=== PATIENT | female | born 1985 | race Caucasian/White ===

== ENCOUNTER 2016-10-06 22:18 | Observation (INO) | payer OTHER ==
[2016-10-06] MEDS ORDERED: MORPHINE SULFATE 10 MG/ML INJ IV ONE (22:57)
[2016-10-06] MEDS ORDERED: LIDOCAINE 1% INJ-PF (10 MG/ML) 30 ML SDV INJ ONE (22:58)
--- NOTE | 2016-10-06 22:58 | ER Document Report ---
ED GI Bleed / Rectal Pain - General Chief Complaint: Rectal Bleeding Stated Complaint: RECTAL BLEEDING Time Seen by Provider: 10/06/16 22:36 Mode of Arrival: Ambulatory Information source: Patient - HPI Patient complains to provider of: Bright red bld from rect., Hemorrhoids Onset: This afternoon Timing/Duration: Sudden Quality of pain: Achy Severity of symptoms: Moderate Pain Level: 4 Emesis description: Bright red blood Rectal bleeding: Bleeding w/o stool Associated symptoms: None Exacerbated by: Denies Relieved by: Denies Similar symptoms previously: Yes Recently seen / treated by doctor: No Notes: There is a 31-year-old female with a history of internal and external hemorrhoids, this afternoon around 3 PM she started having profuse bleeding from her rectal area, she denies any trauma, she recently moved here from [place] but reports when she saw him a physician in the [place] area and they recommended a procedure for her hemorrhoids, since she moved down here she was unable to follow-up and has not been seen by a physician in the [place] area yet, she reports rectal pain, denies any fevers, no vomiting Past Medical History - General Information source: Patient - Social History Smoking Status: Unknown if Ever Smoked Family History: Reviewed & Not Pertinent Review of Systems - Review of Systems Constitutional: No symptoms reported EENT: No symptoms reported Cardiovascular: No symptoms reported Respiratory: No symptoms reported Gastrointestinal: Rectal bleeding Genitourinary: No symptoms reported Female Genitourinary: No symptoms reported Musculoskeletal: No symptoms reported Skin: No symptoms reported Hematologic/Lymphatic: No symptoms reported Neurological/Psychological: No symptoms reported -: Yes All other systems reviewed and negative Physical Exam - Vital signs Vitals: Resp Pulse Ox 12 100 10/06/16 22:43 10/06/16 22:43 - General General appearance: Appears well, Alert In distress: None - HEENT Head: Normocephalic, Atraumatic Eyes: Normal Conjunctiva: Normal Extraocular movements intact: Yes Eyelashes: Normal Pupils: PERRL - Respiratory Respiratory status: No respiratory distress - Cardiovascular Rhythm: Regular, Tachycardia - Abdominal Inspection: Normal - Rectal Tenderness: Yes Stool: Bloody Hemorrhoids: Internal, External - Back Back: Normal, Nontender - Extremities General upper extremity: Normal inspection General lower extremity: Normal inspection - Neurological Orientation: AAOx4 [place] Coma Scale Eye Opening: Spontaneous [place] Coma Scale Verbal: Oriented [place] Coma Scale Motor: Obeys Commands [place] Coma Scale Total: 15 - Psychological Associated symptoms: Normal affect, Normal mood - Skin Skin Temperature: Warm Skin Moisture: Dry Skin Color: Normal Course - Re-evaluation Re-evalutation: 10/07/16 00:22 Patient was discussed with on-call sports management internship, I discussed patient's presentation, physical exam findings and the temporizing measures I have taken, he reports that the lidocaine with epinephrine soaked tampon in her rectum could acutely control the bleeding but ultimately she is going to need a procedure, and recommends that if she has lost as much blood as it sounds that she should likely be admitted and he will see the patient as an inpatient in the morning, I discussed this plan with patient and at bedside and they are in agreement with patient being admitted, patient was also discussed with the hospitalist who agrees to admit as an observation for further evaluation and treatment - Vital Signs Vital signs: Temp Pulse Resp BP Pulse Ox 12 111/81 100 10/06/16 22:43 10/07/16 00:30 10/07/16 00:30 - Laboratory Result Diagrams: 10/06/16 22:45 10/06/16 22:45 Laboratory results interpreted by me: 10/06/16 10/06/16 22:45 22:45 Seg Neutrophils % 39.2 L Lymphocytes % 51.2 H AST 38 H Procedures - Incision and Drainage Thrombosed hemorrhoid Time completed: 00:59 Type: Single Anesthetic type: 1% Lidocaine w/epi mL's of anesthetic: 2 Blade size: 11 I&D procedure: Chlorprep applied Incision Method: Incision made by scalpel Amount/type of drainage: Small amount of bleeding, tiny clot Notes: 10/07/16 01:00 A lidocaine with epinephrine soaked tampon was placed in patient's rectum Discharge - Discharge Clinical Impression: Lower GI bleed Condition: Stable Disposition: ADMITTED OBSERVATION Admitting Provider: Hospitalist Unit Admitted: Telemetry
[2016-10-06 23:03] LABS: ABSOLUTE BASOPHILS # (AUTO) 0.1 10^3/uL (0.0-0.2); ABSOLUTE EOSINOPHILS # (AUTO) 0.1 10^3/uL (0.0-0.6); ABSOLUTE LYMPHOCYTES (AUTO) 2.7 10^3/uL (0.5-4.7); ABSOLUTE MONOCYTES (AUTO) 0.3 10^3/uL (0.1-1.4); BASOPHILS % (AUTO) 1.3 % (0-2); EOSINOPHILS % (AUTO) 2.2 % (0-6); HEMATOCRIT 39.2 % (36.0-47.0); HEMOGLOBIN 13.5 g/dL (12.0-15.5); HGB HCT DIFFERENCE 1.3; LYMPHOCYTES % (AUTO) 51.2 % (13-45); MEAN CORPUSCULAR HEMOGLOBIN 33.1 pg (27.0-33.4); MEAN CORPUSCULAR HGB CONC 34.3 g/dL (32.0-36.0); MEAN CORPUSCULAR VOLUME 96 fl (80-97); MONOCYTES % (AUTO) 6.1 % (3-13); RED BLOOD COUNT 4.06 10^6/uL (3.72-5.28); RED CELL DISTRIBUTION WIDTH 13.6 % (11.5-14.0); SEGMENTED NEUTROPHILS % (AUTO) 39.2 % (42-78); WHITE BLOOD COUNT 5.2 10^3/uL (4.0-10.5)
[2016-10-06] MEDS ORDERED: LIDOCAINE 1%/EPINEPHRINE INJ 20 ML VIAL INJ ONE (23:04)
[2016-10-06] MEDS: NORMAL SALINE 1000 ML 1,000 ML IV PRN (23:10)
[2016-10-06 23:19] LABS: ALANINE AMINOTRANSFERASE 35 U/L (9-52); ALBUMIN 4.7 g/dL (3.5-5.0); ALKALINE PHOSPHATASE 65 U/L (38-126); ANION GAP 16 (5-19); ASPARTATE AMINO TRANSFERASE 38 U/L (14-36); BILIRUBIN,DIRECT 0.3 mg/dL (0.0-0.4); BILIRUBIN,TOTAL 0.4 mg/dL (0.2-1.3); BLOOD UREA NITROGEN 11 mg/dL (7-20); CALCIUM 9.4 mg/dL (8.4-10.2); CARBON DIOXIDE 22 mmol/L (22-30); CHLORIDE 106 mmol/L (98-107); CREATININE RESULT 0.76 mg/dL (0.52-1.25); GLUCOSE 86 mg/dL (75-110); LIPASE 86.3 U/L (23-300); POTASSIUM 4.3 mmol/L (3.6-5.0); SODIUM 143.9 mmol/L (137-145)
[2016-10-07] MEDS ORDERED: ONDANSETRON HCL INJ/PF 4 MG/2 ML SDV IV PRN (00:49)
[2016-10-07] MEDS ORDERED: ACETAMINOPHEN 325 MG TABLET PO PRN (00:49)
[2016-10-07 00:59] LABS: PROTHROMBIN TIME 13.4 SEC (11.4-15.4)
[2016-10-07 01:00] LABS: PARTIAL THROMBOPLASTIN TIME 30.3 SEC (23.5-35.8)
[2016-10-07] MEDS: NORMAL SALINE 1000 ML 1,000 ML IV PRN ×2 (01:09→01:10)
[2016-10-07] MEDS ORDERED: NORMAL SALINE 1000 ML 1,000 ML IV SCH (01:15)
[2016-10-07] MEDS ORDERED: MORPHINE SULFATE 10 MG/ML INJ ONE (03:26)
[2016-10-07] MEDS ORDERED: MORPHINE SULFATE 10 MG/ML INJ IV ONE (04:00)
[2016-10-07 04:34] LABS: APPEARANCE,URINE SLIGHTLY-CLOUDY; BILIRUBIN,URINE NEGATIVE (NEGATIVE); GLUCOSE, URINE NEGATIVE (NEGATIVE); KETONES,URINE NEGATIVE (NEGATIVE); LEUKOCYTE ESTERASE,URINE NEGATIVE (NEGATIVE); NITRITE,URINE NEGATIVE (NEGATIVE); PROTEIN,URINE NEGATIVE (NEGATIVE); URINE SPECIFIC GRAVITY 1.011; UROBILINOGEN,URINE NEGATIVE mg/dL (<2.0)
--- NOTE | 2016-10-07 06:22 | PDOC H&P ---
History of Present Illness Admission Date/PCP: 10/07/16 00:49 Patient complains of: rectal bleeding History of Present Illness: ANNE MARIE DRUMMOND is a 31 year old female with a past medical history of external hemorrhoids who had been in her usual state of health until approximately a month ago having exceptional worsening of her hemorrhoids prompting her to seek gastroenterology evaluation in [place] where she was recommended an unknown procedure. She has subsequently moved to [place] with persistent symptoms of pain developing profuse bleeding estimated 500 mL in the emergency room alone and has had the placement of a epinephrine and lidocaine tampon resulting in a swelling of the bleeding. Gastroenterology is consulted inpatient monitoring and referred to the hospitalist for admission. She denies any current or regular medications. Denies rectal trauma. Past Medical History Cardiac Medical History: Denies: Congestive Heart Failure, Myocardial Infarction, Hypertension Pulmonary Medical History: Denies: Asthma, Bronchitis, Chronic Obstructive Pulmonary Disease (COPD), Pneumonia, Tuberculosis Neurological Medical History: Denies: Seizures Renal/ Medical History: Denies: End Stage Renal Disease GI Medical History: Denies: Cirrhosis, Gastroesophageal Reflux Disease Musculoskeltal Medical History: Denies: Arthritis Psychiatric Medical History: Denies: Bipolar Disorder, Depression Hematology: Reports: Anemia, Bleeding Tendencies Past Surgical History Past Surgical History: Reports: None Social History Information Source: Patient Lives with: Family Smoking Status: Never Smoker Drugs: None Hx Prescription Drug Abuse: No - Advance Directive Resuscitation Status: Full Code Family History Family History: Hypertension, Other - No bleeding or blood clotting disorder Parental Family History Reviewed: Yes Children Family History Reviewed: Yes Sibling(s) Family History Reviewed.: Yes Medication/Allergy Allergies/Adverse Reactions: No Known Allergies Allergy (Unverified 10/07/16 00:59) Review of Systems Constitutional: ABSENT: chills, fever(s), headache(s), weight gain, weight loss Eyes: ABSENT: visual disturbances Ears: ABSENT: hearing changes Cardiovascular: ABSENT: chest pain, dyspnea on exertion, edema, orthropnea, palpitations Respiratory: ABSENT: cough, hemoptysis Gastrointestinal: ABSENT: abdominal pain, constipation, diarrhea, hematemesis, hematochezia, nausea, vomiting Genitourinary: ABSENT: dysuria, hematuria Musculoskeletal: ABSENT: joint swelling Integumentary: ABSENT: rash, wounds Neurological: ABSENT: abnormal gait, abnormal speech, confusion, dizziness, focal weakness, syncope Psychiatric: ABSENT: anxiety, depression, homidical ideation, suicidal ideation Endocrine: ABSENT: cold intolerance, heat intolerance, polydipsia, polyuria Hematologic/Lymphatic: ABSENT: easy bleeding, easy bruising Physical Exam Vital Signs: Temp Pulse Resp BP Pulse Ox 97.2 F 99 16 118/81 100 10/07/16 02:47 10/07/16 03:20 10/07/16 02:47 10/07/16 02:47 10/07/16 02:47 Intake & Output 10/05/16 10/06/16 10/07/16 11:59 11:59 11:59 Intake Total 360 Balance 360 Weight 47.9 kg General appearance: PRESENT: no acute distress, well-developed, well-nourished Head exam: PRESENT: atraumatic, normocephalic Eye exam: PRESENT: conjunctiva pink, EOMI, PERRLA. ABSENT: scleral icterus Ear exam: PRESENT: normal external ear exam Mouth exam: PRESENT: moist, tongue midline Neck exam: ABSENT: carotid bruit, JVD, lymphadenopathy, thyromegaly Respiratory exam: PRESENT: clear to auscultation cielo. ABSENT: rales, rhonchi, wheezes Cardiovascular exam: PRESENT: RRR. ABSENT: diastolic murmur, rubs, systolic murmur Pulses: PRESENT: normal dorsalis pedis pul Vascular exam: PRESENT: normal capillary refill GI/Abdominal exam: PRESENT: normal bowel sounds, soft. ABSENT: distended, guarding, mass, organolmegaly, rebound, tenderness Rectal exam: PRESENT: heme (+) stool, hemorrhoids Extremities exam: PRESENT: full ROM. ABSENT: calf tenderness, clubbing, pedal edema Neurological exam: PRESENT: alert, awake, oriented to person, oriented to place , oriented to time, oriented to situation, CN II-XII grossly intact. ABSENT: motor sensory deficit Psychiatric exam: PRESENT: appropriate affect, normal mood. ABSENT: homicidal ideation, suicidal ideation Skin exam: PRESENT: dry, intact, warm. ABSENT: cyanosis, rash Results Laboratory Results: 10/07/16 01:40 Urine Color STRAW Urine Appearance SLIGHTLY-CLOUDY Urine pH 5.0 Ur Specific [place] 1.011 Urine Protein NEGATIVE Urine Glucose (UA) NEGATIVE Urine Ketones NEGATIVE Urine Blood MODERATE H Urine Nitrite NEGATIVE Ur Leukocyte Esterase NEGATIVE Urine WBC (Auto) 3 Urine RBC (Auto) 1 Assessment & Plan - Diagnosis (1) Proctitis Is this a current diagnosis for this admission?: YesPlan: Symptomatic management and GI evaluation (2) Lower GI bleed Is this a current diagnosis for this admission?: YesPlan: Coagulopathy workup, gastroenterology consultation, serial CBCs packed red blood cell transfusion as needed - Time Time Spent: 30 to 50 Minutes - Inpatient Certification Medical Necessity: Need Close Monitoring Due to Risk of Patient Decompensation
[2016-10-07 07:14] LABS: ABSOLUTE BASOPHILS # (AUTO) 0.1 10^3/uL (0.0-0.2); ABSOLUTE MONOCYTES (AUTO) 0.3 10^3/uL (0.1-1.4); ABSOLUTE NEUT (AUTO) 2.1 10^3/uL (1.7-8.2); BASOPHILS % (AUTO) 1.2 % (0-2); HEMATOCRIT 27.4 % (36.0-47.0); HGB HCT DIFFERENCE 0.8; LYMPHOCYTES % (AUTO) 45.3 % (13-45); MEAN CORPUSCULAR HEMOGLOBIN 33.3 pg (27.0-33.4); MEAN CORPUSCULAR HGB CONC 34.2 g/dL (32.0-36.0); MEAN CORPUSCULAR VOLUME 97 fl (80-97); MONOCYTES % (AUTO) 5.8 % (3-13); RED BLOOD COUNT 2.82 10^6/uL (3.72-5.28); RED CELL DISTRIBUTION WIDTH 13.6 % (11.5-14.0); SEGMENTED NEUTROPHILS % (AUTO) 46.7 % (42-78); WHITE BLOOD COUNT 4.4 10^3/uL (4.0-10.5)
[2016-10-07 07:26] LABS: HEMOGLOBIN 9.4 g/dL (12.0-15.5)
[2016-10-07] MEDS ORDERED: ONDANSETRON HCL INJ/PF 4 MG/2 ML SDV IV ONE (08:35)
[2016-10-07] MEDS ORDERED: PROMETHAZINE HCL INJ 50 MG/1 ML VIAL IM PRN (08:36)
[2016-10-07] MEDS ORDERED: ONDANSETRON HCL INJ/PF 4 MG/2 ML SDV ONE (08:39)
--- NOTE | 2016-10-07 11:20 | PDOC CONSULTATION ---
Consultation Consult Date: 10/07/16 Attending physician:: BEAN VEGA Consult reason:: rectal bleeding. nausea and vomiting History of Present Illness Admission Date/PCP: 10/07/16 00:49 History of Present Illness: patient was admitted by the hospitalist service I was asked to see the patient by Dr enrique patient has moved from [place] saw surgery there and was scheduled to have staple hemorrhoidectomy done until she had to move has been having significant bleeding she relates to me that she had hemorrhoids that was lanced in the past she has had a colonoscopy about 3-4 years ago was negative for other sources of bleeding she also had EGD done was told that she had some sort of gastroparesis she is having nausea and vomiting for now patient denies any hemetemesis I have asked Dr Enrique to contact surgery to see if that can be done as an inpatient if not, she may need EGD done to work up her nausea and vomiting patient may need gastric emptying scan Past Medical History Cardiac Medical History: Denies: Congestive Heart Failure, Myocardial Infarction, Hypertension Pulmonary Medical History: Denies: Asthma, Bronchitis, Chronic Obstructive Pulmonary Disease (COPD), Pneumonia, Tuberculosis Neurological Medical History: Denies: Seizures Renal/ Medical History: Denies: End Stage Renal Disease GI Medical History: Denies: Cirrhosis, Gastroesophageal Reflux Disease Musculoskeltal Medical History: Denies: Arthritis Psychiatric Medical History: Denies: Bipolar Disorder, Depression Hematology: Reports: Anemia, Bleeding Tendencies Past Surgical History Past Surgical History: Reports: None Social History Lives with: Family Smoking Status: Never Smoker Drugs: None Hx Prescription Drug Abuse: No - Advance Directive Resuscitation Status: Full Code Family History Family History: Hypertension, Other - No bleeding or blood clotting disorder Parental Family History Reviewed: Yes Children Family History Reviewed: Unknown Sibling(s) Family History Reviewed.: Unknown Medication/Allergy Home Medications: Diphenhydramine HCl [Benadryl 25 mg Capsule] 25 mg PO HSP PRN 10/07/16 Vit W-Ca,Fe,FA(<1 mg) [ Vitamins] 1 tab PO DAILY 10/07/16 Allergies/Adverse Reactions: No Known Allergies Allergy (Unverified 10/07/16 00:59) Review of Systems Constitutional: ABSENT: fever(s), headache(s), night sweats, weakness Eyes: ABSENT: visual disturbances Ears: ABSENT: hearing changes Nose, Mouth, and Throat: ABSENT: mouth pain Cardiovascular: ABSENT: chest pain, edema, orthropnea Respiratory: ABSENT: dyspnea, hemoptysis Gastrointestinal: PRESENT: hematochezia, nausea, vomiting. ABSENT: diarrhea, dysphagia, melena Genitourinary: ABSENT: dysuria, hematuria Musculoskeletal: ABSENT: deformity, joint swelling Neurological: ABSENT: focal weakness, syncope, tingling, tremor(s), vertigo Endocrine: ABSENT: polydipsia, polyphagia, polyuria Hematologic/Lymphatic: ABSENT: easy bruising, lymphadenopathy Physical Exam Vital Signs: Temp Pulse Resp BP Pulse Ox 98.2 F 98 20 106/62 100 10/07/16 08:12 10/07/16 08:12 10/07/16 08:12 10/07/16 08:12 10/07/16 08:12 Intake & Output 10/06/16 10/07/16 10/08/16 06:59 06:59 06:59 Intake Total 360 Balance 360 Weight 47.9 kg General appearance: PRESENT: no acute distress, cooperative Head exam: PRESENT: atraumatic, normocephalic Eye exam: PRESENT: EOMI, PERRLA. ABSENT: nystagmus, periorbital swelling, scleral icterus Mouth exam: PRESENT: neck supple Throat exam: ABSENT: tonsillar exudate, tonsillogmegaly Neck exam: ABSENT: meningismus, tenderness, thyromegaly Respiratory exam: PRESENT: clear to auscultation cielo, symmetrical, unlabored. ABSENT: tachypnea, wheezes Cardiovascular exam: PRESENT: RRR, +S1, +S2 Pulses: PRESENT: normal carotid pulses GI/Abdominal exam: PRESENT: normal bowel sounds, soft. ABSENT: Chen's sign, rebound, rigid, tenderness Extremities exam: ABSENT: joint swelling Musculoskeletal exam: PRESENT: full ROM Neurological exam: PRESENT: alert, awake, oriented to time, oriented to situation, reflexes normal, CN II-XII grossly intact Psychiatric exam: PRESENT: appropriate affect Skin exam: PRESENT: normal color. ABSENT: mottled, pallor, petechiae, urticaria , vesicles Results Laboratory Results: 10/07/16 06:27 10/07/16 10/07/16 01:40 06:27 WBC 4.4 RBC 2.82 L Hgb 9.4 L D Hct 27.4 L MCV 97 MCH 33.3 MCHC 34.2 RDW 13.6 Plt Count 195 Seg Neutrophils % 46.7 Lymphocytes % 45.3 H Monocytes % 5.8 Eosinophils % 1.0 Basophils % 1.2 Absolute Neutrophils 2.1 Absolute Lymphocytes 2.0 Absolute Monocytes 0.3 Absolute Eosinophils 0.0 Absolute Basophils 0.1 Urine Color STRAW Urine Appearance SLIGHTLY-CLOUDY Urine pH 5.0 Ur Specific [place] 1.011 Urine Protein NEGATIVE Urine Glucose (UA) NEGATIVE Urine Ketones NEGATIVE Urine Blood MODERATE H Urine Nitrite NEGATIVE Ur Leukocyte Esterase NEGATIVE Urine WBC (Auto) 3 Urine RBC (Auto) 1 Assessment & Plan - Diagnosis (1) Nausea & vomiting Plan: patient may need gastric emptying scan while she has been admitted As I understand a previous EGD has also been done if positive results from emptying scan, may benefit from Botox injections to help her symptoms (2) Lower GI bleed Is this a current diagnosis for this admission?: YesPlan: she has had a previous work up with colonoscopy she was scheduled for staple hemrrhoidectomy but had moved to [place] will get surgery to see if they want to proceed as inpatient or as outpatient she likely does not need another colonoscopy for now I spoke with Dr Enrique with regards to the case further recommendations to follow - Time Time Spent: 50 to 70 Minutes
--- NOTE | 2016-10-07 12:03 | RADIOLOGY REPORT (SQ) ---
EXAM DESCRIPTION: CT ABD/PELVIS ORAL ONLY COMPLETED DATE/TIME: 10/07/2016 11:44 am REASON FOR STUDY: abdominal pain, gi bleed COMPARISON: None. TECHNIQUE: CT scan of the abdomen and pelvis performed with oral contrast and no intravenous contras t. Images reviewed with lung, soft tissue, and bone windows. Reconstructed coronal and sagittal MPR i mages reviewed. All images stored on PACS. All CT scanners at this facility use dose modulation, iterative reconstruction, and/or weight based d osing when appropriate to reduce radiation dose to as low as reasonably achievable (ALARA). [facility]: Dose Right [facility]: CareDose [facility]: Dose Right [facility]: Teradose 4D [facility]: [email or web address] RADIATION DOSE: 2.73mGy. LIMITATIONS: None. FINDINGS: LOWER CHEST: No significant findings. No nodules or infiltrates. NON-CONTRASTED LIVER, SPLEEN, ADRENALS: Evaluation limited by lack of IV contrast. No identified sign ificant masses. PANCREAS: No masses. No peripancreatic inflammatory changes. GALLBLADDER: No identified stones by CT criteria. No inflammatory changes to suggest cholecystitis. RIGHT KIDNEY AND URETER: No solid masses. No significant calcification. No hydronephrosis or hydroure ter. LEFT KIDNEY AND URETER: No solid masses. No significant calcification. No hydronephrosis or hydrouret er. AORTA AND RETROPERITONEUM: No aneurysm. No retroperitoneal masses or adenopathy. BOWEL AND PERITONEAL CAVITY: No obvious masses or inflammatory changes. No free fluid. APPENDIX: Normal. PELVIS, BLADDER, AND ABDOMINAL WALL: No abnormal pelvic masses. No abdominal wall hernias. Bladder un remarkable. BONES: No significant findings. OTHER: No other significant finding. IMPRESSION: NO SIGNIFICANT OR ACUTE ABDOMINAL PROCESS. TECHNICAL DOCUMENTATION: JOB ID: [id number] Quality ID # [id number]: Final reports with documentation of one or more dose reduction techniques (e.g., Au tomated exposure control, adjustment of the mA and/or kV according to patient size, use of iterative reconstruction technique) 2010 [employer]- All Rights Reserved
[2016-10-07] MEDS ORDERED: DEXTROSE 50%-WATER 25 GM/50 ML DISP.SYRIN IV PRN ×2 (13:01)
[2016-10-07] MEDS ORDERED: DEXTROSE 40% GEL 15 GM TUBE PO PRN ×2 (13:01)
[2016-10-07] MEDS ORDERED: GLUCAGON,HUMAN RECOMB 1 MG INJ SUBCUT PRN (13:01)
[2016-10-07] MEDS ORDERED: MORPHINE SULFATE 10 MG/ML INJ IV PRN (13:52)
[2016-10-07 14:35] LABS: ABSOLUTE LYMPHOCYTES (AUTO) 1.3 10^3/uL (0.5-4.7); ABSOLUTE MONOCYTES (AUTO) 0.2 10^3/uL (0.1-1.4); ABSOLUTE NEUT (AUTO) 3.9 10^3/uL (1.7-8.2); BASOPHILS % (AUTO) 0.6 % (0-2); EOSINOPHILS % (AUTO) 0.2 % (0-6); HEMATOCRIT 26.2 % (36.0-47.0); HEMOGLOBIN 8.7 g/dL (12.0-15.5); HGB HCT DIFFERENCE -0.1; LYMPHOCYTES % (AUTO) 23.5 % (13-45); MEAN CORPUSCULAR HEMOGLOBIN 32.5 pg (27.0-33.4); MEAN CORPUSCULAR HGB CONC 33.4 g/dL (32.0-36.0); MEAN CORPUSCULAR VOLUME 97 fl (80-97); RED BLOOD COUNT 2.69 10^6/uL (3.72-5.28); RED CELL DISTRIBUTION WIDTH 13.8 % (11.5-14.0); SEGMENTED NEUTROPHILS % (AUTO) 71.7 % (42-78); WHITE BLOOD COUNT 5.5 10^3/uL (4.0-10.5)
[2016-10-07] MEDS: ONDANSETRON HCL INJ/PF 4 MG/2 ML SDV IV PRN ×2 (17:03→23:29)
[2016-10-07 22:42] LABS: ABSOLUTE EOSINOPHILS # (AUTO) 0.1 10^3/uL (0.0-0.6); ABSOLUTE LYMPHOCYTES (AUTO) 1.3 10^3/uL (0.5-4.7); ABSOLUTE MONOCYTES (AUTO) 0.2 10^3/uL (0.1-1.4); ABSOLUTE NEUT (AUTO) 1.3 10^3/uL (1.7-8.2); BASOPHILS % (AUTO) 1.2 % (0-2); EOSINOPHILS % (AUTO) 2.3 % (0-6); HEMATOCRIT 26.9 % (36.0-47.0); HEMOGLOBIN 9.3 g/dL (12.0-15.5); LYMPHOCYTES % (AUTO) 45.4 % (13-45); MEAN CORPUSCULAR HEMOGLOBIN 33.3 pg (27.0-33.4); MEAN CORPUSCULAR HGB CONC 34.6 g/dL (32.0-36.0); MEAN CORPUSCULAR VOLUME 96 fl (80-97); RED BLOOD COUNT 2.79 10^6/uL (3.72-5.28); RED CELL DISTRIBUTION WIDTH 13.5 % (11.5-14.0); SEGMENTED NEUTROPHILS % (AUTO) 43.1 % (42-78)
[2016-10-07 22:47] LABS: WHITE BLOOD COUNT 2.9 10^3/uL (4.0-10.5)
[2016-10-08 09:31] VITALS: BP 105/73
--- NOTE | 2016-10-09 20:44 | PDOC DISCHARGE SUMMARY ---
General - Admit/Disc Date/PCP Admission Date/Primary Care Provider: 10/07/16 00:49 Discharge Date: 10/08/16 - Discharge Diagnosis (1) Acute blood loss anemia Is this a current diagnosis for this admission?: Yes (2) Thrombosed external hemorrhoid Is this a current diagnosis for this admission?: Yes (3) Lower GI bleed Is this a current diagnosis for this admission?: Yes - Additional Information Resuscitation Status: Full Code Discharge Diet: Regular, Other (Comments) - high fiber Discharge Activity: Activity As Tolerated Home Medications: Diphenhydramine HCl [Benadryl 25 mg Capsule] 25 mg PO HSP PRN 10/07/16 Vit W-Ca,Fe,FA(<1 mg) [ Vitamins] 1 tab PO DAILY 10/07/16 Docusate Sodium [Colace 100 mg Capsule] 100 mg PO BID #60 capsule 10/08/16 Hydrocortisone Acetate [Anusol Hc 25 mg Supp.rect] 1 supp.rect ME BID #14 supp.rect 10/08/16 Ondansetron [Zofran Odt 4 mg Tablet] 1 - 2 tab PO Q4HP PRN #10 tab.rapdis History of Present Illness History of Present Illness: ANNE MARIE DRUMMOND is a 31 year old femalewith a past medical history of external hemorrhoids who had been in her usual state of health until approximately a month ago having exceptional worsening of her hemorrhoids prompting her to seek gastroenterology evaluation in [place] where she was recommended an unknown procedure. She has subsequently moved to [place] with persistent symptoms of pain developing profuse bleeding estimated 500 mL in the emergency room alone and has had the placement of a epinephrine and lidocaine tampon resulting in a swelling of the bleeding. Gastroenterology is consulted inpatient monitoring and referred to the hospitalist for admission. She denies any current or regular medications. Denies rectal trauma. Hospital Course Hospital Course: Patient underwent I&D of thrombosed external hemorrhoid in the emergency department. Patient did suffer from significant blood loss after this procedure. Patient also had significant blood loss prior to procedure. She reports she was going through 3+ overnight pads per hour prior to presentation to the emergency department. Patient was placed on observation and serial CBCs were followed. Patient had no further decline of her hemoglobin. She was seen by GI. She was also seen by surgery. It was recommended that patient have outpatient hemorrhoidectomy. Patient had cessation of her initial bleeding by 9 :00 that morning and was discharged the next day in stable condition. Patient is advised to keep a soft stool not to strain and use sitz bath. Patient is also advised to refrain from pelvic activity. Physical Exam Vital Signs: Temp Pulse Resp BP Pulse Ox 98.3 F 75 16 105/73 100 10/08/16 11:37 10/08/16 11:37 10/08/16 11:37 10/08/16 11:37 10/08/16 11:37 Intake & Output 10/08/16 10/09/16 10/10/16 06:59 06:59 06:59 Intake Total 650 Output Total 1450 Balance -800 Weight 49.2 kg Exam: General: No acute distress no scleral icterus, no conjunctival injection Neck: No JVD, trachea midline Chest: CTA B CV: RRR, normal S1 and S2, no M/R/G Abdomen: Soft, nontender to palpation, nondistended, active bowel sounds; no rebound, rigidity, or guarding Extremities: No cyanosis, clubbing or edema Neuro: Cranial nerves II through XII are grossly intact without focal deficits; awake alert and oriented 3 Psych: Normal mood and affect Results Laboratory Results: 10/07/16 22:02 Impressions: Abdomen/Pelvis CT 10/07/16 00:00 IMPRESSION: NO SIGNIFICANT OR ACUTE ABDOMINAL PROCESS. Qualifiers PATEINT BEING DISCHARGED WITH ANY OF THE FOLLOWING DIAGNOSIS?: No Plan Time Spent: Less than 30 Minutes
== END 2016-10-08 11:50 | disposition home or self-care (01) ==
LOC: ER 22:18 → EH 10-07 00:49 → UNDOADMOB 10-07 01:00 → EH 10-07 01:00 → 5 10-07 02:44
PROVIDERS: ADMIT Internal Medicine; ATTEND Internal Medicine
PROC: 0D9P0ZZ Drainage of Rectum, Open Approach (ICD-10-PCS; principal; 2016-10-07)
DX: D62 Acute posthemorrhagic anemia (principal); K64.5 Perianal venous thrombosis; K92.2 Gastrointestinal hemorrhage, unspecified; R11.2 Nausea with vomiting, unspecified; K64.8 Other hemorrhoids
CPT/HCPCS: 46083; 99285; 96361; 96374; 86900; 86901; 36415 ×2; 86850; 83690; 84703; 85025 ×2; 85610; 85730; 80053; 81001; 74176; G0378 ×3; J3490; J2270 ×2; J2405; J7030 ×2

== ENCOUNTER 2016-12-17 20:54 | Emergency (ER) | payer OTHER ==
[2016-12-17] MEDS ORDERED: HYDROMORPHONE HCL INJ/PF 2 MG/ML AMPULE IV ONE (23:40)
[2016-12-17 23:42] LABS: ABSOLUTE LYMPHOCYTES (AUTO) 2.1 10^3/uL (0.5-4.7); ABSOLUTE MONOCYTES (AUTO) 0.3 10^3/uL (0.1-1.4); ABSOLUTE NEUT (AUTO) 0.9 10^3/uL (1.7-8.2); EOSINOPHILS % (AUTO) 1.2 % (0-6); HEMATOCRIT 40.6 % (36.0-47.0); HEMOGLOBIN 13.9 g/dL (12.0-15.5); HGB HCT DIFFERENCE 1.1; LYMPHOCYTES % (AUTO) 62.2 % (13-45); MEAN CORPUSCULAR HEMOGLOBIN 33.2 pg (27.0-33.4); MEAN CORPUSCULAR HGB CONC 34.2 g/dL (32.0-36.0); MEAN CORPUSCULAR VOLUME 97 fl (80-97); MONOCYTES % (AUTO) 8.4 % (3-13); RED BLOOD COUNT 4.18 10^6/uL (3.72-5.28); RED CELL DISTRIBUTION WIDTH 14.2 % (11.5-14.0); SEGMENTED NEUTROPHILS % (AUTO) 27.2 % (42-78); WHITE BLOOD COUNT 3.4 10^3/uL (4.0-10.5)
--- NOTE | 2016-12-17 23:43 | ER Document Report ---
ED General - General Chief Complaint: Rectal Bleeding Stated Complaint: RECTAL BLEEDING/POSSIBLE HEMORRHOIDS Time Seen by Provider: 12/17/16 23:31 Notes: Patient is a 31-year-old female presents with complaint of hemorrhoids. She has a history of recurrent problems with hemorrhoids. She had them incised and drained in the past in the ER but then she started to bleed significantly had to be admitted. She then followed up with Dr. Chu patiently had a laser procedure performed and hemorrhoids. She says it did not improve them. She has an appointment with him in 4 weeks. She has lidocaine jelly as she places on them. She uses preparation ointment. She says she continues to have worsening pain and cannot have a bowel movement without severe pain. No fevers. No vomiting. Some intermittent bleeding. No other complaints at this time. TRAVEL OUTSIDE OF THE [place] IN LAST 30 DAYS: No - Related Data Allergies/Adverse Reactions: No Known Allergies Allergy (Unverified 10/07/16 00:59) Past Medical History - Social History Smoking Status: Never Smoker Frequency of alcohol use: None Drug Abuse: None Family History: Hypertension, Other - No bleeding or blood clotting disorder Patient has suicidal ideation: No Patient has homicidal ideation: No - Past Medical History Cardiac Medical History: Denies: Hx Congestive Heart Failure, Hx Heart Attack, Hx Hypertension Pulmonary Medical History: Denies: Hx Asthma, Hx Bronchitis, Hx COPD, Hx Pneumonia, Hx Tuberculosis Neurological Medical History: Denies: Hx Seizures Renal/ Medical History: Reports: Hx Kidney Stones. Denies: Hx End Stage Renal Disease, Hx Peritoneal Dialysis GI Medical History: Denies: Hx Cirrhosis, Hx Gastroesophageal Reflux Disease, Hx Ulcer Musculoskeltal Medical History: Denies Hx Arthritis, Denies Hx Multiple Sclerosis Psychiatric Medical History: Denies: Hx Bipolar Disorder, Hx Depression, Hx Schizophrenia - Immunizations Hx Diphtheria, Pertussis, Tetanus Vaccination: No Review of Systems - Review of Systems Notes: My Normal Review Basic REVIEW OF SYSTEMS: CONSTITUTIONAL : Denies fever, chills, or sweats. Denies recent illness. RESPIRATORY: Denies cough, cold, or chest congestion. Denies shortness of breath, difficulty breathing, or wheezing. GASTROINTESTINAL: Denies abdominal pain. Denies nausea, vomiting, or diarrhea. Denies constipation. Hemorrhoids GENITOURINARY: Denies difficulty urinating, painful urination, burning, frequency, or blood in urine. FEMALE GENITOURINARY: Denies vaginal bleeding, abnormal or irregular periods. LMP: MUSCULOSKELETAL: Denies neck or back pain or joint pain or swelling. SKIN: Denies rash or skin lesions. NEUROLOGICAL: Denies altered mental status or loss of consciousness. Denies headache. Denies weakness or paralysis or loss of use of either side. Denies problems with gait or speech. Denies sensory or motor loss.SYCHIATRIC: Denies anxiety or stress or depression. ALL OTHER SYSTEMS REVIEWED AND NEGATIVE. Physical Exam - Vital signs Vitals: Temp Pulse Resp BP Pulse Ox 98.6 F 107 H 16 119/85 99 12/17/16 21:18 12/17/16 21:18 12/17/16 21:18 12/17/16 21:18 12/17/16 21:18 - Notes Notes: General Appearance: Well nourished, alert, cooperative, no acute distress, moderate obvious discomfort. Vitals: reviewed, See vital signs table. Eyes: PERRL, EOMI, Conjuctiva clear Rectal: Several internal and external hemorrhoids. Some are tens and one is dark in color as if it may be thrombosed. No active bleeding at this time. Skin: warm, dry, appropriate color, no rash Neuro: speech clear, oriented x 3, normal affect, responds appropriately to questions. Course - Re-evaluation Re-evalutation: 12/18/16 06:44 [address] did speak with Dr[address] Chu. Dr. Chu agrees to follow-up the patient is office early this coming week. He said the patient does have a significantly thrombosed hemorrhoid and we should consider lancing or have shoulder surgery lancet. My initial examination she does have one small hemorrhoid that appear to be thrombosed. When I went reevaluate her she said the pain medicine the latter to relaxant was a hemorrhoids were gone. She still had one next internal hemorrhoid it was pushed out but it was not thrombosed. It was soft and normal color. At this time there is no thrombosed hemorrhoids that can be incised. I will place her on pain medicine. I encouraged her to continue the topical treatments. I encourage her to continue the fiber supplementation as well as a stool softener. Encouraged her return to ER if she has fevers, heavy bleeding, or feels unwell. She agrees to call Dr. Chu's office to make the close follow-up appointment. Dictation of this chart was performed using voice recognition software; therefore, there may be some unintended grammatical errors. - Vital Signs Vital signs: Temp Pulse Resp BP Pulse Ox 98.6 F 88 18 115/78 98 12/17/16 21:18 12/18/16 01:25 12/18/16 01:25 12/18/16 01:25 12/18/16 01:25 - Laboratory Result Diagrams: 12/17/16 23:03 Laboratory results interpreted by me: 12/17/16 23:03 WBC 3.4 L RDW 14.2 H Seg Neutrophils % 27.2 L Lymphocytes % 62.2 H Absolute Neutrophils 0.9 L Discharge - Discharge Clinical Impression: Hemorrhoid Qualifiers: Hemorrhoid type: unspecified Qualified Code(s): K64.9 - Unspecified hemorrhoids Condition: Good Disposition: HOME, SELF-CARE Instructions: Oral Narcotic Medication ([facility]) Additional Instructions: Please take the pain medicine as prescribed. This medicine can cause some consitpation so it is important to continue your stool softners and the fiber supplementation. Please return to the ER immediately if you have heavy bleeding , fevers, or feel okay. I spoke with Dr. Chu on the phone who took down your name and agrees to move your appointment to this coming week. Please call his office for a new appointment time. Prescriptions: Tramadol HCl [Ultram 50 mg Tablet] 50 mg PO Q6HP PRN #20 tablet PRN Reason: Ondansetron [Zofran Odt 4 mg Tablet] 1 tab PO Q4H PRN #15 tab.rapdis PRN Reason: For Nausea/Vomiting Forms: Return to Work
[2016-12-17] MEDS ORDERED: ONDANSETRON HCL INJ/PF 4 MG/2 ML SDV IV ONE (23:57)
[2016-12-18] MEDS ORDERED: LIDOCAINE 2% JELLY 30 ML TUBE TOP ONE (00:49)
[2016-12-18] MEDS ORDERED: LIDOCAINE 2% JELLY 5 ML TUBE ONE (01:01)
[2016-12-18 01:25] VITALS: BP 115/78
[2016-12-18] MEDS ORDERED: ONDANSETRON ODT 4 MG TAB (6 TAB/DSPK) PO PRN (01:28)
== END 2016-12-18 01:33 | disposition home or self-care (01) ==
LOC: ER 20:54
DX: K64.9 Unspecified hemorrhoids (principal); K62.5 Hemorrhage of anus and rectum
CPT/HCPCS: 99283; 96374; 96375; 36415; 84703; 85025; J1170; J2405

== ENCOUNTER 2017-01-19 01:18 | Emergency (ER) | payer OTHER ==
[2017-01-19 02:11] LABS: ANION GAP 14 (5-19); BLOOD UREA NITROGEN 9 mg/dL (7-20); CALCIUM 9.1 mg/dL (8.4-10.2); CARBON DIOXIDE 26 mmol/L (22-30); CHLORIDE 107 mmol/L (98-107); CREATININE RESULT 0.56 mg/dL (0.52-1.25); GLUCOSE 79 mg/dL (75-110); POTASSIUM 4.4 mmol/L (3.6-5.0); SODIUM 146.6 mmol/L (137-145)
[2017-01-19] MEDS ORDERED: OXYCODONE-ACETAMINOPHEN 5-325 MG TABLET PO ONE (03:17)
[2017-01-19] MEDS ORDERED: HYDROCODONE/ACETAMINOPHEN 5-325 MG 6 TAB/DSPK PO PRN (03:17)
[2017-01-19] MEDS ORDERED: IBUPROFEN 400 MG TABLET PO ONE (03:17)
[2017-01-19 03:28] LABS: APPEARANCE,URINE CLEAR; BILIRUBIN,URINE NEGATIVE (NEGATIVE); GLUCOSE, URINE NEGATIVE (NEGATIVE); KETONES,URINE NEGATIVE (NEGATIVE); LEUKOCYTE ESTERASE,URINE NEGATIVE (NEGATIVE); NITRITE,URINE NEGATIVE (NEGATIVE); PROTEIN,URINE NEGATIVE (NEGATIVE); URINE SPECIFIC GRAVITY 1.004; UROBILINOGEN,URINE NEGATIVE mg/dL (<2.0)
--- NOTE | 2017-01-19 03:43 | ER Document Report ---
ED General - General Chief Complaint: Urinary Retention Stated Complaint: POST SURGICAL PAIN Time Seen by Provider: 01/19/17 01:45 Notes: Patient is a 31-year-old female who had a hemorrhoid resection done on 08 January at [facility], was unable to void afterwards so was discharged home on the with a catheter in place. States that this was removed by her primary care doctor on the and she was able to void without difficulty until she ran out of Percocet on the of this month. States that the pain with attempts at urinating more so severe that they prevented her from actually being able to urinate. Does admit however that she was able to urinate when laying in a warm bath. Does describe an ongoing severe, constant, cramping pain to her rectum and lower abdomen. It has been improved since the Lamb catheter was placed her in the emergency department. She has not yet been able to follow-up with her surgeon due to the holiday weekend. TRAVEL OUTSIDE OF THE [place] IN LAST 30 DAYS: No - Related Data Allergies/Adverse Reactions: No Known Allergies Allergy (Unverified 10/07/16 00:59) Past Medical History - General Information source: Patient - Social History Smoking Status: Never Smoker Frequency of alcohol use: None Drug Abuse: None Lives with: Spouse/Significant other Family History: Hypertension, Other - No bleeding or blood clotting disorder Patient has suicidal ideation: No Patient has homicidal ideation: No - Past Medical History Cardiac Medical History: Denies: Hx Congestive Heart Failure, Hx Heart Attack, Hx Hypertension Pulmonary Medical History: Denies: Hx Asthma, Hx Bronchitis, Hx COPD, Hx Pneumonia, Hx Tuberculosis Neurological Medical History: Denies: Hx Seizures Renal/ Medical History: Reports: Hx Kidney Stones. Denies: Hx End Stage Renal Disease, Hx Peritoneal Dialysis GI Medical History: Denies: Hx Cirrhosis, Hx Gastroesophageal Reflux Disease, Hx Ulcer Musculoskeltal Medical History: Denies Hx Arthritis, Denies Hx Multiple Sclerosis Psychiatric Medical History: Denies: Hx Bipolar Disorder, Hx Depression, Hx Schizophrenia - Immunizations Hx Diphtheria, Pertussis, Tetanus Vaccination: No Review of Systems - Review of Systems Notes: Constitutional: Negative for fever. HENT: Negative for sore throat. Eyes: Negative for visual changes. Cardiovascular: Negative for chest pain. Respiratory: Negative for shortness of breath. Gastrointestinal: Positive for abdominal and rectal pain Genitourinary: Positive for urinary retention Musculoskeletal: Negative for back pain. Skin: Negative for rash. Neurological: Negative for headaches, weakness or numbness. 10 point ROS negative except as marked above and in HPI. Physical Exam - Vital signs Vitals: Temp Pulse Resp BP Pulse Ox 97.9 F 107 H 18 115/74 100 01/19/17 01:23 01/19/17 01:23 01/19/17 01:23 01/19/17 01:23 01/19/17 01:23 Interpretation: Normal Notes: PHYSICAL EXAMINATION: GENERAL: Well-appearing, well-nourished and in no acute distress. HEAD: Atraumatic, normocephalic. EYES: Pupils equal round and reactive to light, extraocular movements intact, sclera anicteric, conjunctiva are normal. ENT: nares patent, oropharynx clear without exudates. Moderately dry mucous membranes. NECK: Normal range of motion, supple without lymphadenopathy LUNGS: Breath sounds clear to auscultation bilaterally and equal. No wheezes rales or rhonchi. HEART: Regular rate and rhythm without murmurs ABDOMEN: Soft, mild suprapubic and left lower quadrant abdominal tenderness to palpation. No rebound or guarding. EXTREMITIES: Normal range of motion, no pitting or edema. No cyanosis. NEUROLOGICAL: No focal neurological deficits. Moves all extremities spontaneously and on command. PSYCH: Normal mood, normal affect. SKIN: Warm, Dry, normal turgor, no rashes or lesions noted. Course - Re-evaluation Re-evalutation: 01/19/17 03:40 Patient presents with urinary retention in the setting of a recent hemorrhoidectomy. She had a catheter removed and had tolerated the removal of the Lamb catheter for 4 days until she ran out of pain medications and then states that the pain was so severe she was unable to urinate except when she would be lying in a warm bath. A Lamb catheter has been replaced here with a total of 400 cc of urine output. Laboratories otherwise unremarkable. She is requesting the catheter stay in place until she can follow-up with her surgeon. I think this is a reasonable plan given tonight's events. Will discharge the very small amount of pain medications. At this time will discharge with return precautions and follow-up recommendations. Verbal discharge instructions given a the bedside and opportunity for questions given. Medication warnings reviewed. Patient is in agreement with this plan and has verbalized understanding of return precautions and the need for primary care follow-up in the next 24-72 hours. - Vital Signs Vital signs: Temp Pulse Resp BP Pulse Ox 98 F 94 18 101/64 98 01/19/17 04:47 01/19/17 04:47 01/19/17 04:47 01/19/17 04:47 01/19/17 04:47 - Laboratory Result Diagrams: 01/19/17 01:50 Laboratory results interpreted by me: 01/19/17 01:50 Sodium 146.6 H Discharge - Discharge Clinical Impression: Urinary retention, Postoperative pain Condition: Good Disposition: HOME, SELF-CARE Additional Instructions: Keep the Lamb in place until you follow-up with your primary care doctor. Return for any additional concerns.
[2017-01-19 04:48] VITALS: BP 101/64
== END 2017-01-19 04:49 | disposition home or self-care (01) ==
LOC: ER 01:18
DX: R33.9 Retention of urine, unspecified (principal); G89.18 Other acute postprocedural pain; Z87.442 Personal history of urinary calculi
CPT/HCPCS: 99284; 51702; 36415; 80048; 81001; J3490

== ENCOUNTER 2017-02-06 17:01 | Emergency (ER) | payer OTHER ==
[2017-02-06 17:06] VITALS: BP 119/82
[2017-02-06] MEDS ORDERED: PENICILLIN V POTASSIUM 500 MG TABLET PO ONE (17:29)
[2017-02-06] MEDS ORDERED: ACETAMINOPHEN 325 MG TABLET PO ONE (17:29)
--- NOTE | 2017-02-06 17:29 | ER Document Report ---
HPI - HPI Patient complains to provider of: Sore throat, dental pain Onset: This morning Onset/Duration: Gradual Quality of pain: Achy Pain Level: 4 Context: Patient presents complaining of sore throat, right upper dental pain and tender lymph nodes that started today. Patient reports low-grade fever of 100 at home. Associated Symptoms: Fever, Sore throat. denies: Headache - Low-grade Exacerbated by: Denies Relieved by: Denies Similar symptoms previously: Yes Recently seen / treated by doctor: Yes - ROS ROS below otherwise negative: Yes Systems Reviewed and Negative: Yes All other systems reviewed and negative - CONSTITUTIONAL Constitutional: REPORTS: Fever - Low-grade fever - EENT EENT: REPORTS: Sore Throat - NEURO Neurology: DENIES: Headache - RESPIRATORY Respiratory: DENIES: Coughing - GASTROINTESTINAL Gastrointestinal: DENIES: Nausea, Patient vomiting - REPRODUCTIVE Reproductive: DENIES: : - DERM Skin Color: Normal Skin Problems: None Past Medical History - General Information source: Patient - Social History Smoking Status: Never Smoker Frequency of alcohol use: Occasional Drug Abuse: None Occupation: None Lives with: Family Family History: Hypertension, Other - No bleeding or blood clotting disorder - Medical History Medical History: Negative - Past Medical History Cardiac Medical History: Denies: Hx Congestive Heart Failure, Hx Heart Attack, Hx Hypertension Pulmonary Medical History: Denies: Hx Asthma, Hx Bronchitis, Hx COPD, Hx Pneumonia, Hx Tuberculosis Neurological Medical History: Denies: Hx Seizures Renal/ Medical History: Reports: Hx Kidney Stones. Denies: Hx End Stage Renal Disease, Hx Peritoneal Dialysis GI Medical History: Denies: Hx Cirrhosis, Hx Gastroesophageal Reflux Disease, Hx Ulcer Musculoskeltal Medical History: Denies Hx Arthritis, Denies Hx Multiple Sclerosis Psychiatric Medical History: Denies: Hx Bipolar Disorder, Hx Depression, Hx Schizophrenia Past Surgical History: Reports: Hx Oral Surgery, Other - Hemorrhoidectomy - Immunizations Hx Diphtheria, Pertussis, Tetanus Vaccination: No Vertical Provider Document - CONSTITUTIONAL Agree With Documented VS: Yes Exam Limitations: No Limitations General Appearance: WD/WN, No Apparent Distress - INFECTION CONTROL TRAVEL OUTSIDE OF THE [place] IN LAST 30 DAYS: No - HEENT HEENT: Atraumatic, Normocephalic, Pharyngeal Tenderness, Pharyngeal Erythema. negative: Pharyngeal Exudate, Tympanic Membrane Red, Tympanic Membrane Bulging Mouth Diagram: 1 - tenderness, no gingival inflammation, no abscess, no trismus - NECK Neck: Lymphadenopathy-Left, Lymphadenopathy-Right - RESPIRATORY Respiratory: Breath Sounds Normal, No Respiratory Distress, Chest Non-Tender O2 Sat by Pulse Oximetry: 100 - CARDIOVASCULAR Cardiovascular: Regular Rate, Regular Rhythm - MUSCULOSKELETAL/EXTREMETIES Musculoskeletal/Extremeties: MAEW - NEURO Level of Consciousness: Awake, Alert, Appropriate Motor/Sensory: No Motor Deficit - DERM Integumentary: Warm, Dry Course - Vital Signs Vital signs: Temp Pulse Resp BP Pulse Ox 98.5 F 87 18 119/82 100 02/06/17 17:05 02/06/17 17:05 02/06/17 17:05 02/06/17 17:05 02/06/17 17:05 Discharge - Discharge Clinical Impression: Sore throat, Toothache Condition: Stable Disposition: HOME, SELF-CARE Instructions: Acetaminophen, Use of Lhga-Lsv-Raizmas Ibuprofen ([facility]), Penicillin V K ([facility]), Sore Throat ([facility]), Toothache ([facility]), Ultram ([facility]) Additional Instructions: Return immediately for any new or worsening symptoms Followup with your primary care provider, call tomorrow to make a followup appointment Follow-up with your dentist as planned Prescriptions: Penicillin V Potassium [Penicillin Vk 500 mg Tablet] 500 mg PO BID #20 tablet Tramadol HCl [Ultram 50 mg Tablet] 50 mg PO ASDIR PRN #15 tablet PRN Reason: Referrals: [facility] [Provider Group] - Follow up as needed
== END 2017-02-06 17:39 | disposition home or self-care (01) ==
LOC: ER 17:01
DX: J02.9 Acute pharyngitis, unspecified (principal); K08.89 Other specified disorders of teeth and supporting structures; R59.9 Enlarged lymph nodes, unspecified; R50.9 Fever, unspecified
CPT/HCPCS: 99282

== ENCOUNTER 2017-05-17 06:06 | Emergency (ER) | payer OTHER ==
[2017-05-17 06:13] VITALS: BP 103/77
[2017-05-17] MEDS ORDERED: LIDOCAINE 1% INJ-PF (10 MG/ML) 30 ML SDV INJ ONE ×2 (06:57→06:58)
--- NOTE | 2017-05-17 07:06 | ER Document Report ---
ED Medical Screen (RME) - General Chief Complaint: Laceration Stated Complaint: FINGER LACERATION Time Seen by Provider: 05/17/17 06:57 TRAVEL OUTSIDE OF THE [place] IN LAST 30 DAYS: No - HPI Notes: 05/17/17 07:01 Patient is a 31-year-old female presents to the ED complaining of a finger laceration to her left proximal anterior index finger prior to arrival by a knife that was not clean per patient. Patient is not sure when her last tetanus was. Patient still able to move her finger without any difficulties. She has not had any numbness or tingling associated. Patient states that the bleeding has been well controlled. Patient states that her finger is throbbing , but is otherwise doing well. Denies any drug allergies or other significant past medical history. Denies any history of MRSA. Denies any headache, fever, neck pain, sore throat, chest pain, palpitations, syncope, cough, shortness of breath, wheeze, dyspnea, abdominal pain, nausea/vomiting/diarrhea, urinary retention, dysuria, hematuria, numbness/tingling, muscle paralysis/weakness, or rash. Patient has had nasal nida/discharge for several days, but she is not concerned about that today. 05/17/17 07:09 PHYSICAL EXAMINATION: Musculoskeletal: Left index: FROM to passive/active. Strength 5+/5. N/V intact distal. + 2cm linear superficial laceration noted. - Related Data Allergies/Adverse Reactions: No Known Allergies Allergy (Verified 05/17/17 06:09) Past Medical History - Social History Frequency of alcohol use: Social - Past Medical History Cardiac Medical History: Denies: Hx Congestive Heart Failure, Hx Heart Attack, Hx Hypertension Pulmonary Medical History: Denies: Hx Asthma, Hx Bronchitis, Hx COPD, Hx Pneumonia, Hx Tuberculosis Neurological Medical History: Denies: Hx Seizures Renal/ Medical History: Reports: Hx Kidney Stones. Denies: Hx End Stage Renal Disease, Hx Peritoneal Dialysis GI Medical History: Denies: Hx Cirrhosis, Hx Gastroesophageal Reflux Disease, Hx Ulcer Musculoskeltal Medical History: Denies Hx Arthritis, Denies Hx Multiple Sclerosis Psychiatric Medical History: Denies: Hx Bipolar Disorder, Hx Depression, Hx Schizophrenia Past Surgical History: Reports: Hx Oral Surgery, Other - Hemorrhoidectomy - Immunizations Hx Diphtheria, Pertussis, Tetanus Vaccination: No Physical Exam - Vital signs Vitals: Temp Pulse Resp BP Pulse Ox 97.6 F 91 20 103/77 100 05/17/17 06:13 05/17/17 06:13 05/17/17 06:13 05/17/17 06:13 05/17/17 06:13 Course - Vital Signs Vital signs: Temp Pulse Resp BP Pulse Ox 97.6 F 91 20 103/77 100 05/17/17 06:13 05/17/17 06:13 05/17/17 06:13 05/17/17 06:13 05/17/17 06:13
--- NOTE | 2017-05-17 08:15 | ER Document Report ---
ED Wound - General Chief Complaint: Laceration Stated Complaint: FINGER LACERATION Time Seen by Provider: 05/17/17 06:57 Mode of Arrival: Ambulatory Information source: Patient Notes: Patient is a 31-year-old female who presents to the ER today for laceration to her left hand at the base of her first finger that occurred last night she was washing dishes and accidentally cut it on a sharp brand-new knife that was in the sink that she did not see. Patient states she is up-to-date on her tetanus. Bleeding is controlled. TRAVEL OUTSIDE OF THE [place] IN LAST 30 DAYS: No - Related Data Allergies/Adverse Reactions: No Known Allergies Allergy (Verified 05/17/17 06:09) Past Medical History - General Information source: Patient - Social History Smoking Status: Unknown if Ever Smoked Frequency of alcohol use: Social Family History: Hypertension, Other - No bleeding or blood clotting disorder Patient has suicidal ideation: No Patient has homicidal ideation: No - Past Medical History Cardiac Medical History: Denies: Hx Congestive Heart Failure, Hx Heart Attack, Hx Hypertension Pulmonary Medical History: Denies: Hx Asthma, Hx Bronchitis, Hx COPD, Hx Pneumonia, Hx Tuberculosis Neurological Medical History: Denies: Hx Seizures Renal/ Medical History: Reports: Hx Kidney Stones. Denies: Hx End Stage Renal Disease, Hx Peritoneal Dialysis GI Medical History: Denies: Hx Cirrhosis, Hx Gastroesophageal Reflux Disease, Hx Ulcer Musculoskeltal Medical History: Denies Hx Arthritis, Denies Hx Multiple Sclerosis Psychiatric Medical History: Denies: Hx Bipolar Disorder, Hx Depression, Hx Schizophrenia Past Surgical History: Reports: Hx Oral Surgery, Other - Hemorrhoidectomy - Immunizations Hx Diphtheria, Pertussis, Tetanus Vaccination: No Review of Systems - Review of Systems Constitutional: No symptoms reported EENT: No symptoms reported Cardiovascular: No symptoms reported Respiratory: No symptoms reported Gastrointestinal: No symptoms reported Genitourinary: No symptoms reported Female Genitourinary: No symptoms reported Musculoskeletal: No symptoms reported Skin: See HPI Hematologic/Lymphatic: No symptoms reported Neurological/Psychological: No symptoms reported Physical Exam - Vital signs Vitals: Temp Pulse Resp BP Pulse Ox 97.6 F 91 20 103/77 100 05/17/17 06:13 05/17/17 06:13 05/17/17 06:13 05/17/17 06:13 05/17/17 06:13 - Notes Notes: PHYSICAL EXAMINATION: GENERAL: Well-appearing and in no acute distress. HEAD: Atraumatic, normocephalic. EYES: Pupils equal round and reactive to light, extraocular movements intact, sclera anicteric, conjunctiva are normal. NECK: Normal range of motion, supple without lymphadenopathy LUNGS: CTAB and equal. No wheezes rales or rhonchi. HEART: Regular rate and rhythm without murmurs EXTREMITIES: Normal range of motion, no pitting edema. No cyanosis. NEUROLOGICAL: Cranial nerves grossly intact. Normal sensory/motor exams. PSYCH: Normal mood, normal affect. SKIN: Warm, Dry, normal turgor, 2-1/2 cm laceration to the palmar surface of the left hand at the base of the index finger, no bleeding, subcutaneous tissue noted Course - Re-evaluation Re-evalutation: 05/17/17 08:13 Sutures were placed and hemostasis was achieved, patient tolerated well. I will place her on Keflex as a prophylactic antibiotic as the laceration is on her hand. - Vital Signs Vital signs: Temp Pulse Resp BP Pulse Ox 97.6 F 91 20 103/77 100 05/17/17 06:13 05/17/17 06:13 05/17/17 06:13 05/17/17 06:13 05/17/17 06:13 Procedures - Laceration/Wound Repair Left Hand Time completed: 08:00 Wound length (cm): 2.5 Wound's Depth, Shape: Superficial, Linear Laceration pre-procedure: Sterile PPE donned, Sterile drapes applied, Shur- Clens applied Anesthetic type: 1% Lidocaine Volume Anesthetic (mLs): 3 Wound explored: Clean Irrigated w/ Saline (mLs): 30 Wound Repaired With: Sutures Suture Size/Type: 5:0, Nylon Number of Sutures: 5 Post-procedure wound care: Sterile dressing applied Post-procedure NV exam normal: Yes Complications: No Discharge - Discharge Clinical Impression: Laceration of left hand Qualifiers: Encounter type: initial encounter Foreign body presence: without foreign body Qualified Code(s): S61.412A - Laceration without foreign body of left hand, initial encounter Condition: Stable Disposition: HOME, SELF-CARE Instructions: Prophylactic Antibiotic ([facility]), Soap Cleansing ([facility]), Laceration Care ([facility]) Additional Instructions: Return immediately for any new or worsening symptoms. Follow up with primary care provider, call tomorrow to make followup appointment. Please be seen in 7 days to have sutures removed. Prescriptions: Cephalexin Monohydrate [Keflex 500 mg Capsule] 500 mg PO BID 5 Days #10 capsule Referrals: NUNU MISTRY, CASTILLO-C [Primary Care Provider] - Follow up as needed
== END 2017-05-17 08:38 | disposition home or self-care (01) ==
LOC: ER 06:06
DX: S61.412A Laceration without foreign body of left hand, initial encounter (principal); W26.0XXA Contact with knife, initial encounter; Y93.G1 Activity, food preparation and clean up
CPT/HCPCS: 12001; 99282; J3490

== ENCOUNTER → 2018-03-31 | Outpatient (CLI) | payer OTHER ==
--- NOTE | 2018-03-31 14:30 | WOMENS IMAGING REPORT ---
EXAM DESCRIPTION: TRANSVAGINAL ULTRASOUND COMPLETED DATE/TIME: 03/31/2018 2:05 pm REASON FOR STUDY: TRANSVAGINAL U/S/ R10.2 R10.2 PELVIC AND PERINEAL PAIN COMPARISON: None. TECHNIQUE: Dynamic and static grayscale images acquired of the pelvis via transvaginal approach and recorded on PACS. Additional selected color Doppler and spectral images recorded. LIMITATIONS: None. FINDINGS: UTERUS: Contour normal. No mass. ENDOMETRIAL STRIPE: No focal or generalized thickening. No masses. CERVIX: Not measured. RIGHT OVARY AND DOPPLER: Normal size. No worrisome masses. Normal arterial vascular flow without evid ence for torsion. LEFT OVARY AND DOPPLER: Normal size. No worrisome masses. Normal arterial vascular flow without evide nce for torsion. FREE FLUID: None noted. OTHER: No other significant finding. MEASUREMENTS: UTERUS: 8.1 x 3 x 5 cm. ENDOMETRIAL STRIPE: 3 mm. RIGHT OVARY: 3.2 x 2.1 x 2.4 cm. LEFT OVARY: 3.5 x 2.1 x 2.6 cm. IMPRESSION: NORMAL TRANSVAGINAL PELVIC ULTRASOUND. TECHNICAL DOCUMENTATION: JOB ID: [id number] [employer]- All Rights Reserved Rev-10/01 Reading location - IP/workstation name: [email or web address]
== END ==
LOC: WI 13:24
PROVIDERS: ATTEND Nurse Practitioner Family
DX: R10.2 Pelvic and perineal pain (principal)
CPT/HCPCS: 76830

== ENCOUNTER → 2018-04-04 | Outpatient (CLI) | payer OTHER ==
--- NOTE | 2018-04-04 15:07 | WOMENS IMAGING REPORT ---
EXAM DESCRIPTION: RETROPERITONEAL U/S COMPLETED DATE/TIME: 04/04/2018 2:13 pm REASON FOR STUDY: ELEVATED LIVER ENZYMES R74.8 ABNORMAL LEVELS OF OTHER SERUM ENZYMES COMPARISON: None. TECHNIQUE: Dynamic and static grayscale images acquired of the kidneys and bladder and recorded on P ACS. Additional selected color Doppler and spectral images recorded. LIMITATIONS: None. FINDINGS: RIGHT KIDNEY: Normal size. Normal echogenicity. No solid or suspicious masses. No h ydronephrosis. No calcifications. LEFT KIDNEY: Normal size. Normal echogenicity. No solid or suspicious masses. No hydronephrosi s. No calcifications. BLADDER: No masses. OTHER FINDINGS: Increased echogenicity of the liver parenchyma consistent with diffuse fatty infiltra tion. No other significant finding. IMPRESSION: NORMAL RENAL AND BLADDER ULTRASOUND. FATTY INFILTRATION OF THE LIVER. TECHNICAL DOCUMENTATION: JOB ID: [id number] [employer]- All Rights Reserved Reading location - IP/workstation name: [email or web address]
== END ==
LOC: WI 13:30
PROVIDERS: ATTEND Nurse Practitioner Family
DX: K76.0 Fatty (change of) liver, not elsewhere classified (principal); R74.8 Abnormal levels of other serum enzymes
CPT/HCPCS: 76770

== ENCOUNTER 2018-05-23 17:09 | Inpatient (IN) | payer OTHER ==
[2018-05-23] MEDS ORDERED: NORMAL SALINE 1000 ML 1,000 ML IV ONE ×2 (17:34→23:51)
--- NOTE | 2018-05-23 17:38 | ER Document Report ---
ED Medical Screen (RME) - General Chief Complaint: Weakness Stated Complaint: WEAKNESS Time Seen by Provider: 05/23/18 17:33 Notes: 32-year-old female here with complaints of several syncopal episodes over the past 24 hours. Yesterday, she passed out and hit her head therefore sustaining a laceration. She has continued to be lightheaded, especially with standing, and this morning passed out several times. She has a history of hemochromatosis and her last phlebotomy session was 1 week ago. Her rn training told her to come here to be evaluated. She also reports significant weight loss over the past 6 months and she has an abdominal CT scheduled to evaluate for cancer. She denies any pain other than her head where she had some head trauma. She has been drinking plenty of fluids and per her usual consumption status. EXAM CTAB Tachycardic, regular rhythm 1 cm superficial laceration to the right periorbital region Small soft tissue swelling to left mid forehead Moderate epigastric TTP TRAVEL OUTSIDE OF THE [place] IN LAST 30 DAYS: No - Related Data Allergies/Adverse Reactions: No Known Allergies Allergy (Verified 05/17/17 06:09) Past Medical History - Social History Chew tobacco use (# tins/day): No Frequency of alcohol use: Occasional Drug Abuse: None - Past Medical History Cardiac Medical History: Denies: Hx Congestive Heart Failure, Hx Heart Attack, Hx Hypertension Pulmonary Medical History: Denies: Hx Asthma, Hx Bronchitis, Hx COPD, Hx Pneumonia, Hx Tuberculosis Neurological Medical History: Denies: Hx Seizures Renal/ Medical History: Reports: Hx Kidney Stones. Denies: Hx End Stage Renal Disease, Hx Peritoneal Dialysis GI Medical History: Denies: Hx Cirrhosis, Hx Gastroesophageal Reflux Disease, Hx Ulcer Musculoskeltal Medical History: Denies Hx Arthritis, Denies Hx Multiple Sclerosis Psychiatric Medical History: Denies: Hx Bipolar Disorder, Hx Depression, Hx Schizophrenia Past Surgical History: Reports: Hx Oral Surgery, Other - Hemorrhoidectomy - Immunizations Hx Diphtheria, Pertussis, Tetanus Vaccination: No Physical Exam - Vital signs Vitals: Temp Pulse Resp BP Pulse Ox 98.7 F 91 15 104/75 100 05/23/18 17:19 05/23/18 17:19 05/23/18 17:19 05/23/18 17:19 05/23/18 17:19 Course - Vital Signs Vital signs: Temp Pulse Resp BP Pulse Ox 98.7 F 91 15 104/75 100 05/23/18 17:19 05/23/18 17:19 05/23/18 17:19 05/23/18 17:19 05/23/18 17:19 Doctor's Discharge - Discharge Referrals: DARRION BERRIOS, [facility] [Primary Care Provider] - Follow up as needed
[2018-05-23 18:13] LABS: ABSOLUTE LYMPHOCYTES (AUTO) 1.5 10^3/uL (0.5-4.7); ABSOLUTE MONOCYTES (AUTO) 0.3 10^3/uL (0.1-1.4); ABSOLUTE NEUT (AUTO) 0.8 10^3/uL (1.7-8.2); BASOPHILS % (AUTO) 1.1 % (0-2); EOSINOPHILS % (AUTO) 1.6 % (0-6); HEMATOCRIT 38.9 % (36.0-47.0); HEMOGLOBIN 13.4 g/dL (12.0-15.5); LYMPHOCYTES % (AUTO) 57.6 % (13-45); MEAN CORPUSCULAR HEMOGLOBIN 34.6 pg (27.0-33.4); MEAN CORPUSCULAR HGB CONC 34.4 g/dL (32.0-36.0); MEAN CORPUSCULAR VOLUME 101 fl (80-97); MONOCYTES % (AUTO) 10.2 % (3-13); PLATELET COUNT 244 10^3/uL (150-450); RED BLOOD COUNT 3.87 10^6/uL (3.72-5.28); RED CELL DISTRIBUTION WIDTH 14.7 % (11.5-14.0); SEGMENTED NEUTROPHILS % (AUTO) 29.5 % (42-78); TOTAL CELLS COUNTED % (AUTO) 100 %; WHITE BLOOD COUNT 2.6 10^3/uL (4.0-10.5)
[2018-05-23 18:36] LABS: ALANINE AMINOTRANSFERASE 51 U/L (9-52); ALKALINE PHOSPHATASE 109 U/L (38-126); ANION GAP 7 (5-19); ASPARTATE AMINO TRANSFERASE 177 U/L (14-36); BILIRUBIN,DIRECT 0.5 mg/dL (0.0-0.4); BILIRUBIN,TOTAL 0.8 mg/dL (0.2-1.3); BLOOD UREA NITROGEN 5 mg/dL (7-20); CALCIUM 9.1 mg/dL (8.4-10.2); CARBON DIOXIDE 38 mmol/L (22-30); CHLORIDE 96 mmol/L (98-107); GLUCOSE 116 mg/dL (75-110); LIPASE 85.2 U/L (23-300); SODIUM 141.2 mmol/L (137-145); TOTAL PROTEIN 7.3 g/dL (6.3-8.2)
[2018-05-23 18:41] LABS: POTASSIUM 2.9 mmol/L (3.6-5.0)
--- NOTE | 2018-05-23 18:42 | RADIOLOGY REPORT (SQ) ---
EXAM DESCRIPTION: CHEST 2 VIEWS COMPLETED DATE/TIME: 05/23/2018 6:33 pm REASON FOR STUDY: syncope COMPARISON: None. TECHNIQUE: Frontal and lateral radiographic views of the chest acquired. NUMBER OF VIEWS: Two view. LIMITATIONS: None. FINDINGS: LUNGS AND PLEURA: No opacities, masses or pneumothorax. No pleural effusion. MEDIASTINUM AND HILAR STRUCTURES: No masses or contour abnormalities. HEART AND VASCULAR STRUCTURES: Heart normal size. No evidence for failure. BONES: No acute findings. HARDWARE: None in the chest. OTHER: No other significant finding. IMPRESSION: NO SIGNIFICANT RADIOGRAPHIC FINDING IN THE CHEST. TECHNICAL DOCUMENTATION: JOB ID: [id number] [employer]- All Rights Reserved Reading location - IP/workstation name: [email or web address]
[2018-05-23] MEDS ORDERED: RINGERS SOLUTION,LACTATED 1,000 ML IV ONE (19:06)
--- NOTE | 2018-05-23 19:09 | RADIOLOGY REPORT (SQ) ---
EXAM DESCRIPTION: CT HEAD WITHOUT COMPLETED DATE/TIME: 05/23/2018 7:01 pm REASON FOR STUDY: syncope, head trauma COMPARISON: None. TECHNIQUE: Axial images acquired through the brain without intravenous contrast. Images reviewed wi th bone, brain and subdural windows. Additional sagittal and coronal reconstructions were generated. Images stored on PACS. All CT scanners at this facility use dose modulation, iterative reconstruction, and/or weight based d osing when appropriate to reduce radiation dose to as low as reasonably achievable (ALARA). [facility]: Dose Right [facility]: CareDose [facility]: Dose Right [facility]: Teradose 4D [facility]: Smart Reelio RADIATION DOSE: CT Rad equipment meets quality standard of care and radiation dose reduction techniq ues were employed. CTDIvol: 53.2 mGy. DLP: 1044 mGy-cm. mGy. LIMITATIONS: None. FINDINGS: VENTRICLES: Normal size and contour. CEREBRUM: No masses. No hemorrhage. No midline shift. No evidence for acute infarction. Normal gra y/white matter differentiation. No areas of low density in the white matter. CEREBELLUM: No masses. No hemorrhage. No alteration of density. No evidence for acute infarction. EXTRAAXIAL SPACES: No fluid collections. No masses. ORBITS AND GLOBE: No intra- or extraconal masses. Normal contour of globe without masses. CALVARIUM: No fracture. PARANASAL SINUSES: No fluid or mucosal thickening. SOFT TISSUES: No mass or hematoma. OTHER: No other significant finding. IMPRESSION: NORMAL BRAIN CT WITHOUT CONTRAST. EVIDENCE OF ACUTE STROKE: NO. COMMENT: Quality ID # [id number]: Final reports with documentation of one or more dose reduction techniques (e.g., Automated exposure control, adjustment of the mA and/or kV according to patient size, use of iterative reconstruction technique) TECHNICAL DOCUMENTATION: JOB ID: [id number] [employer] All Rights Reserved Reading location - IP/workstation name: [email or web address]
--- NOTE | 2018-05-23 19:23 | RADIOLOGY REPORT (SQ) ---
EXAM DESCRIPTION: CT ABD/PELVIS WITH IV ONLY COMPLETED DATE/TIME: 05/23/2018 7:04 pm REASON FOR STUDY: syncope, sig weight loss; cancer? COMPARISON: None. TECHNIQUE: CT scan of the abdomen and pelvis performed using helical scanning technique with dynamic intravenous contrast injection. No oral contrast. Images reviewed with lung, soft tissue, and bone windows. Reconstructed coronal and sagittal MPR images reviewed. Delayed images for evaluation of the urinary system also acquired. All images stored on PACS. All CT scanners at this facility use dose modulation, iterative reconstruction, and/or weight based d osing when appropriate to reduce radiation dose to as low as reasonably achievable (ALARA). [facility]: Dose Right [facility]: CareDose [facility]: Dose Right [facility]: Teradose 4D [facility]: Deenty CONTRAST TYPE AND DOSE: contrast/concentration: Isovue 350.00 mg/ml; Total Contrast Delivered: 47.0 ml; Total Saline Delivered: 65.0 ml RENAL FUNCTION: BUN 5 creatinine 0.64 RADIATION DOSE: CT Rad equipment meets quality standard of care and radiation dose reduction techniq ues were employed. CTDIvol: 9.6 - 14.4 mGy. DLP: 1292 mGy-cm.. LIMITATIONS: None. FINDINGS: LOWER CHEST: No significant findings. No nodules or infiltrates. LIVER: The liver is uniformly low in attenuation. SPLEEN: Normal size. No focal lesions. PANCREAS: No masses. No significant calcifications. No adjacent inflammation or peripancreatic fluid collections. Pancreatic duct not dilated. GALLBLADDER: No identified stones by CT criteria. No inflammatory changes to suggest cholecystitis. ADRENAL GLANDS: No significant masses or asymmetry. RIGHT KIDNEY AND URETER: No solid masses. No significant calcifications. No hydronephrosis or hyd roureter. LEFT KIDNEY AND URETER: No solid masses. No significant calcifications. No hydronephrosis or hydr oureter. AORTA AND VESSELS: No aneurysm. No dissection. Renal arteries, SMA, celiac without stenosis. RETROPERITONEUM: No retroperitoneal adenopathy, hemorrhage or masses. BOWEL AND PERITONEAL CAVITY: No masses or inflammatory changes. No free fluid or peritoneal masses. APPENDIX: Not identified. PELVIS: No mass. No free fluid. Normal bladder. ABDOMINAL WALL: No masses. No hernias. BONES: No significant or acute findings. OTHER: No other significant finding. IMPRESSION: Low-attenuation liver: Fatty infiltration. Amyloid infiltration. Hepatocellular disea se. TECHNICAL DOCUMENTATION: JOB ID: [id number] Quality ID # [id number]: Final reports with documentation of one or more dose reduction techniques (e.g., Au tomated exposure control, adjustment of the mA and/or kV according to patient size, use of iterative reconstruction technique) 2010 [employer]- All Rights Reserved Reading location - IP/workstation name: [email or web address]
[2018-05-23] MEDS ORDERED: MECLIZINE HCL 25 MG TABLET PO ONE (19:26)
--- NOTE | 2018-05-23 19:31 | ER Document Report ---
ED General - General Chief Complaint: Weakness Stated Complaint: WEAKNESS Time Seen by Provider: 05/23/18 17:33 Mode of Arrival: Ambulatory Information source: Patient, Office, [facility] Records Notes: 32-year-old female with hemochromatosis presents with complaint of dizziness and a one episode of syncope. Patient states that she has been experiencing dizziness (lightheaded) for approximately 3 months. She states yesterday she stood up from the couch yesterday and fell forward. She states she did have a loss of consciousness. Patient states that again today when she stood up quickly she became dizzy and had a near syncopal episode. Patient admits to recent weight loss. She is undergoing care with Dr. Jeff who is a professor of political science. Patient did sustain a laceration to her right eyebrow yesterday. Patient currently denying dizziness, headache, chest pain, shortness of breath. Patient denies any black or bloody stool, recent illness. Patient reports chronically low wbc. She states she was misdiagnosed with anemia until recently when they diagnosed hemochromatosis. TRAVEL OUTSIDE OF THE [place] IN LAST 30 DAYS: No - HPI Onset: Other Onset/Duration: Sudden, Gone Severity: None Associated symptoms: Weakness. denies: Chest pain, Earache, Headache, Nausea, Vomiting, Shortness of breath Exacerbated by: Standing Relieved by: Sitting Similar symptoms previously: Yes Recently seen / treated by doctor: Yes - Related Data Allergies/Adverse Reactions: No Known Allergies Allergy (Verified 05/17/17 06:09) Past Medical History - General Information source: Patient, [facility] Records - Social History Smoking Status: Never Smoker Chew tobacco use (# tins/day): No Frequency of alcohol use: Occasional Drug Abuse: None Lives with: Family Family History: Hypertension, Other Patient has suicidal ideation: No Patient has homicidal ideation: No - Past Medical History Cardiac Medical History: Denies: Hx Congestive Heart Failure, Hx Heart Attack, Hx Hypertension Pulmonary Medical History: Denies: Hx Asthma, Hx Bronchitis, Hx COPD, Hx Pneumonia, Hx Tuberculosis Neurological Medical History: Denies: Hx Seizures Renal/ Medical History: Reports: Hx Kidney Stones. Denies: Hx End Stage Renal Disease, Hx Peritoneal Dialysis GI Medical History: Denies: Hx Cirrhosis, Hx Gastroesophageal Reflux Disease, Hx Ulcer Musculoskeletal Medical History: Denies Hx Arthritis, Denies Hx Multiple Sclerosis Psychiatric Medical History: Denies: Hx Bipolar Disorder, Hx Depression, Hx Schizophrenia Past Surgical History: Reports: Hx Oral Surgery, Other - Hemorrhoidectomy - Immunizations Hx Diphtheria, Pertussis, Tetanus Vaccination: No Review of Systems - Review of Systems Notes: REVIEW OF SYSTEMS: CONSTITUTIONAL : Denies fever, chills, or sweats. Denies recent illness. Denies recent hospitalizations. EENT: Denies visual changes, eye pain. Denies sore throat, oral lesions, difficulty swallowing. CARDIOVASCULAR: Denies chest pain. Denies palpitations. Denies lower extremity edema. RESPIRATORY: Denies cough. Denies shortness of breath, wheezing. GASTROINTESTINAL: Denies abdominal pain or distention. Denies nausea, vomiting, or diarrhea. Denies blood in vomitus, stools, or per rectum. Denies black, tarry stools. Denies constipation. GENITOURINARY: Denies difficulty urinating, painful urination, frequency, blood in urine, or vaginal discharge. MUSCULOSKELETAL: Denies back or neck pain or stiffness. Denies joint pain or swelling. SKIN: Denies rash, lesions or sores. HEMATOLOGIC : Denies easy bruising or bleeding. LYMPHATIC: Denies swollen glands. NEUROLOGICAL: Denies confusion or altered mental status. Denies loss of consciousness. Denies headache. Denies weakness or paralysis. Denies problems difficulty with ambulation, slurred speech. Denies sensory loss, numbness, or tingling. Denies seizures. PSYCHIATRIC: Denies anxiety or stress. Denies depression, suicidal ideation, or homicidal ideation. Denies visual or auditory hallucinations. Physical Exam - Vital signs Vitals: Temp Pulse Resp BP Pulse Ox 98.7 F 91 15 104/75 100 05/23/18 17:19 05/23/18 17:19 05/23/18 17:19 05/23/18 17:19 05/23/18 17:19 Interpretation: No: Hypotensive, Tachycardic, Hypoxic, Febrile - Notes Notes: PHYSICAL EXAMINATION: GENERAL: Thin, frail, underweight. HEAD: Small superficial linear laceration approximately 1 cm over the right eyebrow without active bleeding, good approximation of skin. EYES: Pupils equal round and reactive to light, extraocular movements intact, conjunctiva are normal. ENT: Nares patent, oropharynx clear without exudates. Moist mucous membranes. NECK: Normal range of motion, supple without lymphadenopathy LUNGS: Breath sounds clear to auscultation bilaterally and equal. No wheezes rales or rhonchi. HEART: Regular rate and rhythm without murmurs ABDOMEN: Soft, nontender, nondistended abdomen. No guarding, no rebound. No masses appreciated. Female : deferred Musculoskeletal: Normal range of motion, no pitting or edema. No cyanosis. NEUROLOGICAL: Cranial nerves grossly intact. Normal speech, normal gait. Normal sensory, motor exams PSYCH: Normal mood, normal affect. SKIN: Warm, Dry, normal turgor, no rashes or lesions noted. Course - Re-evaluation Re-evalutation: Temp Pulse Resp BP Pulse Ox 98.7 F 82 15 106/77 100 05/23/18 17:19 05/23/18 19:29 05/23/18 17:19 05/23/18 19:29 05/23/18 17:19 32-year-old female with hemochromatosis presents with complaints of several months of dizziness and a syncopal episode yesterday after standing up too quickly. Patient states that again today she stood up quickly to answer the door and got dizzy but did not pass out. Patient asymptomatic upon exam. Vital signs within normal limits. She is orthostatic negative. Denies any black or bloody stools, new medications. Significant lab findings include a potassium of 2.9. She is currently undergoing care with hematology for hemochromatosis and was advised by her professor of political science to the present to the emergency department. Patient denies any recent illness, nausea, vomiting, chest pain, shortness of breath, palpitations. Patient is 32 years old and only weighs 80 pounds. She is very than, appears malnourished. She states that she is a "model". Unclear whether patient's low potassium, dizziness may be secondary to malnutrition. No evidence of bulimia as far as the appearance of her teeth. Patient has been reevaluated multiple times and is sleeping. Denies any dizziness. Potassium/magnesium will be replenished. IV fluids initiated. Patient's laceration is not gaping, has good approximation and I do not feel that better cosmesis would be obtained if I suture it now. EKG was obtained and showed the patient to be in sinus rhythm at a rate of 76 but she does have a prolonged QTC of 500. Will repeat EKG after potassium replenishment. Patient signed out to Dr. Bell with BMP and EKG pending after potassium and magnesium replenishment. Patient is resting comfortably. If QTC improves, potassium improved and patient is asymptomatic I feel like this patient can be discharged home with follow-up with her primary care physician and professor of political science. 05/23/18 19:33 05/24/18 00:01 05/24/18 02:29 05/24/18 02:32 - Vital Signs Vital signs: Temp Pulse Resp BP Pulse Ox 98.7 F 82 12 97/66 L 97 05/23/18 17:19 05/23/18 19:29 05/24/18 02:00 05/24/18 02:00 05/24/18 02:00 - Laboratory Result Diagrams: 05/23/18 17:38 05/24/18 01:20 Laboratory results interpreted by me: 05/23/18 05/23/18 05/23/18 17:38 17:38 23:00 WBC 2.6 L MCV 101 H MCH 34.6 H RDW 14.7 H Seg Neutrophils % 29.5 L Lymphocytes % 57.6 H Absolute Neutrophils 0.8 L Sodium Potassium 2.9 L* 2.9 L* Chloride 96 L Carbon Dioxide 38 H BUN 5 L 5 L Glucose 116 H 73 L Calcium 7.3 L Magnesium Direct Bilirubin 0.5 H AST 177 H 05/24/18 01:20 WBC MCV MCH RDW Seg Neutrophils % Lymphocytes % Absolute Neutrophils Sodium 136.6 L Potassium 3.0 L* Chloride 108 H Carbon Dioxide BUN 5 L Glucose Calcium 6.7 L* Magnesium 2.7 H Direct Bilirubin AST - EKG Interpretation by Ct EKG shows normal: Sinus rhythm Rate: Normal When compared to previous EKG there are: Other - Prolonged QTC-500 Discharge - Discharge Clinical Impression: Hypokalemia, Dizziness, Syncope and collapse, Underweight Laceration of left eyebrow Qualifiers: Encounter type: initial encounter Qualified Code(s): S01.112A - Laceration without foreign body of left eyelid and periocular area, initial encounter Condition: Good Instructions: Antibiotic Ointment Protection ([facility]), Dizziness ([facility]), Facial Laceration ([facility]), Hypokalemia ([facility]) Referrals: DARRION BERRIOS FNP-C [Primary Care Provider] - Follow up as needed
--- NOTE | 2018-05-23 20:39 | EKG REPORT ---
SEVERITY:- ABNORMAL ECG - SINUS RHYTHM BORDERLINE T ABNORMALITIES, ANTERIOR LEADS PROLONGED QT INTERVAL : Confirmed by: Will Koehler MD 23-May-2018 20:38:50
[2018-05-23] MEDS: POTASSI CL 20 MEQ/50 ML RIDER 20 MEQ/50 ML RTUPB IV SCH ×2 (20:52→23:06)
[2018-05-23 23:38] LABS: ANION GAP 5 (5-19); BLOOD UREA NITROGEN 5 mg/dL (7-20); CALCIUM 7.3 mg/dL (8.4-10.2); CHLORIDE 106 mmol/L (98-107); GLUCOSE 73 mg/dL (75-110); SODIUM 137.9 mmol/L (137-145)
[2018-05-23 23:41] LABS: POTASSIUM 2.9 mmol/L (3.6-5.0)
[2018-05-23] MEDS ORDERED: POTASSIUM CHLORIDE 10 MEQ CAPSULE.ER PO ONE (23:52)
[2018-05-24] MEDS: MAGNESIUM SULFATE/D5W 1 GM/100 ML RTUPB IV SCH ×2 (00:10→00:41)
[2018-05-24 00:20] LABS: CARBON DIOXIDE 27 mmol/L (22-30)
--- NOTE | 2018-05-24 01:31 | ER Document Report ---
Doctor's Note Notes: 05/24/18 01:31 EKG: Ventricular rate 80, MN interval 200, QRS duration 92, QTc 513, sinus rhythm, prolonged QT interval. 05/24/18 03:14 Repeat EKG: Ventricular rate 79, QRS duration 90, QTc 473, normal sinus rhythm. No ST segment elevation or depression. Patient continues to feel lightheaded despite fluids and potassium replacement. QT interval is improving. I discussed the results with the patient. She's concerned about discharge home as she continues to have syncopal episodes. I contacted Dr. Jeff, patient's manager exchange. She does not feel the syncope is related to her hemochromatosis but does recommend admission for further workup as the patient has fallen multiple times in the last few days and continues to feel lightheaded. I spoke with Dr. Harris. He's agreeable with admission.
[2018-05-24 01:43] LABS: ANION GAP 6 (5-19); BLOOD UREA NITROGEN 5 mg/dL (7-20); CARBON DIOXIDE 23 mmol/L (22-30); CHLORIDE 108 mmol/L (98-107); GLUCOSE 90 mg/dL (75-110); SODIUM 136.6 mmol/L (137-145)
[2018-05-24 01:56] LABS: CALCIUM 6.7 mg/dL (8.4-10.2)
[2018-05-24] MEDS ORDERED: CALCIUM GLUCONATE 2,222 MG in DEXTROSE 5%-WATER 100 ML IV ONE (03:27)
[2018-05-24] MEDS ORDERED: CALCIUM GLUCONATE 1000 MG/10 ML INJ IV PRN (03:29)
[2018-05-24 04:24] LABS: IRON(TIBC) 65.4 ug/dL (37-170)
[2018-05-24 04:28] LABS: ABSOLUTE RETICS # 0.048 10^6/uL (0.028-0.122); RETICULOCYTE COUNT (AUTO) 1.62 % (0.66-2.85)
--- NOTE | 2018-05-24 04:29 | PDOC H&P ---
History of Present Illness Admission Date/PCP: 05/24/18 03:33 PROMISE CARDENAS Patient complains of: Lightheadedness and collapse History of Present Illness: ANNE MARIE DRUMMOND is a 32 year old female with a past medical history of hemochromatosis requiring phlebotomy presents with lightheadedness and episode of passing out. Lately upon standing she is felt lightheaded and dizzy upon standing and yesterday actually fell forward striking her right eyebrow. Her symptoms have persisted with activity prompting her to seek evaluation in the emergency room. She is found to have hypotension with a systolic blood pressure in the 80s, orthostatic hypotension, hypokalemia and hypocalcemia. She is received electrolyte repletion and referred to the hospitalist for admission for persistent hypotension. Patient admits similar symptoms for approximately 3 mo nths but increasing in severity and duration. She denies chest pain, palpitations, shortness of breath, nausea or vomiting. She denies headache, neck stiffness blurred vision fever, chills, heat or cold intolerance or focal pain. No recent menstrual cycle secondary to subcut depot control. She does admit to fatigue, weight gain, difficulty concentrating and constipation. Past Medical History Cardiac Medical History: Denies: Congestive Heart Failure, Myocardial Infarction, Hypertension Pulmonary Medical History: Denies: Asthma, Bronchitis, Chronic Obstructive Pulmonary Disease (COPD), Pneumonia, Tuberculosis Neurological Medical History: Denies: Seizures Renal/ Medical History: Denies: End Stage Renal Disease GI Medical History: Denies: Cirrhosis, Gastroesophageal Reflux Disease Musculoskeltal Medical History: Denies: Arthritis Psychiatric Medical History: Denies: Bipolar Disorder, Depression Hematology: Reports: Anemia, Bleeding Tendencies, Other - Hemochromatosis Past Surgical History Past Surgical History: Reports: Other - Hemorrhoidectomy, breast augmentation Social History Information Source: Patient, [facility] Records Lives with: Family Smoking Status: Never Smoker Frequency of Alcohol Use: Occasional Drugs: None Hx Prescription Drug Abuse: No - Advance Directive Resuscitation Status: Full Code Family History Family History: Hypertension Parental Family History Reviewed: Yes Children Family History Reviewed: Yes Sibling(s) Family History Reviewed.: Yes Medication/Allergy Home Medications: Diphenhydramine HCl [Benadryl 25 mg Capsule] 25 mg PO HSP PRN 10/07/16 Vit Calc,Iron,Folic [ Vitamins] 1 tab PO DAILY 10/07/16 Docusate Sodium [Colace 100 mg Capsule] 100 mg PO BID #60 capsule 10/08/16 Hydrocortisone Acetate [Anusol Hc 25 mg Supp.rect] 1 supp.rect [place] BID #14 supp.rect 10/08/16 Ondansetron [Zofran Odt 4 mg Tablet] 1 - 2 tab PO Q4HP PRN #10 tab.rapdis 10/08/16 Ondansetron [Zofran Odt 4 mg Tablet] 1 tab PO Q4H PRN #15 tab.rapdis 12/18/16 Tramadol HCl [Ultram 50 mg Tablet] 50 mg PO Q6HP PRN #20 tablet 12/18/16 Penicillin V Potassium [Penicillin Vk 500 mg Tablet] 500 mg PO BID #20 tablet 02/06/17 Tramadol HCl [Ultram 50 mg Tablet] 50 mg PO ASDIR PRN #15 tablet 02/06/17 Cephalexin Monohydrate [Keflex 500 mg Capsule] 500 mg PO BID 5 Days #10 capsule 05/17/17 Allergies/Adverse Reactions: No Known Allergies Allergy (Verified 05/17/17 06:09) Review of Systems Constitutional: PRESENT: as per HPI, fatigue, weakness, weight gain. ABSENT: anorexia, chills, fever(s), headache(s), night sweats Eyes: ABSENT: visual disturbances Ears: ABSENT: hearing changes Cardiovascular: PRESENT: as per HPI. ABSENT: chest pain, edema, orthropnea, palpitations Respiratory: ABSENT: cough, hemoptysis Gastrointestinal: PRESENT: as per HPI, constipation. ABSENT: abdominal pain, bloating, coffee ground emesis, diarrhea, nausea, vomiting Genitourinary: ABSENT: dysuria, hematuria Musculoskeletal: ABSENT: joint swelling Integumentary: ABSENT: rash, wounds Neurological: ABSENT: abnormal gait, abnormal speech, confusion, dizziness, focal weakness, syncope Psychiatric: ABSENT: anxiety, depression, homidical ideation, suicidal ideation Endocrine: PRESENT: as per HPI, cold intolerance, menstrual abnormalities. ABSENT: polydipsia, polyphagia, polyuria Hematologic/Lymphatic: ABSENT: easy bleeding, easy bruising Physical Exam Vital Signs: Temp Pulse Resp BP Pulse Ox 98.7 F 82 12 97/66 L 97 05/23/18 17:19 05/23/18 19:29 05/24/18 02:00 05/24/18 02:00 05/24/18 02:00 Intake & Output 05/22/18 05/23/18 05/24/18 11:59 11:59 11:59 Intake Total 3300 Balance 3300 Weight 41.1 kg General appearance: PRESENT: cooperative, mild distress, well-developed, well- nourished Head exam: PRESENT: normocephalic, other - 1 cm laceration to the right brow without surrounding erythema or discharge Eye exam: PRESENT: conjunctiva pink, EOMI, PERRLA. ABSENT: scleral icterus Ear exam: PRESENT: normal external ear exam Mouth exam: PRESENT: moist, tongue midline Neck exam: ABSENT: carotid bruit, JVD, lymphadenopathy, thyromegaly Respiratory exam: PRESENT: clear to auscultation cielo. ABSENT: rales, rhonchi, wheezes Cardiovascular exam: PRESENT: RRR. ABSENT: diastolic murmur, rubs, systolic murmur Pulses: PRESENT: normal dorsalis pedis pul Vascular exam: PRESENT: normal capillary refill GI/Abdominal exam: PRESENT: normal bowel sounds, soft. ABSENT: distended, gu arding, mass, organolmegaly, rebound, tenderness Rectal exam: PRESENT: deferred Extremities exam: PRESENT: full ROM. ABSENT: calf tenderness, clubbing, pedal edema Neurological exam: PRESENT: alert, awake, oriented to person, oriented to place, oriented to time, oriented to situation, CN II-XII grossly intact. ABSENT: mot or sensory deficit Psychiatric exam: PRESENT: appropriate affect, normal mood. ABSENT: homicidal ideation, suicidal ideation Skin exam: PRESENT: dry, intact, warm. ABSENT: cyanosis, rash Results Laboratory Results: 05/23/18 17:38 05/24/18 01:20 05/23/18 05/23/18 05/23/18 17:38 17:38 23:00 WBC 2.6 L RBC 3.87 Hgb 13.4 Hct 38.9 MCV 101 H MCH 34.6 H MCHC 34.4 RDW 14.7 H Plt Count 244 Seg Neutrophils % 29.5 L Lymphocytes % 57.6 H Monocytes % 10.2 Eosinophils % 1.6 Basophils % 1.1 Absolute Neutrophils 0.8 L Absolute Lymphocytes 1.5 Absolute Monocytes 0.3 Absolute Eosinophils 0.0 Absolute Basophils 0.0 Sodium 141.2 137.9 Potassium 2.9 L* 2.9 L* Chloride 96 L 106 Carbon Dioxide 38 H 27 D Anion Gap 7 5 BUN 5 L 5 L Creatinine 0.64 0.55 Est GFR ( Amer) > 60 > 60 Est GFR (Non-Af Amer) > 60 > 60 Glucose 116 H 73 L Calcium 9.1 7.3 L Magnesium 2.0 Total Bilirubin 0.8 AST 177 H ALT 51 Alkaline Phosphatase 109 Total Protein 7.3 Albumin 4.0 Lipase 85.2 05/24/18 01:20 WBC RBC Hgb Hct MCV MCH MCHC RDW Plt Count Seg Neutrophils % Lymphocytes % Monocytes % Eosinophils % Basophils % Absolute Neutrophils Absolute Lymphocytes Absolute Monocytes Absolute Eosinophils Absolute Basophils Sodium 136.6 L Potassium 3.0 L* Chloride 108 H Carbon Dioxide 23 Anion Gap 6 BUN 5 L Creatinine 0.53 Est GFR ( Amer) > 60 Est GFR (Non-Af Amer) > 60 Glucose 90 Calcium 6.7 L* Magnesium 2.7 H Total Bilirubin AST ALT Alkaline Phosphatase Total Protein Albumin Lipase Impressions: Abdomen/Pelvis CT 05/23/18 17:33 IMPRESSION: Low-attenuation liver: Fatty infiltration. Amyloid infiltration. Hepatocellular disease. Chest X-Ray 05/23/18 17:33 IMPRESSION: NO SIGNIFICANT RADIOGRAPHIC FINDING IN THE CHEST. Head CT 05/23/18 17:33 IMPRESSION: NORMAL BRAIN CT WITHOUT CONTRAST. EVIDENCE OF ACUTE STROKE: NO. Assessment & Plan - Diagnosis (1) Hemochromatosis Qualifiers: Hemochromatosis type: unspecified Qualified Code(s): E83.119 - Hemochromatosis, unspecified Is this a current diagnosis for this admission?: Yes Plan: Follow-up screening of hypo-thyroidism, hypogonadism, diabetes, BNP. Annual right upper quadrant ultrasound, education for discontinuation of Tylenol and alcohol. Follow-up with Dr. ESCOBEDO. (2) Syncope and collapse Is this a current diagnosis for this admission?: Yes Plan: Likely related to hypokalemia, hypocalcemia and long QT interval. Repletion and reevaluation of orthostatic blood pressure. (3) Underweight Is this a current diagnosis for this admission?: Yes Plan: Dietitian consult and screen for anorexia - Time Time Spent: 50 to 70 Minutes - Inpatient Certification Medical Necessity: Need Close Monitoring Due to Risk of Patient Decompensation
[2018-05-24 05:22] LABS: URINE AMPHETAMINES SCREEN NEGATIVE; URINE BARBITURATES SCREEN NEGATIVE; URINE BENZODIAZEPINES SCREEN NEGATIVE; URINE COCAINE SCREEN NEGATIVE; URINE MARIJUANA (THC) SCREEN NEGATIVE; URINE METHADONE SCREEN NEGATIVE; URINE PHENCYCLIDINE SCREEN NEGATIVE
[2018-05-24 05:32] LABS: FOLATE 6.14 ng/mL (>2.76)
[2018-05-24] MEDS: POTASSI CL 20 MEQ/50 ML RIDER 20 MEQ/50 ML RTUPB IV SCH ×2 (05:46→07:52)
--- NOTE | 2018-05-24 07:16 | EKG REPORT ---
SEVERITY:- ABNORMAL ECG - SINUS RHYTHM LOW VOLTAGE THROUGHOUT BORDERLINE T ABNORMALITIES, ANTERIOR LEADS : Confirmed by: Will Koehler MD 24-May-2018 07:16:05
--- NOTE | 2018-05-24 07:16 | EKG REPORT ---
SEVERITY:- ABNORMAL ECG - SINUS RHYTHM BORDERLINE T ABNORMALITIES, ANTERIOR LEADS PROLONGED QT INTERVAL : Confirmed by: Will Koehler MD 24-May-2018 07:16:36
--- NOTE | 2018-05-24 08:55 | PDOC CONSULTATION ---
Consultation Consult Date: 05/24/18 Consult reason:: Hematology consultation was requested for patient with hemochromatosis. History of Present Illness Admission Date/PCP: 05/24/18 03:33 PROMISE CARDENAS History of Present Illness: ANNE MARIE DRUMMOND is a 32 year old female who presented to the ED after syncope. She has been feeling light headed with nausea, fatigue, weight loss and with falls recently and hit her head with laceration. She has had progressive pancytopenia over the last few months and bone marrow biopsy performed in Apr 2018 was unremarkable. She was recently diagnosed with hemochromatosis with a ferritin >1000 and was just started on phlebotomies q 4 weeks. She was scheduled for CT C/A/P later this week as well as colonoscopy. In the ED she was found to have a prolonged Q-T interval and low K and Ca levels. Today, she states that the potassium hurts. She has been eating and drinking well, but has a headache. Past Medical History Cardiac Medical History: Denies: Congestive Heart Failure, Myocardial Infarction, Hypertension Pulmonary Medical History: Denies: Asthma, Bronchitis, Chronic Obstructive Pulmonary Disease (COPD), Pneumonia, Tuberculosis Neurological Medical History: Denies: Seizures Renal/ Medical History: Reports: Nephrolithiasis Denies: End Stage Renal Disease GI Medical History: Reports: Other - Fatty liver Denies: Cirrhosis, Gastroesophageal Reflux Disease Musculoskeltal Medical History: Denies: Arthritis Psychiatric Medical History: Denies: Bipolar Disorder, Depression Hematology: Reports: Anemia, Bleeding Tendencies, Other - Hemochromatosis Past Surgical History Past Surgical History: Reports: Other - Hemorrhoidectomy, breast augmentation, colonoscopy October 2016 Social History Occupation: , homemaker. Lives with: Family Smoking Status: Never Smoker Frequency of Alcohol Use: Occasional Drugs: None Hx Prescription Drug Abuse: No - Advance Directive Resuscitation Status: Full Code Family History Family History: Hypertension Family History: 2 children. Parental Family History Reviewed: Yes - Aplastic anemia due to poisoning in her mother. Thyroid in grandmother Children Family History Reviewed: No Sibling(s) Family History Reviewed.: Yes - Brother DM Medication/Allergy Allergies/Adverse Reactions: No Known Allergies Allergy (Verified 05/17/17 06:09) Review of Systems Constitutional: PRESENT: headache(s) Nose, Mouth, and Throat: PRESENT: vertigo Respiratory: ABSENT: cough, dyspnea Gastrointestinal: PRESENT: nausea Genitourinary: ABSENT: dysuria Integumentary: ABSENT: rash Neurological: PRESENT: syncope Hematologic/Lymphatic: PRESENT: easy bruising Physical Exam Vital Signs: Temp Pulse Resp BP Pulse Ox 98.7 F 82 16 95/65 L 100 05/23/18 17:19 05/23/18 19:29 05/24/18 07:29 05/24/18 07:29 05/24/18 07:29 Intake & Output 05/23/18 05/24/18 05/25/18 06:59 06:59 06:59 Intake Total 3451.22 21 Balance 3451.22 21 Weight 41.1 kg General appearance: PRESENT: thin Head exam: PRESENT: normocephalic Eye exam: PRESENT: EOMI Mouth exam: PRESENT: moist Neck exam: ABSENT: lymphadenopathy, tenderness Respiratory exam: PRESENT: clear to auscultation cielo, unlabored Cardiovascular exam: PRESENT: RRR GI/Abdominal exam: PRESENT: soft. ABSENT: tenderness Extremities exam: ABSENT: pedal edema Musculoskeletal exam: PRESENT: normal inspection Neurological exam: PRESENT: alert, awake Psychiatric exam: PRESENT: appropriate affect Skin exam: PRESENT: normal color Results Laboratory Results: 05/23/18 17:38 05/24/18 01:20 05/23/18 05/23/18 05/23/18 17:38 17:38 23:00 WBC 2.6 L RBC 3.87 Hgb 13.4 Hct 38.9 MCV 101 H MCH 34.6 H MCHC 34.4 RDW 14.7 H Plt Count 244 Seg Neutrophils % 29.5 L Lymphocytes % 57.6 H Monocytes % 10.2 Eosinophils % 1.6 Basophils % 1.1 Absolute Neutrophils 0.8 L Absolute Lymphocytes 1.5 Absolute Monocytes 0.3 Absolute Eosinophils 0.0 Absolute Basophils 0.0 Retic Count (auto) Absolute Retic Sodium 141.2 137.9 Potassium 2.9 L* 2.9 L* Chloride 96 L 106 Carbon Dioxide 38 H 27 D Anion Gap 7 5 BUN 5 L 5 L Creatinine 0.64 0.55 Est GFR ( Amer) > 60 > 60 Est GFR (Non-Af Amer) > 60 > 60 Glucose 116 H 73 L Calcium 9.1 7.3 L Magnesium 2.0 Iron TIBC % Saturation Ferritin Total Bilirubin 0.8 AST 177 H ALT 51 Alkaline Phosphatase 109 Ammonia Total Protein 7.3 Albumin 4.0 Lipase 85.2 Vitamin B12 Folate TSH 05/24/18 05/24/18 05/24/18 01:20 01:20 01:20 WBC RBC Hgb Hct MCV MCH MCHC RDW Plt Count Seg Neutrophils % Lymphocytes % Monocytes % Eosinophils % Basophils % Absolute Neutrophils Absolute Lymphocytes Absolute Monocytes Absolute Eosinophils Absolute Basophils Retic Count (auto) Absolute Retic Sodium 136.6 L Potassium 3.0 L* Chloride 108 H Carbon Dioxide 23 Anion Gap 6 BUN 5 L Creatinine 0.53 Est GFR ( Amer) > 60 Est GFR (Non-Af Amer) > 60 Glucose 90 Calcium 6.7 L* Magnesium 2.7 H Iron 65.4 TIBC 143 L % Saturation 46 Ferritin 215.00 H Total Bilirubin AST ALT Alkaline Phosphatase Ammonia Total Protein Albumin Lipase Vitamin B12 683.0 Folate 6.14 TSH 4.35 05/24/18 05/24/18 04:04 04:04 WBC RBC Hgb Hct MCV MCH MCHC RDW Plt Count Seg Neutrophils % Lymphocytes % Monocytes % Eosinophils % Basophils % Absolute Neutrophils Absolute Lymphocytes Absolute Monocytes Absolute Eosinophils Absolute Basophils Retic Count (auto) 1.62 Absolute Retic 0.048 Sodium Potassium Chloride Carbon Dioxide Anion Gap BUN Creatinine Est GFR ( Amer) Est GFR (Non-Af Amer) Glucose Calcium Magnesium Iron TIBC % Saturation Ferritin Total Bilirubin AST ALT Alkaline Phosphatase Ammonia < 8.7 L Total Protein Albumin Lipase Vitamin B12 Folate TSH 05/24/18 04:04 NT-Pro-B Natriuret Pep 215 H Impressions: Abdomen/Pelvis CT 05/23/18 17:33 IMPRESSION: Low-attenuation liver: Fatty infiltration. Amyloid infiltration. Hepatocellular disease. Chest X-Ray 05/23/18 17:33 IMPRESSION: NO SIGNIFICANT RADIOGRAPHIC FINDING IN THE CHEST. Head CT 05/23/18 17:33 IMPRESSION: NORMAL BRAIN CT WITHOUT CONTRAST. EVIDENCE OF ACUTE STROKE: NO. Status: Image reviewed by me Assessment & Plan - Diagnosis (1) Syncope and collapse Is this a current diagnosis for this admission?: Yes Plan: Unsure of cause. Would consult cardiology, as there was prolonged QT interval. (2) Hypokalemia Is this a current diagnosis for this admission?: Yes Plan: Multiple electrolyte abnormalities. Perhaps renal or endocrine in nature. She reports that she is eating and drinking better now. (3) Hemochromatosis Qualifiers: Hemochromatosis type: unspecified Qualified Code(s): E83.119 - Hemo chromatosis, unspecified Is this a current diagnosis for this admission?: Yes Plan: Has been receiving phlebotomies q 3-4 weeks. Will hold off while she is in the hospital. - Plan Summary Plan Summary: I will continue to follow her. Please call me with any concerns.
[2018-05-24] MEDS: POTASSIUM CHLORIDE 10 MEQ CAPSULE.ER PO SCH (10:32)
[2018-05-24] MEDS ORDERED: BISACODYL 5 MG TABEC PO PRN (12:24)
[2018-05-24] MEDS: POLYETHYLENE GLYCOL 3350 POWDER 17 GM/1 PACKET PO SCH (12:44)
--- NOTE | 2018-05-24 15:29 | Physician Advisory Note ---
Physician Advisor ProgressNote .: [place] [facility] I have reviewed the medical record for this patient. Physician Advisor Statement: Please consider documenting, if you agree: 1. "acute hypokalemia with associated acute , suspect due to " (anorexia nervosa? overuse of sympathomimetics such as decongestants/diet pills/diuretic? N/V/D - self-induced or otherwise?, extremely low-calorie diet? primary aldost eronism? ...) 2. "prolonged QT interval, suspect due to " (severe hypokalemia/hypocalcemia, ...?) 3. "acute hypocalcemia, suspect due to " 4. "suspected protein-calorie malnutrition [state mild/mod/ sev] with BMI 16.1, ____[?appetite loss ]" & state all supporting evidence you can: A. Loss of subcut fat is (mild/mod/sev), B. Loss of muscle mass is (mild/mod/sev) C. Dry Cure Worker strength noticeably reduced (or not) D. Amt weight lost over the past week/mo/3mo/6mo/year (note usual wt) ... & clinical importance such as: A. engineer/conductor consult ordered, B. modified diet/supplements ordered, C. additional labs ordered, ... 5. Please clarify/correct (if appropriate) the H&P exam finding documentation that pt "well nourished" - ? was this intended? - and whether pt has had wt gain or wt loss recently, w/amts/time associated (see below) Quick version on status: - If attending feels pt simply needed a few doses of electrolyte/fluid replacement and should likely be fine for d/c home later today or first thing in the AM, then Obs may be best status to start with, changing to Inpt tomorrow if her condition does not adequately resolve. - If attending feels pt is high risk for acute decompensation at this time (state what), &/or continues to be resistant to appropriate tx, then appropriate for Inpt status. 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 po intake & use of cathartics), frequent manipulative behavior (playing staff against each other, often requesting tx.s for "constipation" that will further worsen their electrolyte abnormalities/volume status, & exaggerating their actual po intake), and dangerous cardiac disturbances such as torsades. - Since coming in, this pt has been noted by nurse at 07:00 note to admit to attempting to manipulate her IV pump when it started beeping rather than calling nurse, and at 11:46 to complain of constipation. She has successfully obtained orders for Bisacodyl & Miralax today, though her electrolytes at last check remained quite depleted, she has required multiple boluses of IVF for hydration/BP support, & we do not have objective po intake info supporting the presence of adequate food intake recently for her to have much stool present to produce. This strongly complicates her care and her chances of quick improvement. Thanks! CK
[2018-05-24] MEDS: IBUPROFEN 800 MG TABLET PO PRN (16:10)
[2018-05-24] MEDS ORDERED: ONDANSETRON 4 MG TAB.RAPDIS PO PRN (18:52)
[2018-05-24 20:16] LABS: BLOOD UREA NITROGEN 6 mg/dL (7-20); CALCIUM 7.9 mg/dL (8.4-10.2); GLUCOSE 95 mg/dL (75-110)
[2018-05-24 20:27] LABS: ANION GAP 4 (5-19); CARBON DIOXIDE 24 mmol/L (22-30); CHLORIDE 107 mmol/L (98-107); SODIUM 135.1 mmol/L (137-145)
--- NOTE | 2018-05-25 08:47 | PDOC PROGRESS REPORT ---
Subjective Progress Note for:: 05/25/18 Subjective:: Patient feels a little bit better but still quite dizzy when she gets up and winded even when she walks to the bathroom and back. She feels like she is ran a mile around a block when she just walks 10-20 feet and back. I reviewed her CT of the abdomen pelvis, it notes low attenuation in the liver consistent with fatty infiltration versus amyloid versus hepatocellular disease. Echocardiogram is pending today. Reason For Visit: HYPOKALEMIA,HYPOCALCEMIA Physical Exam Vital Signs: Temp Pulse Resp BP Pulse Ox 99.4 F 80 16 94/57 L 100 05/25/18 07:48 05/25/18 07:48 05/25/18 07:48 05/25/18 07:48 05/25/18 07:48 Intake & Output 05/24/18 05/25/18 05/26/18 06:59 06:59 06:59 Intake Total 3451.22 281 Balance 3451.22 281 Weight 41.1 kg 49.8 kg General appearance: PRESENT: no acute distress, well-developed, well-nourished Head exam: PRESENT: atraumatic, normocephalic Eye exam: PRESENT: conjunctiva pink, EOMI, PERRLA. ABSENT: scleral icterus Ear exam: PRESENT: normal external ear exam Mouth exam: PRESENT: moist, tongue midline Neck exam: ABSENT: carotid bruit, JVD, lymphadenopathy, thyromegaly Respiratory exam: PRESENT: clear to auscultation cielo. ABSENT: rales, rhonchi, wheezes Cardiovascular exam: PRESENT: RRR. ABSENT: diastolic murmur, rubs, systolic murmur Pulses: PRESENT: normal dorsalis pedis pul Vascular exam: PRESENT: normal capillary refill GI/Abdominal exam: PRESENT: normal bowel sounds, soft. ABSENT: distended, guarding, mass, organolmegaly, rebound, tenderness Rectal exam: PRESENT: deferred Extremities exam: PRESENT: full ROM. ABSENT: calf tenderness, clubbing, pedal edema Neurological exam: PRESENT: alert, awake, oriented to person, oriented to place, oriented to time, oriented to situation, CN II-XII grossly intact. ABSENT: motor sensory deficit Psychiatric exam: PRESENT: appropriate affect, normal mood. ABSENT: homicidal ideation, suicidal ideation Skin exam: PRESENT: dry, intact, warm. ABSENT: cyanosis, rash Results Laboratory Results: 05/23/18 17:38 05/24/18 19:52 05/24/18 19:52 Sodium 135.1 L Potassium 4.0 D Chloride 107 Carbon Dioxide 24 Anion Gap 4 L BUN 6 L Creatinine 0.54 Est GFR ( Amer) > 60 Est GFR (Non-Af Amer) > 60 Glucose 95 Calcium 7.9 L 05/24/18 04:04 NT-Pro-B Natriuret Pep 215 H Impressions: Abdomen/Pelvis CT 05/23/18 17:33 IMPRESSION: Low-attenuation liver: Fatty infiltration. Amyloid infiltration. Hepatocellular disease. Chest X-Ray 05/23/18 17:33 IMPRESSION: NO SIGNIFICANT RADIOGRAPHIC FINDING IN THE CHEST. Head CT 05/23/18 17:33 IMPRESSION: NORMAL BRAIN CT WITHOUT CONTRAST. EVIDENCE OF ACUTE STROKE: NO. Assessment & Plan - Diagnosis (1) Transaminitis Is this a current diagnosis for this admission?: Yes Plan: Does have some transaminitis, plan for liver biopsy because of the infiltration noted on the CT. I am concerned about a process such as amyloid although her age group would not fit exactly for that. I have asked Dr. chiu to evaluate her echocardiogram and look for thickened intraventricular septum or other amyloid infiltrative characteristics. Ultimately she may benefit from a fat pad biopsy as well. (2) Hemochromatosis Qualifiers: Hemochromatosis type: other hemochromatosis Qualified Code(s): E83.118 - Other hemochromatosis Is this a current diagnosis for this admission?: Yes Plan: Unknown if she truly has a hereditary hemochromatosis, she certainly has a genetic abnormality that would identify her as a carrier. Her elevated ferritin may be secondary to some other infiltrative type process going on. - Time Time Spent with patient: 35 or more minutes - Inpatient Certification Based on my medical assessment, after consideration of the patient's comorbidities, presenting symptoms, or acuity I expect that the services needed warrant INPATIENT care.: Yes I certify that my determination is in accordance with my understanding of Medicare's requirements for reasonable and necessary INPATIENT services [42 CFR 412.3e].: Yes Medical Necessity: Need for Surgery, Risk of Complication if Not Cared For in Hospital
[2018-05-25] MEDS ORDERED: CALCIUM GLUCONATE 1000 MG/10 ML INJ IV ONE (08:58)
[2018-05-25] MEDS: FOLIC ACID 1 MG TABLET PO SCH (09:53)
[2018-05-25] MEDS: POTASSIUM CHLORIDE 10 MEQ CAPSULE.ER PO SCH (09:53)
[2018-05-25] MEDS: LORATADINE 10 MG TABLET PO SCH (09:53)
[2018-05-25 11:20] LABS: INTERNATIONAL RATION (INR) 1.07; PROTHROMBIN TIME 14.5 SEC (11.4-15.4)
[2018-05-25] MEDS ORDERED: MIDAZOLAM 2 MG/2 ML INJ ONE (13:21)
[2018-05-25] MEDS ORDERED: LIDOCAINE 1% INJ-PF (10 MG/ML) 30 ML SDV ONE (13:22)
[2018-05-25] MEDS ORDERED: FENTANYL CITRATE INJ/PF 100 MCG/2 ML AMPUL ONE (13:22)
--- NOTE | 2018-05-25 14:24 | RADIOLOGY REPORT (SQ) ---
EXAM DESCRIPTION: CT BIOPSY LIVER; CT NEEDLE PLACEMENT COMPLETED DATE/TIME: 05/25/2018 1:57 pm; 05/25/2018 1:56 pm REASON FOR STUDY: cirrhosis; CIRRHOSIS COMPARISON: None. TECHNIQUE: After obtaining informed consent and explaining the risks and benefits of conscious sedat ion,the patient agreed to the procedure. The patient was brought to the CT suite and was placed supin e on the CT gurney. The patient was prepped and draped in the usual sterile fashion . Axial images w ere obtained for targeting of theinferior right hepatic lobe. An appropriate access site was selected . IV conscious sedation was administered and physician direction by the registered nurse using 1 mill igrams of Versed and 50 micrograms of fentanyl. Physiologic monitoring was provided before, during, a nd after sedation. The total sedation time was 30 minutes. Documentation face to face time, the performing proceduralist, spent monitoring the patient: [address] of the liver was performed to localize an approach for the right hepatic lobe. A p ercutaneous site was marked. Time out was performed. After skin prep and local lidocaine for skin and deep tissue anesthesia, a coaxial biopsy needle sys tem was used to obtain several cores of tissue from the right hepatic lobe. These were submitted to the lab in formalin. No immediate postprocedure complications. Total of [address] fluoro was used. 3 CT Fluoroscopic images were obtained and saved to PACS. All CT scanners at this facility use dose modulation, iterative reconstruction, and/or weight based d osing when appropriate to reduce radiation dose to as low as reasonably achievable (ALARA). [facility]: Dose Right [facility]: CareDose [facility]: Dose Right [facility]: Teradose 4D [facility]: Smart Meal [employer] RADIATION DOSE: CT Rad equipment meets quality standard of care and radiation dose reduction techniq ues were employed. CTDIvol: 5.4 mGy. DLP: 134 mGy-cm. mGy. LIMITATIONS: None. FINDINGS: CT guided liver biopsy as detailed above. IMPRESSION: Non targeted right hepatic lobe CT fluoroscopy guided biopsy as detailed above. No imme diate postprocedural complications. COMMENT: Patient medication list reviewed:Yes- Quality ID# [id number]:Eligible professional attests to docu menting in the medical record they obtained, updated, or reviewed the patient's current medications.. Quality ID 145: Final reports for procedures using fluoroscopy that document radiation exposure reji abhi, or exposure time and number of fluorographic images (if radiation exposure indices are not avail able) TECHNICAL DOCUMENTATION: JOB ID: [id number] Quality ID # [id number]: Final reports with documentation of one or more dose reduction techniques (e.g., A utomated exposure control, adjustment of the mA and/or kV according to patient size, use of iterative reconstruction technique) 2010 [email or web address]- All Rights Reserved Reading location - IP/workstation name: [email or web address]
--- NOTE | 2018-05-25 14:24 | RADIOLOGY REPORT (SQ) ---
EXAM DESCRIPTION: CT BIOPSY LIVER; CT NEEDLE PLACEMENT COMPLETED DATE/TIME: 05/25/2018 1:57 pm; 05/25/2018 1:56 pm REASON FOR STUDY: cirrhosis; CIRRHOSIS COMPARISON: None. TECHNIQUE: After obtaining informed consent and explaining the risks and benefits of conscious sedat ion,the patient agreed to the procedure. The patient was brought to the CT suite and was placed supin e on the CT gurney. The patient was prepped and draped in the usual sterile fashion . Axial images w ere obtained for targeting of theinferior right hepatic lobe. An appropriate access site was selected . IV conscious sedation was administered and physician direction by the registered nurse using 1 mill igrams of Versed and 50 micrograms of fentanyl. Physiologic monitoring was provided before, during, a nd after sedation. The total sedation time was 30 minutes. Documentation face to face time, the performing proceduralist, spent monitoring the patient: [address] of the liver was performed to localize an approach for the right hepatic lobe. A p ercutaneous site was marked. Time out was performed. After skin prep and local lidocaine for skin and deep tissue anesthesia, a coaxial biopsy needle sys tem was used to obtain several cores of tissue from the right hepatic lobe. These were submitted to the lab in formalin. No immediate postprocedure complications. Total of [address] fluoro was used. 3 CT Fluoroscopic images were obtained and saved to PACS. All CT scanners at this facility use dose modulation, iterative reconstruction, and/or weight based d osing when appropriate to reduce radiation dose to as low as reasonably achievable (ALARA). [facility]: Dose Right [facility]: CareDose [facility]: Dose Right [facility]: Teradose 4D [facility]: Smart [employer] RADIATION DOSE: CT Rad equipment meets quality standard of care and radiation dose reduction techniq ues were employed. CTDIvol: 5.4 mGy. DLP: 134 mGy-cm. mGy. LIMITATIONS: None. FINDINGS: CT guided liver biopsy as detailed above. IMPRESSION: Non targeted right hepatic lobe CT fluoroscopy guided biopsy as detailed above. No imme diate postprocedural complications. COMMENT: Patient medication list reviewed:Yes- Quality ID# [id number]:Eligible professional attests to docu menting in the medical record they obtained, updated, or reviewed the patient's current medications.. Quality ID 145: Final reports for procedures using fluoroscopy that document radiation exposure reji abhi, or exposure time and number of fluorographic images (if radiation exposure indices are not avail able) TECHNICAL DOCUMENTATION: JOB ID: [id number] Quality ID # [id number]: Final reports with documentation of one or more dose reduction techniques (e.g., A utomated exposure control, adjustment of the mA and/or kV according to patient size, use of iterative reconstruction technique) 2010 [employer]- All Rights Reserved Reading location - IP/workstation name: [email or web address]
[2018-05-25] MEDS: POLYETHYLENE GLYCOL 3350 POWDER 17 GM/1 PACKET PO SCH (17:37)
--- NOTE | 2018-05-25 19:13 | PDOC PROGRESS REPORT ---
Subjective Progress Note for:: 05/25/18 Subjective:: No adverse events overnight. No new complaints. Vital signs been stable. Blood pressure has remained on the low side but is been stable and she is been asymptomatic. Urine output is been good. Her appetite has improved. Reason For Visit: HYPOKALEMIA,HYPOCALCEMIA Physical Exam Vital Signs: Temp Pulse Resp BP Pulse Ox 97.3 F 78 16 94/61 L 100 05/25/18 15:30 05/25/18 15:30 05/25/18 15:30 05/25/18 15:30 05/25/18 15:30 Intake & Output 05/24/18 05/25/18 05/26/18 06:59 06:59 06:59 Intake Total 3451.22 281 240 Balance 3451.22 281 240 Weight 41.1 kg 49.8 kg General appearance: PRESENT: no acute distress, cooperative, thin Respiratory exam: PRESENT: clear to auscultation cielo, symmetrical, unlabored. ABSENT: accessory muscle use, rales, rhonchi, tachypnea, wheezes Cardiovascular exam: PRESENT: RRR, +S1, +S2 Vascular exam: PRESENT: normal capillary refill GI/Abdominal exam: PRESENT: normal bowel sounds, soft. ABSENT: distended, guarding, rebound, tenderness Extremities exam: ABSENT: clubbing, pedal edema Musculoskeletal exam: PRESENT: normal inspection. ABSENT: deformity Neurological exam: PRESENT: alert, awake, oriented to person, oriented to place, oriented to time, oriented to situation Psychiatric exam: PRESENT: appropriate affect, normal mood Skin exam: PRESENT: dry, warm Results Laboratory Results: 05/23/18 17:38 05/24/18 19:52 05/24/18 19:52 Sodium 135.1 L Potassium 4.0 D Chloride 107 Carbon Dioxide 24 Anion Gap 4 L BUN 6 L Creatinine 0.54 Est GFR ( Amer) > 60 Est GFR (Non-Af Amer) > 60 Glucose 95 Calcium 7.9 L 05/24/18 04:04 NT-Pro-B Natriuret Pep 215 H Impressions: Abdomen/Pelvis CT 05/23/18 17:33 IMPRESSION: Low-attenuation liver: Fatty infiltration. Amyloid infiltration. Hepatocellular disease. Chest X-Ray 05/23/18 17:33 IMPRESSION: NO SIGNIFICANT RADIOGRAPHIC FINDING IN THE CHEST. Head CT 05/23/18 17:33 IMPRESSION: NORMAL BRAIN CT WITHOUT CONTRAST. EVIDENCE OF ACUTE STROKE: NO. Guidance Needle Placement CT 05/25/18 00:00 IMPRESSION: Non targeted right hepatic lobe CT fluoroscopy guided biopsy as detailed above. No immediate postprocedural complications. Liver Biopsy CT 05/25/18 09:37 IMPRESSION: Non targeted right hepatic lobe CT fluoroscopy guided biopsy as detailed above. No immediate postprocedural complications. Assessment & Plan - Diagnosis (1) Hypokalemia Is this a current diagnosis for this admission?: Yes Plan: Resolved (2) Syncope and collapse Is this a current diagnosis for this admission?: Yes Plan: Etiology of this is unsure. She has not had any more such episodes here. She has been hydrated and her electrolytes have been corrected. She was tentatively diagnosed with hemochromatosis, but she is been seen by Dr. Olivarez who is concerned that she might possibly have amyloidosis. She has had a liver biopsy ordered, as well as an echocardiogram. Those tests are pending. Once she has had them she can probably be discharged home to follow-up with Dr. Olivarez in his office. - Time Time Spent with patient: 15-24 minutes
[2018-05-25] MEDS: IBUPROFEN 800 MG TABLET PO PRN (23:26)
[2018-05-26] MEDS: IBUPROFEN 800 MG TABLET PO PRN (10:36)
[2018-05-26] MEDS: FOLIC ACID 1 MG TABLET PO SCH (10:38)
[2018-05-26] MEDS: LORATADINE 10 MG TABLET PO SCH (10:38)
[2018-05-26] MEDS: POTASSIUM CHLORIDE 10 MEQ CAPSULE.ER PO SCH (10:38)
[2018-05-26] MEDS: POLYETHYLENE GLYCOL 3350 POWDER 17 GM/1 PACKET PO SCH (10:39)
--- NOTE | 2018-05-26 10:50 | PDOC PROGRESS REPORT ---
Subjective Progress Note for:: 05/26/18 Subjective:: Patient states that she is very sore after the liver biopsy yesterday. Otherwise, is feeling better. She is awaiting cardiology report. She is hoping to go home later today. ROS: pain in her abdomen/side. Denies dyspnea, nausea, dizziness. Reason For Visit: HYPOKALEMIA,HYPOCALCEMIA Physical Exam Vital Signs: Temp Pulse Resp BP Pulse Ox 98.7 F 74 16 100/64 100 05/26/18 07:21 05/26/18 07:21 05/26/18 07:21 05/26/18 07:21 05/26/18 07:21 Intake & Output 05/25/18 05/26/18 05/27/18 06:59 06:59 06:59 Intake Total 281 240 Balance 281 240 Weight 49.8 kg 48.8 kg General appearance: PRESENT: thin Head exam: PRESENT: normocephalic Respiratory exam: PRESENT: clear to auscultation cielo, unlabored Cardiovascular exam: PRESENT: RRR Extremities exam: ABSENT: pedal edema Neurological exam: PRESENT: alert, awake Psychiatric exam: PRESENT: appropriate affect Skin exam: PRESENT: normal color - Await results of the liver biopsy. Her symptoms have improved. I will be happy to see her again as outpatient to review results of biopsy when available. Results Laboratory Results: 05/23/18 17:38 05/24/18 19:52 05/24/18 04:04 NT-Pro-B Natriuret Pep 215 H Impressions: Abdomen/Pelvis CT 05/23/18 17:33 IMPRESSION: Low-attenuation liver: Fatty infiltration. Amyloid infiltration. Hepatocellular disease. Chest X-Ray 05/23/18 17:33 IMPRESSION: NO SIGNIFICANT RADIOGRAPHIC FINDING IN THE CHEST. Head CT 05/23/18 17:33 IMPRESSION: NORMAL BRAIN CT WITHOUT CONTRAST. EVIDENCE OF ACUTE STROKE: NO. Guidance Needle Placement CT 05/25/18 00:00 IMPRESSION: Non targeted right hepatic lobe CT fluoroscopy guided biopsy as detailed above. No immediate postprocedural complications. Liver Biopsy CT 05/25/18 09:37 IMPRESSION: Non targeted right hepatic lobe CT fluoroscopy guided biopsy as detailed above. No immediate postprocedural complications. Assessment & Plan - Diagnosis (1) Syncope and collapse Is this a current diagnosis for this admission?: Yes (2) Hypokalemia Is this a current diagnosis for this admission?: Yes (3) Hemochromatosis Qualifiers: Hemochromatosis type: other hemochromatosis Qualified Code(s): E83.118 - Other hemochromatosis Is this a current diagnosis for this admission?: Yes
[2018-05-26 13:43] VITALS: BP 114/70
--- NOTE | 2018-05-26 17:20 | PDOC DISCHARGE SUMMARY ---
General - Admit/Disc Date/PCP Admission Date/Primary Care Provider: 05/24/18 03:33 DARRIONOLIVIER MALLOYP-C Discharge Date: 05/26/18 - Discharge Diagnosis (1) Hypokalemia Is this a current diagnosis for this admission?: Yes Summary: Responded well to oral supplementation. Suspected to be from mild dehydration and decreased p.o. intake. (2) Syncope and collapse Is this a current diagnosis for this admission?: Yes Summary: Had one episode at home, none since her presentation here. Possibly orthostatic from dehydration. (3) Hemochromatosis Is this a current diagnosis for this admission?: Yes Summary: Got liver biopsy and echocardiogram per Dr. Olivarez, will follow up outpatient with Dr. Jeff to see if this is amyloidosis instead of hemochromatosis. - Additional Information Resuscitation Status: Full Code Discharge Diet: Regular Discharge Activity: Activity As Tolerated, Balance Activity w/Rest, Energy Conservation, No Lifting Over 10 Pounds, No Lifting/Push/Pulling, Slowly Increase Activity Home Medications: Fexofenadine HCl [Azra] 180 mg PO DAILY 05/24/18 Folic Acid [Folvite 1 mg Tablet] 1 mg PO DAILY 05/24/18 Meloxicam [Mobic] 7.5 mg PO DAILYP PRN 05/24/18 Ondansetron [Zofran Odt 4 mg Tablet] 4 mg PO Q4HP PRN 05/24/18 History of Present Illness History of Present Illness: ANNE MARIE DRUMMOND is a 32 year old female with a past medical history of hemochromatosis requiring phlebotomy presents with lightheadedness and episode of passing out. Lately upon standing she is felt lightheaded and dizzy upon standing and yesterday actually fell forward striking her right eyebrow. Her symptoms have persisted with activity prompting her to seek evaluation in the emergency room. She is found to have hypotension with a systolic blood pressure in the 80s, orthostatic hypotension, hypokalemia and hypocalcemia. She is received electrolyte repletion and referred to the hospitalist for admission for persistent hypotension. Patient admits similar symptoms for approximately 3 months but increasing in severity and duration. She denies chest pain, palpitations, shortness of breath, nausea or vomiting. She denies headache, neck stiffness blurred vision fever, chills, heat or cold intolerance or focal pain. No recent menstrual cycle secondary to subcut depot control. She does admit to fatigue, weight gain, difficulty concentrating and constipation. Hospital Course Hospital Course: We replaced her electrolytes and gave her some IV fluids and she was feeling a lot better. She began to eat more. She was seen in consultation by oncology, and there was some concern that maybe she did not actually have hemochromatosis, and that possibly she may have amyloidosis. A liver biopsy was performed as well as an echocardiogram. She was doing well enough to leave the hospital, so she will follow-up on the results outpatient with Dr. Jeff next week. Physical Exam Vital Signs: Temp Pulse Resp BP Pulse Ox 98.7 F 74 16 114/70 100 05/26/18 13:40 05/26/18 13:40 05/26/18 13:40 05/26/18 13:40 05/26/18 13:40 Intake & Output 05/25/18 05/26/18 05/27/18 06:59 06:59 06:59 Intake Total 281 240 237 Balance 281 240 237 Weight 49.8 kg 48.8 kg General appearance: PRESENT: no acute distress, cooperative, thin Respiratory exam: PRESENT: clear to auscultation cielo, symmetrical, unlabored. ABSENT: accessory muscle use, rales, rhonchi, tachypnea, wheezes Cardiovascular exam: PRESENT: RRR, +S1, +S2 Vascular exam: PRESENT: normal capillary refill GI/Abdominal exam: PRESENT: normal bowel sounds, soft. ABSENT: distended, guarding, rebound, tenderness Extremities exam: ABSENT: clubbing, pedal edema Musculoskeletal exam: PRESENT: normal inspection. ABSENT: deformity Neurological exam: PRESENT: alert, awake, oriented to person, oriented to place, oriented to time, oriented to situation Psychiatric exam: PRESENT: appropriate affect, normal mood Skin exam: PRESENT: dry, warm Results Laboratory Results: 05/23/18 17:38 05/24/18 19:52 05/24/18 04:04 NT-Pro-B Natriuret Pep 215 H Impressions: Abdomen/Pelvis CT 05/23/18 17:33 IMPRESSION: Low-attenuation liver: Fatty infiltration. Amyloid infiltration. Hepatocellular disease. Chest X-Ray 05/23/18 17:33 IMPRESSION: NO SIGNIFICANT RADIOGRAPHIC FINDING IN THE CHEST. Head CT 05/23/18 17:33 IMPRESSION: NORMAL BRAIN CT WITHOUT CONTRAST. EVIDENCE OF ACUTE STROKE: NO. Guidance Needle Placement CT 05/25/18 00:00 IMPRESSION: Non targeted right hepatic lobe CT fluoroscopy guided biopsy as detailed above. No immediate postprocedural complications. Liver Biopsy CT 05/25/18 09:37 IMPRESSION: Non targeted right hepatic lobe CT fluoroscopy guided biopsy as detailed above. No immediate postprocedural complications. Qualifiers - * PATIENT BEING DISCHARGED WITH ANY OF THE FOLLOWING DIAGNOSIS: No
--- NOTE | 2018-05-26 23:26 | XCELERA REPORT ---
[address] [address] Transthoracic Echocardiogram Report Name: ANNE MARIE DRUMMOND Age: 32 yrs Gender: Female : 1985 Patient Status: Inpatient Patient Location: [address] [place], [place] [address] Study Date: 05/25/2018 07:31 PM Height: 63 in Weight: 95 lb BSA: 1.4 m2 Procedure: A two-dimensional transthoracic echocardiogram with color flow and Doppler was performed. Study Quality: Fair. Reason For Study: SYNCOPE History: SYNCOPE. Ordering Physician: ETHAN SOLOMON Performed By: Saundra Casey Interpretation Summary No scintillating speckled pattern of LVwalls seen in cardiac amyloidosis>. The left ventricle is normal in size. There is normal left ventricular wall thickness. LV EF is > THAN 65% Left ventricular systolic function is normal. Doppler measurements suggest normal left ventricular diastolic function The left ventricular wall motion is normal. There is no thrombus. The right ventricle is normal in size and function. The right atrium is normal. The left atrial size is normal. The interatrial septum is intact with no evidence for an atrial septal defect. There is no evidence of mitral valve prolapse. There is no vegetation seen on the mitral valve. There is no mitral valve stenosis. There is a trace amount of mitral regurgitation There is no aortic valvular vegetation. There is no aortic valve stenosis There is no LVOT obstruction. No aortic regurgitation is present. There is no tricuspid stenosis. There is a trace amount of tricuspid regurgitation Right ventricular systolic pressure is normal. rvsp IS 16 TO 21 MM OF hG WITH ra MEAN OF 5 TO 10. The aortic root is normal size. There is no pericardial effusion. No scintillating speckled pattern of LVwalls seen in cardiac amyloidosis> MMode/2D Measurements & Calculations RVDd: 1.7 cm LVIDd: 4.1 cm FS: 39.5 % Ao root diam: 2.5 cm IVSd: 0.64 cm LVIDs: 2.5 cm EDV(Teich): Ao root area: LVPWd: 0.79 cm 73.9 ml 4.9 cm2 ESV(Teich): LA dimension: 2.2 cm 21.8 ml EF(Teich): 70.5 % LVLd ap4: 5.5 cm SV(MOD-sp4): EDV(MOD-sp4): 15.0 ml 22.0 ml LVLs ap4: 3.9 cm ESV(MOD-sp4): 7.0 ml EF(MOD-sp4): 68.2 % Doppler Measurements & Calculations MV E max bette: MV P1/2t max bette: Ao V2 max: LV V1 max P.4 cm/sec 76.5 cm/sec 90.4 cm/sec 2.1 mmHg MV A max bette: MV P1/2t: 59.0 msec Ao max P.3 mmHg LV V1 max: 46.5 cm/sec MVA(P1/2t): 3.7 cm2 72.8 cm/sec MV E/A: 1.5 MV dec slope: 380.1 cm/sec2 MV dec time: 0.19 sec PA V2 max: TR max bette: MV P1/2t-pr_phl: 80.6 cm/sec 166.1 cm/sec 59.6 msec PA max P.6 mmHgTR max P.0 mmHg Left Ventricle The left ventricle is normal in size. There is normal left ventricular wall thickness. LV EF is > THAN 65%. Left ventricular systolic function is normal. Doppler measurements suggest normal left ventricular diastolic function. The left ventricular wall motion is normal. There is no thrombus. Right Ventricle The right ventricle is normal in size and function. Atria The right atrium is normal. The left atrial size is normal. The interatrial septum is intact with no evidence for an atrial septal defect. Mitral Valve There is no evidence of mitral valve prolapse. There is no vegetation seen on the mitral valve. There is no mitral valve stenosis. There is a trace amount of mitral regurgitation. Aortic Valve There is no aortic valvular vegetation. There is no aortic valve stenosis. There is no LVOT obstruction. No aortic regurgitation is present. Tricuspid Valve There is no tricuspid stenosis. There is a trace amount of tricuspid regurgitation. Right ventricular systolic pressure is normal. rvsp IS 16 TO 21 MM OF hG WITH ra MEAN OF 5 TO 10. Pulmonic Valve There is no pulmonic valvular stenosis. There is no pulmonic valvular regurgitation. Great Vessels The aortic root is normal size. Effusions There is no pericardial effusion. : ETHAN SOLOMON > Gonzales, Bailey
== END 2018-05-26 14:05 | disposition home or self-care (01) | DRG 641 ==
LOC: ER 17:09 → OBSVTOIN 05-24 03:33 → EH 05-24 03:33 → 4S 05-24 16:57
PROVIDERS: ADMIT Internal Medicine; ATTEND Family Medicine
PROC: 0FB13ZX Excision of Right Lobe Liver, Percutaneous Approach, Diagnostic (ICD-10-PCS; principal; 2018-05-25)
DX: E87.6 Hypokalemia (principal); Z68.1 Body mass index [BMI] 19.9 or less, adult; E83.118 Other hemochromatosis; I95.1 Orthostatic hypotension; R63.6 Underweight; E86.0 Dehydration; E83.51 Hypocalcemia; S01.111A Laceration without foreign body of right eyelid and periocular area, initial encounter; W18.30XA Fall on same level, unspecified, initial encounter; Z82.49 Family history of ischemic heart disease and other diseases of the circulatory system; Z79.899 Other long term (current) drug therapy
CPT/HCPCS: 36415; 47000; 70450; 71046; 74177; 77012; 80048; 80053; 80307; 81025; 82140; 82607; 82728; 82746; 83036; 83540; 83550; 83690; 83735; 83880; 84443; 85025; 85045; 85610; 88307; 88313; 93005; 93010; 93306; 96361; 96365; 96366; 96367; 99285; J0610; J2250; J3010; J3475; J3480; J3490; J7030; J7120

== ENCOUNTER 2018-06-29 07:49 | Emergency (ER) | payer OTHER ==
[2018-06-29 08:50] LABS: ABSOLUTE MONOCYTES (AUTO) 0.2 10^3/uL (0.1-1.4); ABSOLUTE NEUT (AUTO) 0.9 10^3/uL (1.7-8.2); BASOPHILS % (AUTO) 0.4 % (0-2); EOSINOPHILS % (AUTO) 1.6 % (0-6); HEMATOCRIT 29.9 % (36.0-47.0); HEMOGLOBIN 10.3 g/dL (12.0-15.5); MEAN CORPUSCULAR HEMOGLOBIN 33.4 pg (27.0-33.4); MEAN CORPUSCULAR HGB CONC 34.6 g/dL (32.0-36.0); MEAN CORPUSCULAR VOLUME 96 fl (80-97); MONOCYTES % (AUTO) 10.6 % (3-13); PLATELET COUNT 224 10^3/uL (150-450); RED CELL DISTRIBUTION WIDTH 14.5 % (11.5-14.0); SEGMENTED NEUTROPHILS % (AUTO) 42.4 % (42-78); TOTAL CELLS COUNTED % (AUTO) 100 %; WHITE BLOOD COUNT 2.2 10^3/uL (4.0-10.5)
--- NOTE | 2018-06-29 08:56 | RADIOLOGY REPORT (SQ) ---
EXAM DESCRIPTION: CHEST SINGLE VIEW COMPLETED DATE/TIME: 06/29/2018 8:43 am REASON FOR STUDY: chest pain COMPARISON: 05/23/2018 EXAM PARAMETERS: NUMBER OF VIEWS: One view. TECHNIQUE: Single frontal radiographic view of the chest acquired. RADIATION DOSE: NA LIMITATIONS: None. FINDINGS: LUNGS AND PLEURA: No opacities, masses or pneumothorax. No pleural effusion. MEDIASTINUM AND HILAR STRUCTURES: No masses. Contour normal. HEART AND VASCULAR STRUCTURES: Heart normal in size. Normal vasculature. BONES: No acute findings. HARDWARE: None in the chest. OTHER: No other significant finding. IMPRESSION: No acute abnormality of the lungs. TECHNICAL DOCUMENTATION: JOB ID: [id number] [employer]- All Rights Reserved Reading location - IP/workstation name: [email or web address]
[2018-06-29 09:25] LABS: ANION GAP 6 (5-19); BLOOD UREA NITROGEN 9 mg/dL (7-20); CALCIUM 8.4 mg/dL (8.4-10.2); CARBON DIOXIDE 35 mmol/L (22-30); CHLORIDE 97 mmol/L (98-107); GLUCOSE 99 mg/dL (75-110); POTASSIUM 3.2 mmol/L (3.6-5.0); SODIUM 137.5 mmol/L (137-145)
[2018-06-29] MEDS ORDERED: NORMAL SALINE 1000 ML 1,000 ML IV ONE (10:05)
--- NOTE | 2018-06-29 10:06 | ER Document Report ---
ED Cardiac - General Chief Complaint: Chest Pain Stated Complaint: CHEST PAIN Time Seen by Provider: 06/29/18 08:21 Primary Care Provider: DARRION BERRIOS FNP-C [Primary Care Provider] - Follow up as needed TRAVEL OUTSIDE OF THE [place] IN LAST 30 DAYS: No - HPI Notes: Patient is a 32-year-old female that presents to the emergency department for chief complaint of chest pain. Patient describes a sharp left-sided chest pain began yesterday. Her pain is been constant since onset without period of resolution since yesterday evening. She states he gets significantly worse when she is lying on her left side, back, or leaning forward to the left. She also states it is worse with deep inspiration. She denies any history of DVT/PE. Patient is currently wearing a Holter monitor as prescribed by Dr. Antunez for syncopal episode she has been experiencing. She states she was in the hospital for 5 days about a month ago after experiencing hypotension with syncope. Patient states that she has a blood disorder but is not sure what the exact diagnosis is. She states her iron levels run high and she has irregularly-shaped red cells with low white cells. She does see Dr. Jeff for hematology. Patient has not taken any [id number] medication for her pain. Past Medical History: Syncope, leukopenia, elevated iron levels Past Surgical History: Liver biopsy, breast augmentation Social History: Occasional alcohol. Denies tobacco and drug use Family History: Reviewed and noncontributory for presenting illness Allergies: Reviewed, see documented allergy list. REVIEW OF SYSTEMS: CONSTITUTIONAL : No fever No chills No diaphoresis No recent illness EENT: No vision changes No congestion No sore throat CARDIOVASCULAR: chest pain No palpitations RESPIRATORY: No shortness of breath No cough No difficulty breathing GASTROINTESTINAL: No abdominal pain No nausea No vomiting No diarrhea GENITOURINARY: No dysuria No hematuria No difficulty urinating MUSCULOSKELETAL: No back pain No leg pain No arm pain SKIN: No rashes No lesions LYMPHATIC: No swollen, enlarged glands. NEUROLOGICAL: No lightheadedness No headache No weakness No paresthesias PSYCHIATRIC: No anxiety No depression PHYSICAL EXAMINATION: Vital signs reviewed, nursing noted reviewed. GENERAL: Well-appearing, well-nourished and in no acute distress. HEAD: Atraumatic, normocephalic. EYES: Eyes appear normal, extraocular movements intact, sclera anicteric, conjunctiva are normal. ENT: nares patent, oropharynx clear without exudates. Moist mucous membranes. NECK: Normal range of motion, supple without lymphadenopathy LUNGS: Breath sounds clear to auscultation bilaterally and equal. No wheezes rales or rhonchi. HEART: No friction rub, regular rate and rhythm without murmurs, +2/4 bilateral radial and DP pulse ABDOMEN: Soft, nontender, normoactive bowel sounds. No rebound, guarding, or rigidity. No masses appreciated. EXTREMITIES: Nontender, good range of motion, no pitting or edema. NEUROLOGICAL: No focal neurological deficits. Moves all extremities spontaneously Motor and sensory grossly intact on exam. PSYCH: Normal mood, normal affect. SKIN: Warm, Dry, normal turgor, no rashes or lesions noted on exposed skin - Related Data Allergies/Adverse Reactions: No Known Allergies Allergy (Verified 06/29/18 08:53) Past Medical History - Social History Smoking Status: Never Smoker Frequency of alcohol use: None Drug Abuse: None Family History: Hypertension Patient has suicidal ideation: No Patient has homicidal ideation: No - Past Medical History Cardiac Medical History: Denies: Hx Congestive Heart Failure, Hx Heart Attack, Hx Hypertension Pulmonary Medical History: Denies: Hx Asthma, Hx Bronchitis, Hx COPD, Hx Pneumonia, Hx Tuberculosis Neurological Medical History: Denies: Hx Seizures Renal/ Medical History: Reports: Hx Kidney Stones. Denies: Hx End Stage Renal Disease, Hx Peritoneal Dialysis GI Medical History: Denies: Hx Cirrhosis, Hx Gastroesophageal Reflux Disease, Hx Ulcer Musculoskeletal Medical History: Denies Hx Arthritis, Denies Hx Multiple Sclerosis Psychiatric Medical History: Denies: Hx Bipolar Disorder, Hx Depression, Hx Schizophrenia Past Surgical History: Reports: Hx Breast Surgery, Hx Oral Surgery, Other - Hemorrhoidectomy, breast augmentation, colonoscopy October 2016 - Immunizations Hx Diphtheria, Pertussis, Tetanus Vaccination: No Physical Exam - Vital signs Vitals: Temp Pulse Resp BP Pulse Ox 98.8 F 82 16 97/70 L 100 06/29/18 08:00 06/29/18 08:00 06/29/18 08:00 06/29/18 08:00 06/29/18 08:00 Course - Re-evaluation Re-evalutation: 06/29/18 10:12 Vitals reviewed. Nursing notes reviewed. Patient's EKG is unchanged from comparison. Her symptoms are very positional concerning for possible pericarditis. Patient given IV Toradol for anti-inflammatory properties and pain control. 06/29/18 10:28 Patient's initial workup is unremarkable. ESR and CRP are still pending. I discussed her care with Dr. Antunez who recommends getting a cardiac echo in the emergency room which he will interpret to further diagnose pericarditis. Laboratory 06/29/18 06/29/18 06/29/18 08:43 08:43 08:43 WBC 2.2 L RBC 3.10 L Hgb 10.3 L Hct 29.9 L MCV 96 MCH 33.4 MCHC 34.6 RDW 14.5 H Plt Count 224 Seg Neutrophils % 42.4 Lymphocytes % 45.0 Monocytes % 10.6 Eosinophils % 1.6 Basophils % 0.4 Absolute Neutrophils 0.9 L Absolute Lymphocytes 1.0 Absolute Monocytes 0.2 Absolute Eosinophils 0.0 Absolute Basophils 0.0 Sodium 137.5 Potassium 3.2 L Chloride 97 L Carbon Dioxide 35 H Anion Gap 6 BUN 9 Creatinine 0.93 Est GFR ( Amer) > 60 Est GFR (Non-Af Amer) > 60 Glucose 99 Calcium 8.4 Troponin I < 0.012 06/29/18 12:04 Patient's ESR and CRP are normal. I rediscussed her labs with Dr. Antunez who agrees without these labs being elevated she does not have pericarditis. He states she has had recent echo and is not requiring another one today. He will see her in the office for close reevaluation. Since her chest pain has been constant without resolution and her troponin is negative I do not suspect ACS. Patient was counseled on return precautions. She is stable at time of discharge. - Vital Signs Vital signs: Temp Pulse Resp BP Pulse Ox 98.8 F 82 18 94/68 L 100 06/29/18 08:00 06/29/18 08:00 06/29/18 11:01 06/29/18 11:01 06/29/18 11:01 - Laboratory Result Diagrams: 06/29/18 08:43 06/29/18 08:43 Laboratory results interpreted by me: 06/29/18 06/29/18 08:43 08:43 WBC 2.2 L RBC 3.10 L Hgb 10.3 L Hct 29.9 L RDW 14.5 H Absolute Neutrophils 0.9 L Potassium 3.2 L Chloride 97 L Carbon Dioxide 35 H - EKG Interpretation by Me Additional EKG results interpreted by me: 06/29/18 10:06 Interpreted by myself [id number]: Normal sinus rhythm, rate 80, borderline left axis, no ectopy, diffuse T wave flattening, unchanged from 05/24/18 Discharge - Discharge Clinical Impression: Chest pain Qualifiers: Chest pain type: unspecified Qualified Code(s): R07.9 - Chest pain, unspecified Condition: Stable Disposition: HOME, SELF-CARE Instructions: Chest Pain of Unclear Cause ([facility]) Additional Instructions: Please return to the emergency department if you have any worsening, or concern of your symptoms. Please return to the emergency department if you develop chest pain, difficulty breathing, severe abdominal pain, or ongoing vomiting. Please follow-up with your primary care physician in 2-3 days and any other recommended physicians. If prescribed, take all medications as directed. If you have any questions or concerns do not hesitate to return the emergency department for evaluation. Call Dr. Antunez for follow-up in his office in the next 2-3 days Prescriptions: Naproxen 500 mg PO BID PRN #30 tablet PRN Reason: Pain Scale Of 1 Referrals: DARRION BERRIOS FNP-C [Primary Care Provider] - Follow up as needed PRADEEP ANTUNEZ MD [ACTIVE STAFF] - 07/01/18
[2018-06-29] MEDS ORDERED: KETOROLAC TROMETHAMINE INJ/PF 30 MG/1 ML SDV IV ONE (10:11)
[2018-06-29 13:18] VITALS: BP 91/60
--- NOTE | 2018-06-30 00:33 | EKG REPORT ---
SEVERITY:- OTHERWISE NORMAL ECG - SINUS RHYTHM BORDERLINE LEFT AXIS DEVIATION : Confirmed by: Bailey Rolon MD 30-Jun-2018 00:32:10
== END 2018-06-29 13:25 | disposition home or self-care (01) ==
LOC: ER 07:49
DX: R07.9 Chest pain, unspecified (principal)
CPT/HCPCS: 93005; 99285; 96361; 96374; 36415; 85025; 85652; 86140; 80048; 84484; 71045; 93010; J1885; J7030

== ENCOUNTER → 2018-07-22 | Outpatient (CLI) | payer OTHER ==
--- NOTE | 2018-07-22 14:07 | RADIOLOGY REPORT (SQ) ---
EXAM DESCRIPTION: CHEST PA/LATERAL COMPLETED DATE/TIME: 07/22/2018 1:41 pm REASON FOR STUDY: COUGH COMPARISON: 06/29/2018 EXAM PARAMETERS: NUMBER OF VIEWS: two views TECHNIQUE: Digital Frontal and Lateral radiographic views of the chest acquired. RADIATION DOSE: NA LIMITATIONS: none FINDINGS: LUNGS AND PLEURA: No opacities, masses or pneumothorax. No pleural effusion. MEDIASTINUM AND HILAR STRUCTURES: No masses or contour abnormalities. HEART AND VASCULAR STRUCTURES: Heart normal size. No evidence for failure. BONES: No acute findings. HARDWARE: None in the chest. OTHER: Breast implants, stable findings. IMPRESSION: 1. No significant interval changes since the prior examination dated 06/29/2018. No acu te findings. TECHNICAL DOCUMENTATION: JOB ID: [id number] [employer]- All Rights Reserved Reading location - IP/workstation name: [email or web address]
== END ==
LOC: OD 13:28
PROVIDERS: ATTEND Nurse Practitioner Family
DX: R05 Cough (principal)
CPT/HCPCS: 71046

== ENCOUNTER 2018-07-26 16:04 | Emergency (ER) | payer OTHER ==
[2018-07-26] MEDS ORDERED: NORMAL SALINE 1000 ML 1,000 ML IV ONE (16:38)
--- NOTE | 2018-07-26 16:44 | ER Document Report ---
ED Medical Screen (RME) - General Chief Complaint: Passed Out Prior to Arrival Stated Complaint: SYNCOPAL EPISODE Time Seen by Provider: 07/26/18 16:32 Primary Care Provider: DARRION BERRIOS FNP-C [Primary Care Provider] - Follow up as needed Notes: Patient presents emergency department for syncopal episodes. She reports history of Phlebotomy once a month. She had 800 cc drained today. on the way home she passed out, became nauseated and vomited. She went home took her BP and it was low. She called her doctor and he told her to come here. pt almost passed out while waiting, became diaphoretic and nauseated. she is under the care of a jailkeeper. I have greeted and performed a rapid initial assessment of this patient. A comprehensive ED assessment and evaluation of the patient, analysis of test results and completion of the medical decision making process will be conducted by additional ED providers. TRAVEL OUTSIDE OF THE [place] IN LAST 30 DAYS: No - Related Data Allergies/Adverse Reactions: No Known Allergies Allergy (Verified 06/29/18 08:53) Past Medical History - Past Medical History Cardiac Medical History: Denies: Hx Congestive Heart Failure, Hx Heart Attack, Hx Hypertension Pulmonary Medical History: Denies: Hx Asthma, Hx Bronchitis, Hx COPD, Hx Pneumonia, Hx Tuberculosis Neurological Medical History: Denies: Hx Seizures Renal/ Medical History: Reports: Hx Kidney Stones. Denies: Hx End Stage Renal Disease, Hx Peritoneal Dialysis GI Medical History: Denies: Hx Cirrhosis, Hx Gastroesophageal Reflux Disease, Hx Ulcer Musculoskeltal Medical History: Denies Hx Arthritis, Denies Hx Multiple Sclerosis Psychiatric Medical History: Denies: Hx Bipolar Disorder, Hx Depression, Hx Schizophrenia Past Surgical History: Reports: Hx Breast Surgery, Hx Oral Surgery, Other - Hemorrhoidectomy, breast augmentation, colonoscopy October 2016 - Immunizations Hx Diphtheria, Pertussis, Tetanus Vaccination: No Physical Exam - Vital signs Vitals: Temp Pulse Resp BP Pulse Ox 99.4 F 123 H 18 84/59 L 97 07/26/18 16:08 07/26/18 16:08 07/26/18 16:08 07/26/18 16:08 07/26/18 16:08 Course - Vital Signs Vital signs: Temp Pulse Resp BP Pulse Ox 99.4 F 123 H 18 84/59 L 97 07/26/18 16:08 07/26/18 16:08 07/26/18 16:08 07/26/18 16:08 07/26/18 16:08 Doctor's Discharge - Discharge Referrals: DARRION BERRIOS FNP-C [Primary Care Provider] - Follow up as needed
[2018-07-26 16:59] LABS: ABSOLUTE MONOCYTES (AUTO) 0.4 10^3/uL (0.1-1.4); ABSOLUTE NEUT (AUTO) 3.5 10^3/uL (1.7-8.2); BASOPHILS % (AUTO) 0.6 % (0-2); EOSINOPHILS % (AUTO) 0.1 % (0-6); HEMATOCRIT 29.2 % (36.0-47.0); HEMOGLOBIN 10.2 g/dL (12.0-15.5); LYMPHOCYTES % (AUTO) 19.7 % (13-45); MEAN CORPUSCULAR VOLUME 94 fl (80-97); MONOCYTES % (AUTO) 7.9 % (3-13); PLATELET COUNT 280 10^3/uL (150-450); RED CELL DISTRIBUTION WIDTH 15.6 % (11.5-14.0); SEGMENTED NEUTROPHILS % (AUTO) 71.7 % (42-78); TOTAL CELLS COUNTED % (AUTO) 100 %; WHITE BLOOD COUNT 4.9 10^3/uL (4.0-10.5)
[2018-07-26 17:17] LABS: ALANINE AMINOTRANSFERASE 42 U/L (9-52); ALBUMIN 3.1 g/dL (3.5-5.0); ALKALINE PHOSPHATASE 106 U/L (38-126); ANION GAP 9 (5-19); ASPARTATE AMINO TRANSFERASE 116 U/L (14-36); BILIRUBIN,DIRECT 0.6 mg/dL (0.0-0.4); BILIRUBIN,TOTAL 0.9 mg/dL (0.2-1.3); BLOOD UREA NITROGEN 8 mg/dL (7-20); CALCIUM 8.6 mg/dL (8.4-10.2); CARBON DIOXIDE 30 mmol/L (22-30); CHLORIDE 96 mmol/L (98-107); GLUCOSE 131 mg/dL (75-110); SODIUM 135.1 mmol/L (137-145); TOTAL PROTEIN 5.9 g/dL (6.3-8.2)
[2018-07-26 17:37] LABS: POTASSIUM 2.9 mmol/L (3.6-5.0)
[2018-07-26] MEDS ORDERED: POTASSIUM CHLORIDE 10 MEQ CAPSULE.ER PO ONE (18:18)
--- NOTE | 2018-07-26 18:18 | ER Document Report ---
ED Syncope and Near Syncope - General Chief Complaint: Passed Out Prior to Arrival Stated Complaint: SYNCOPAL EPISODE Time Seen by Provider: 07/26/18 18:18 Primary Care Provider: DARRION BERRIOS FNP-C [Primary Care Provider] - Follow up as needed Mode of Arrival: Ambulatory Information source: Patient Notes: HISTORY OF PRESENT ILLNESS: Patient is a 32-year-old female with a past medical history of hemochromatosis with weekly phlebotomy who presents with weakness and episodes of syncope that occurred after 800 mL of phlebotomy. Location: Global Onset: Sudden Provocation: Giving blood Quality: Weakness Radiation: None Severity: Mild to moderate Timing: Episodic, currently resolved LMP: "2014" Associated symptoms: No fevers or chills, no cough or congestion, no vomiting or diarrhea REVIEW OF SYSTEMS: CONSTITUTIONAL : Positive for malaise. Denies fever or chills, no sweats. Denies recent illness. EENT: Denies eye, ear, throat, or mouth pain or symptoms. Denies nasal or sinus congestion. CARDIOVASCULAR: Denies chest pain. RESPIRATORY: Denies cough, cold, or chest congestion. Denies shortness of breath, difficulty breathing, or wheezing. GASTROINTESTINAL: Denies abdominal pain. Denies nausea, vomiting, or diarrhea. Denies constipation. GENITOURINARY: Denies difficulty urinating, painful urination, burning, frequency, or blood in urine. Denies vaginal bleeding, abnormal or irregular periods. MUSCULOSKELETAL: Denies neck or back pain or joint pain or swelling. SKIN: Denies rash or skin lesions. HEMATOLOGIC : Denies easy bruising or bleeding. LYMPHATIC: Denies swollen, enlarged glands. NEUROLOGICAL: Positive for syncope. Denies altered mental status or loss of consciousness. Denies headache. Denies weakness or paralysis or loss of use of either side. Denies problems with gait or speech. Denies sensory or motor loss. PSYCHIATRIC: Denies anxiety or stress or depression. All other systems reviewed and negative. PHYSICAL EXAMINATION: GENERAL: Well-appearing, well-nourished and in no acute distress. HEAD: Atraumatic, normocephalic. No scalp deformity, depression, or crepitance. EYES: Pupils are 3 mm and equal/round/reactive to light, extraocular movements intact, sclera anicteric, conjunctiva are normal. ENT: Nares patent bilaterally, oropharynx clear without exudates or palatal petechia. Moist mucous membranes. No tonsil hypertrophy. NECK: Normal range of motion, supple without lymphadenopathy. LUNGS: Breath sounds present, equal, and clear to auscultation bilaterally. No wheezes, rales, or rhonchi. HEART: Regular rate and rhythm without murmurs, rubs, or gallops. 2+ peripheral pulses. Normal capillary refill. ABDOMEN: Soft, nontender, nondistended. Normoactive bowel sounds. No guarding, no rebound. No masses appreciated. BACK: Normal contour, no midline tenderness. Rectal exam deferred. PELVC: Deferred. EXTREMITIES: Normal range of motion, no pitting or edema. No cyanosis. NEUROLOGICAL: No focal neurological deficits. Moves all extremities spontaneously and on command. PSYCH: Normal mood, normal affect. No suicidal thoughts/ideations. No homocidal thoughts/ideations. No hallucinations. SKIN: Warm, dry, normal turgor, no rashes or lesions noted. ASSESSMENT AND PLAN: This patient is a 32-year-old female who presents with episodes of syncope most likely related to phlebotomy, question dehydration versus anemia. 1. Will obtain labs, urine, test, drug screen, and give IV fluids. 2. Will give supplemental potassium after initial preliminary blood work shows hypokalemia. TRAVEL OUTSIDE OF THE [place] IN LAST 30 DAYS: No - Related Data Allergies/Adverse Reactions: No Known Allergies Allergy (Verified 06/29/18 08:53) Past Medical History - General Information source: Patient - Social History Smoking Status: Former Smoker Chew tobacco use (# tins/day): No Frequency of alcohol use: None Drug Abuse: None Lives with: Family Family History: Hypertension Patient has suicidal ideation: No Patient has homicidal ideation: No - Past Medical History Cardiac Medical History: Reports: None Denies: Hx Congestive Heart Failure, Hx Heart Attack, Hx Hypertension Pulmonary Medical History: Reports: None Denies: Hx Asthma, Hx Bronchitis, Hx COPD, Hx Pneumonia, Hx Tuberculosis EENT Medical History: Reports: None Neurological Medical History: Reports: None. Denies: Hx Seizures Endocrine Medical History: Reports: None Renal/ Medical History: Reports: Hx Kidney Stones. Denies: Hx End Stage Renal Disease, Hx Peritoneal Dialysis Malignancy Medical History: Reports: None GI Medical History: Reports: None. Denies: Hx Cirrhosis, Hx Gastroesophageal Reflux Disease, Hx Ulcer Musculoskeletal Medical History: Reports None, Denies Hx Arthritis, Denies Hx Multiple Sclerosis Skin Medical History: Reports None Psychiatric Medical History: Reports: None Denies: Hx Bipolar Disorder, Hx Depression, Hx Schizophrenia Traumatic Medical History: Reports: None Infectious Medical History: Reports: None Past Surgical History: Reports: Hx Breast Surgery, Hx Oral Surgery, Other - Hemorrhoidectomy, breast augmentation, colonoscopy October 2016 - Immunizations Immunizations up to date: Yes Hx Diphtheria, Pertussis, Tetanus Vaccination: No Physical Exam - Vital signs Vitals: Temp Pulse Resp BP Pulse Ox 99.4 F 123 H 18 84/59 L 97 07/26/18 16:08 07/26/18 16:08 07/26/18 16:08 07/26/18 16:08 07/26/18 16:08 Course - Re-evaluation Re-evalutation: 07/27/18 01:09 Repeat potassium has improved. Patient will be discharged home with return prec autions and follow-up. Patient voices understanding and agreeing with the plan. - Vital Signs Vital signs: Temp Pulse Resp BP Pulse Ox 98.2 F 123 H 18 94/76 L 96 07/27/18 01:26 07/26/18 16:08 07/27/18 01:18 07/27/18 01:18 07/27/18 01:18 - Laboratory Result Diagrams: 07/26/18 16:35 07/26/18 23:36 Laboratory results interpreted by me: 07/26/18 07/26/18 07/26/18 16:35 16:35 16:44 RBC 3.10 L Hgb 10.2 L Hct 29.2 L RDW 15.6 H Sodium 135.1 L Potassium 2.9 L* Chloride 96 L Glucose 131 H POC Glucose 114 H Direct Bilirubin 0.6 H AST 116 H Total Protein 5.9 L Albumin 3.1 L Urine Ketones Urine Urobilinogen 07/26/18 19:58 RBC Hgb Hct RDW Sodium Potassium Chloride Glucose POC Glucose Direct Bilirubin AST Total Protein Albumin Urine Ketones TRACE H Urine Urobilinogen 2.0 H - EKG Interpretation by Me EKG shows normal: Sinus rhythm Rate: Normal Rhythm: NSR [place]/QRS: No: Right axis deviation, Left axis deviation, RBBB, LBBB, IVCD, LAHB/LAFB, LPHB/LPFB, Bifasicular block Voltage: No: Increased voltage, Consistant with LVH, Decreased voltage, Throughout, Limb leads P Waves: No: ANYI, LAE, Absent, AV Dissociation, Other Heart block present: No: 1st Degree, Mobitz 1, Mobitz 2, CHB (3rd degree block) When compared to previous EKG there are: No significant change Discharge - Discharge Clinical Impression: Hypokalemia, Syncope and collapse Condition: Good Disposition: HOME, SELF-CARE Instructions: Hypokalemia ([facility]) Additional Instructions: You have been evaluated in the Emergency Department for having episodes of passing out as well as having a low potassium. While here, you were given both oral and IV potassium and it is now safe to be discharged home. Please follow- up with your primary physician as well as her specialists as instructed in 1 week to be rechecked. Return to the Emergency Department if you experience high fevers, confusion/disorientation, or any other concerning symptoms. Referrals: DARRION BERRIOS FNP-C [Primary Care Provider] - Follow up as needed Print Language: Tamazight
[2018-07-26] MEDS: POTASSI CL 20 MEQ/50 ML RIDER 20 MEQ/50 ML RTUPB IV SCH ×2 (18:45→20:11)
[2018-07-26 20:11] LABS: APPEARANCE,URINE SLIGHTLY-CLOUDY; BILIRUBIN,URINE NEGATIVE (NEGATIVE); COLOR,URINE YELLOW; GLUCOSE, URINE NEGATIVE (NEGATIVE); KETONES,URINE TRACE mg/dL (NEGATIVE); LEUKOCYTE ESTERASE,URINE NEGATIVE (NEGATIVE); NITRITE,URINE NEGATIVE (NEGATIVE); PROTEIN,URINE NEGATIVE (NEGATIVE); URINE SPECIFIC GRAVITY 1.017
[2018-07-26 20:27] LABS: URINE AMPHETAMINES SCREEN NEGATIVE; URINE BARBITURATES SCREEN NEGATIVE; URINE BENZODIAZEPINES SCREEN NEGATIVE; URINE COCAINE SCREEN NEGATIVE; URINE MARIJUANA (THC) SCREEN NEGATIVE; URINE METHADONE SCREEN NEGATIVE; URINE PHENCYCLIDINE SCREEN NEGATIVE
[2018-07-27 01:23] VITALS: BP 94/76
== END 2018-07-27 01:26 | disposition home or self-care (01) ==
LOC: ER 16:04
DX: E87.6 Hypokalemia (principal); R55 Syncope and collapse; E83.119 Hemochromatosis, unspecified; R53.1 Weakness; R53.81 Other malaise; Z87.891 Personal history of nicotine dependence
CPT/HCPCS: 99284; 96361; 96365; 96366; 36415; 82962; 84132; 85025; 81025; 80053; 81001; 80307; J3480; J7030

== ENCOUNTER 2018-09-21 14:46 | Observation (INO) | payer OTHER ==
--- NOTE | 2018-09-21 15:10 | ER Document Report ---
ED Medical Screen (RME) - General Chief Complaint: Abnormal Lab Results Stated Complaint: ABNORMAL LABS,BODY PAIN Time Seen by Provider: 09/21/18 15:06 Primary Care Provider: DARRION BERRIOS FNP-C [Primary Care Provider] - Follow up as needed Mode of Arrival: Ambulatory Information source: Patient Notes: 32-year-old female presented to ED after she was sent from her doctor to come to the emergency room for potassium of 2.5 patient has body aches all over complains of being weak dizzy and falling a lot she has a history of bronchitis and is on inhalers she also has leukopenia and lymphopenia and kidney stones. She lives with her family. She states she has had a history of breast augmentation and she occasionally drinks. I have greeted and performed a rapid initial assessment of this patient. A comprehensive ED assessment and evaluation of the patient, analysis of test results and completion of medical decision making process will be conducted by an additional ED providers. TRAVEL OUTSIDE OF THE [place] IN LAST 30 DAYS: No - Related Data Allergies/Adverse Reactions: No Known Allergies Allergy (Verified 09/21/18 14:47) Past Medical History - Past Medical History Cardiac Medical History: Denies: Hx Congestive Heart Failure, Hx Heart Attack, Hx Hypertension Pulmonary Medical History: Denies: Hx Asthma, Hx Bronchitis, Hx COPD, Hx Pneumonia, Hx Tuberculosis Neurological Medical History: Denies: Hx Seizures Renal/ Medical History: Reports: Hx Kidney Stones. Denies: Hx End Stage Renal Disease, Hx Peritoneal Dialysis GI Medical History: Denies: Hx Cirrhosis, Hx Gastroesophageal Reflux Disease, Hx Ulcer Musculoskeltal Medical History: Denies Hx Arthritis, Denies Hx Multiple Scl erosis Psychiatric Medical History: Denies: Hx Bipolar Disorder, Hx Depression, Hx Schizophrenia Past Surgical History: Reports: Hx Breast Surgery, Hx Oral Surgery, Other - Hemorrhoidectomy, breast augmentation, colonoscopy October 2016 - Immunizations Immunizations up to date: Yes Hx Diphtheria, Pertussis, Tetanus Vaccination: No Physical Exam - Vital signs Vitals: Temp Pulse Resp BP Pulse Ox 98.6 F 101 H 18 96/66 L 100 09/21/18 14:58 09/21/18 14:58 09/21/18 14:58 09/21/18 14:58 09/21/18 14:58 Course - Vital Signs Vital signs: Temp Pulse Resp BP Pulse Ox 98.6 F 101 H 18 96/66 L 100 09/21/18 14:58 09/21/18 14:58 09/21/18 14:58 09/21/18 14:58 09/21/18 14:58 Doctor's Discharge - Discharge Referrals: DARRION BERRIOS FNP-C [Primary Care Provider] - Follow up as needed
[2018-09-21 15:57] LABS: HEMATOCRIT 33.7 % (36.0-47.0); HEMOGLOBIN 11.3 g/dL (12.0-15.5); MEAN CORPUSCULAR HGB CONC 33.5 g/dL (32.0-36.0); MEAN CORPUSCULAR VOLUME 93 fl (80-97); PLATELET COUNT 147 10^3/uL (150-450); RED BLOOD COUNT 3.65 10^6/uL (3.72-5.28); RED CELL DISTRIBUTION WIDTH 16.4 % (11.5-14.0)
[2018-09-21 16:17] LABS: ABSOLUTE LYMPHOCYTES# (MANUAL) 0.8 10^3/uL (0.5-4.7); ABSOLUTE MONOCYTES # (MANUAL) 0.2 10^3/uL (0.1-1.4); BASOPHILS % (MANUAL) 0 % (0-2); EOSINOPHILS % (MANUAL) 0 % (0-6); LYMPHOCYTES % (MANUAL) 38 % (13-45); MONOCYTES % (MANUAL) 10 % (3-13); SEGMENTED NEUTROPHILS % (MAN) 52 % (42-78); TOTAL CELLS COUNTED 50
[2018-09-21 16:19] LABS: ANISOCYTOSIS 1+; PLATELET COMMENT DECREASED; POIKILOCYTOSIS 1+; STOMATOCYTES 1+
[2018-09-21 16:29] LABS: ALANINE AMINOTRANSFERASE 55 U/L (9-52); ALBUMIN 3.3 g/dL (3.5-5.0); ALKALINE PHOSPHATASE 132 U/L (38-126); ANION GAP 12 (5-19); ASPARTATE AMINO TRANSFERASE 155 U/L (14-36); BILIRUBIN,DIRECT 0.8 mg/dL (0.0-0.4); BILIRUBIN,TOTAL 1.5 mg/dL (0.2-1.3); BLOOD UREA NITROGEN 11 mg/dL (7-20); CALCIUM 8.8 mg/dL (8.4-10.2); CARBON DIOXIDE 39 mmol/L (22-30); CHLORIDE 80 mmol/L (98-107); GLUCOSE 95 mg/dL (75-110); SODIUM 131.4 mmol/L (137-145); TOTAL PROTEIN 6.7 g/dL (6.3-8.2)
[2018-09-21 16:38] LABS: POTASSIUM 2.6 mmol/L (3.6-5.0)
[2018-09-21 16:40] LABS: CREATINE KINASE MB 0.37 ng/mL (<4.55); TROPONIN I < 0.012 ng/mL
[2018-09-21] MEDS ORDERED: NORMAL SALINE 1000 ML 1,000 ML IV ONE (16:45)
--- NOTE | 2018-09-21 16:52 | ER Document Report ---
ED General - General Chief Complaint: Abnormal Lab Results Stated Complaint: ABNORMAL LABS,BODY PAIN Time Seen by Provider: 09/21/18 15:06 Mode of Arrival: Ambulatory Information source: Patient Notes: 32-year-old female with a history of hemochromatosis, leukopenia, and felt to have an undiagnosed autoimmune disorder that has had electrolyte disarray in the past who presents to the emergency room with progressively worsening weakness and near syncope. Patient's the patient has had symptoms like this in the past from hypokalemia and hypocalcemia. In the past, the symptoms have progressed to the point where she has multiple episodes of syncope. She has not reached a point yet but feels like her symptoms have been steadily getting worse over the last few days. TRAVEL OUTSIDE OF THE [place] IN LAST 30 DAYS: No - HPI Onset: Last week Onset/Duration: Gradual Quality of pain: No pain Severity: None Pain Level: Denies Associated symptoms: denies: Chest pain, Fever, Shortness of breath Exacerbated by: Denies Relieved by: Denies Similar symptoms previously: Yes Recently seen / treated by doctor: Yes - Related Data Allergies/Adverse Reactions: No Known Allergies Allergy (Verified 09/21/18 14:47) Past Medical History - General Information source: Patient - Social History Smoking Status: Never Smoker Cigarette use (# per day): No Chew tobacco use (# tins/day): No Frequency of alcohol use: wine Drug Abuse: None Lives with: Family Family History: None, Hypertension Patient has suicidal ideation: No Patient has homicidal ideation: No - Past Medical History Cardiac Medical History: Denies: Hx Congestive Heart Failure, Hx Heart Attack, Hx Hypertension Pulmonary Medical History: Denies: Hx Asthma, Hx Bronchitis, Hx COPD, Hx Pneumonia, Hx Tuberculosis Neurological Medical History: Denies: Hx Seizures Endocrine Medical History: Reports: Other - Suspected autoimmune disease Renal/ Medical History: Reports: Hx Kidney Stones. Denies: Hx End Stage Renal Disease, Hx Peritoneal Dialysis Malignancy Medical History: Reports: Other - Leukopenia GI Medical History: Reports: Other - Hemochromatosis. Denies: Hx Cirrhosis, Hx Gastroesophageal Reflux Disease, Hx Ulcer Musculoskeletal Medical History: Denies Hx Arthritis, Denies Hx Multiple Sclerosis Psychiatric Medical History: Denies: Hx Bipolar Disorder, Hx Depression, Hx Schizophrenia Past Surgical History: Reports: Hx Breast Surgery, Hx Oral Surgery, Other - Hemorrhoidectomy, breast augmentation, colonoscopy October 2016 - Immunizations Immunizations up to date: Yes Hx Diphtheria, Pertussis, Tetanus Vaccination: No Review of Systems - Review of Systems Constitutional: denies: Chills, Fever EENT: No symptoms reported Cardiovascular: denies: Chest pain, Palpitations, Heart racing Respiratory: No symptoms reported Gastrointestinal: No symptoms reported Genitourinary: No symptoms reported Female Genitourinary: No symptoms reported Musculoskeletal: See HPI Skin: No symptoms reported Hematologic/Lymphatic: No symptoms reported Neurological/Psychological: See HPI Physical Exam - Vital signs Vitals: Temp Pulse Resp BP Pulse Ox 98.6 F 101 H 18 96/66 L 100 09/21/18 14:58 09/21/18 14:58 09/21/18 14:58 09/21/18 14:58 09/21/18 14:58 Notes: Physical exam: GENERAL: She is alert and oriented x3, no acute distress HEAD: Atraumatic, normocephalic. EYES: Pupils equal round and reactive to light, extraocular movements intact, sclera anicteric, conjunctiva are normal. ENT: TMs normal, nares patent, oropharynx clear without exudates. Moist mucous membranes. NECK: Normal range of motion, supple without obvious mass or JVD. LUNGS: Breath sounds clear to auscultation bilaterally and equal. No wheezes rales or rhonchi. HEART: Regular rate and rhythm without murmurs, rubs or gallops. ABDOMEN: Soft, normoactive bowel sounds. No tenderness to palpation. No guarding, no rebound. No masses appreciated. EXTREMITIES: Normal range of motion, no pitting or edema. No clubbing or cyanosis. NEUROLOGICAL: Cranial nerves II through XII grossly intact. Normal speech, moving all extremities. PSYCH: Normal mood, normal affect. SKIN: Warm, Dry, normal turgor, no rashes or lesions noted. Course - Vital Signs Vital signs: Temp Pulse Resp BP Pulse Ox 98.5 F 101 H 24 H 96/66 L 87 L 09/21/18 19:53 09/21/18 14:58 09/21/18 19:31 09/21/18 19:31 09/21/18 17:23 - Laboratory Result Diagrams: 09/21/18 15:30 09/21/18 15:30 Laboratory results interpreted by me: 09/21/18 09/21/18 15:30 15:30 WBC 2.0 L RBC 3.65 L Hgb 11.3 L Hct 33.7 L RDW 16.4 H Plt Count 147 L Abs Neuts (Manual) 1.0 L Sodium 131.4 L Potassium 2.6 L* Chloride 80 L Carbon Dioxide 39 H Creatinine 1.37 H Est GFR ( Amer) 54 L Est GFR (Non-Af Amer) 45 L Total Bilirubin 1.5 H Direct Bilirubin 0.8 H AST 155 H ALT 55 H Alkaline Phosphatase 132 H Albumin 3.3 L - EKG Interpretation by Me Rate: Normal Rhythm: NSR - EKG shows normal sinus rhythm with a ventricular rate of 89, nonspecific T changes Discharge - Discharge Clinical Impression: Near syncope, Hypokalemia Condition: Stable Disposition: ADMITTED INPATIENT Admitting Provider: Yahaira (Hospitalist) Unit Admitted: Telemetry
[2018-09-21] MEDS: POTASSI CL 20 MEQ/50 ML RIDER 20 MEQ/50 ML RTUPB IV SCH ×2 (17:39→19:30)
--- NOTE | 2018-09-21 18:02 | PDOC H&P ---
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 Patient had prior syncopal episodes and had previous hospitalization and multiple work-up. Onher recent admission, she was set up with Dr. Bennett for an event monitor and she says she had this and was told the event monitor turned out unremarkable. She says she had another episode last night while she stood up and went to open the door. She says she was caught by her son and did not hit her head. She siad this lasted for a few seconds. She says this happened again this morning while she was standing. She says she feels light headed and had dimming of vision prior the episodes. In the ER, she was noted to be hypokalemic. She hull shave chronic issues with hypokalemia and is on Potassium supplements. Denies vomiting or diarrhea. Past Medical History Cardiac Medical History: Denies: Congestive Heart Failure, Myocardial Infarction, Hypertension Pulmonary Medical History: Denies: Asthma, Bronchitis, Chronic Obstructive Pulmonary Disease (COPD), Pneumonia, Tuberculosis Neurological Medical History: Denies: Seizures Renal/ Medical History: Denies: End Stage Renal Disease GI Medical History: Denies: Cirrhosis, Gastroesophageal Reflux Disease Musculoskeltal Medical History: Denies: Arthritis Psychiatric Medical History: Denies: Bipolar Disorder, Depression Hematology: Reports: Anemia, Bleeding Tendencies Past Surgical History Past Surgical History: Reports: Other - Hemorrhoidectomy, breast augmentation, colonoscopy October 2016 Social History Smoking Status: Never Smoker Frequency of Alcohol Use: None Hx Recreational Drug Use: No Drugs: None Hx Prescription Drug Abuse: No Family History Family History: Hypertension Parental Family History Reviewed: Yes - no premature CAD Children Family History Reviewed: No Sibling(s) Family History Reviewed.: No Medication/Allergy Home Medications: Fexofenadine HCl [Azra] 180 mg PO DAILY 05/24/18 Folic Acid [Folvite 1 mg Tablet] 1 mg PO DAILY 05/24/18 Meloxicam [Mobic] 7.5 mg PO DAILYP PRN 05/24/18 Ondansetron [Zofran Odt 4 mg Tablet] 4 mg PO Q4HP PRN 05/24/18 Naproxen 500 mg PO BID PRN #30 tablet 06/29/18 Allergies/Adverse Reactions: No Known Allergies Allergy (Verified 09/21/18 14:47) Review of Systems All systems: reviewed and no additional remarkable complaints except as stated - as mentioned in HPI Physical Exam Vital Signs: Temp Pulse Resp BP Pulse Ox 98.6 F 101 H 18 96/66 L 100 09/21/18 14:58 09/21/18 14:58 09/21/18 14:58 09/21/18 14:58 09/21/18 14:58 Intake & Output 09/20/18 09/21/18 09/22/18 06:59 06:59 06:59 Weight 86 lb 3.212 oz General appearance: PRESENT: no acute distress, well-developed, well-nourished Head exam: PRESENT: atraumatic, normocephalic Eye exam: PRESENT: conjunctiva pink, EOMI, PERRLA. ABSENT: scleral icterus Ear exam: PRESENT: normal external ear exam Mouth exam: PRESENT: moist, tongue midline Neck exam: ABSENT: carotid bruit, JVD, lymphadenopathy, thyromegaly Respiratory exam: PRESENT: clear to auscultation cielo. ABSENT: rales, rhonchi, wheezes Cardiovascular exam: PRESENT: RRR. ABSENT: diastolic murmur, rubs, systolic murmur Pulses: PRESENT: normal dorsalis pedis pul GI/Abdominal exam: PRESENT: normal bowel sounds, soft. ABSENT: distended, guarding, mass, organolmegaly, rebound, tenderness Rectal exam: PRESENT: deferred Neurological exam: PRESENT: alert, awake, oriented to person, oriented to place, oriented to time, oriented to situation, CN II-XII grossly intact. ABSENT: motor sensory deficit Results Laboratory Results: 09/21/18 15:30 09/21/18 15:30 09/21/18 09/21/18 09/21/18 15:30 15:30 15:30 WBC 2.0 L RBC 3.65 L Hgb 11.3 L Hct 33.7 L MCV 93 MCH 31.0 MCHC 33.5 RDW 16.4 H Plt Count 147 L Seg Neutrophils % Not Reportable Lymphocytes % Not Reportable Monocytes % Not Reportable Eosinophils % Not Reportable Basophils % Not Reportable Absolute Neutrophils Not Reportable Absolute Lymphocytes Not Reportable Absolute Monocytes Not Reportable Absolute Eosinophils Not Reportable Absolute Basophils Not Reportable Sodium 131.4 L Potassium 2.6 L* Chloride 80 L Carbon Dioxide 39 H Anion Gap 12 BUN 11 Creatinine 1.37 H Est GFR ( Amer) 54 L Est GFR (Non-Af Amer) 45 L Glucose 95 Calcium 8.8 Magnesium 1.9 Total Bilirubin 1.5 H AST 155 H ALT 55 H Alkaline Phosphatase 132 H Total Protein 6.7 Albumin 3.3 L 09/21/18 15:30 CK-MB (CK-2) 0.37 Troponin I < 0.012 Assessment and Plan - Diagnosis (1) Syncope Is this a current diagnosis for this admission?: Yes Plan: On chart review, appear she had multiple prior work-up which has been unremarkable. Check orhtostatic vital signs as her history is suggestive of vasovagal nature. IV fluids. (2) Hypokalemia Is this a current diagnosis for this admission?: Yes Plan: She was given 40 meqs IV in the ER. Will give another 40 meqs PO. Repeat BMP after replacement. She has chronic issues with low potassium on review. She has been on Potassium replacements. Review of previous BMP shows she is alkalotic with her bicarb in the high 20s to 30s. Will chekc a urine K and renin aldosterone ratio.
[2018-09-21] MEDS ORDERED: NORMAL SALINE 1000 ML 1,000 ML IV PRN (18:05)
[2018-09-21] MEDS ORDERED: POTASSIUM CHLORIDE 10 MEQ CAPSULE.ER PO ONE ×2 (19:00→23:59)
--- NOTE | 2018-09-21 20:07 | EKG REPORT ---
SEVERITY:- BORDERLINE ECG - SINUS RHYTHM LEFT AXIS DEVIATION BORDERLINE T ABNORMALITIES, ANTERIOR LEADS : Confirmed by: Bailey Rolon MD 21-Sep-2018 20:07:19
[2018-09-21] MEDS: HEPARIN SOD (PORCINE) 5,000 UNIT/ML 1 ML SYRINGE SUBCUT SCH (22:00)
[2018-09-21 23:09] LABS: ANION GAP 8 (5-19); BLOOD UREA NITROGEN 11 mg/dL (7-20); CALCIUM 7.9 mg/dL (8.4-10.2); CARBON DIOXIDE 35 mmol/L (22-30); CHLORIDE 90 mmol/L (98-107); GLUCOSE 146 mg/dL (75-110)
[2018-09-21 23:23] LABS: POTASSIUM 2.8 mmol/L (3.6-5.0)
[2018-09-21] MEDS: POTASSIUM CHLORIDE 20 MEQ/50 ML RTU IV SCH (23:58)
[2018-09-22] MEDS: POTASSIUM CHLORIDE 20 MEQ/50 ML RTU IV SCH (05:30)
--- NOTE | 2018-09-22 08:30 | RADIOLOGY REPORT (SQ) ---
EXAM DESCRIPTION: CAROTID DOPPLER COMPLETED DATE/TIME: 09/21/2018 8:12 pm REASON FOR STUDY: recurrent syncope COMPARISON: CT brain 05/23/2018 TECHNIQUE: Grayscale ultrasound, Doppler velocity and spectra, and color Doppler images acquired of the extra-cranial carotid and vertebral arteries. Images stored on PACS. LIMITATIONS: None. FINDINGS: RIGHT CAROTID CCA Velocities: Within normal limits. Right common carotid artery peak systolic velocity 1.25 m/sec. ICA Velocities Peak systolic 0.95 m/s. End diastolic 0.29 m/s. Proximal ICA/CCA peak systolic ratio 0.9. Spectra normal. No significant plaque. LEFT CAROTID CCA Velocities: Within normal limits. Left common carotid artery peak systolic velocity 1.23 m/sec ICA Velocities Peak systolic 1.0 m/s. End diastolic 0.34 m/s. Proximal ICA/CCA peak systolic ratio 0.9. Spectra normal. No significant plaque. VERTEBRAL ARTERIES: Antegrade flow. Normal waveforms. SUBCLAVIAN ARTERIES: Not evaluated OTHER: No other significant finding. IMPRESSION: NO HEMODYNAMICALLY SIGNIFICANT STENOSIS. COMMENT: Quality ID #[id number]: Velocity criteria are extrapolated from the diameter data as defined by t he Society of Radiologists in Ultrasound Consensus Conference. Radiology 2003: 229; 340-346. TECHNICAL DOCUMENTATION: JOB ID: [id number] [employer]- All Rights Reserved Reading location - IP/workstation name: [email or web address]
[2018-09-22] MEDS: HEPARIN SOD (PORCINE) 5,000 UNIT/ML 1 ML SYRINGE SUBCUT SCH ×2 (09:55→22:00)
[2018-09-22] MEDS: POTASSI CL 20 MEQ/50 ML RIDER 20 MEQ/50 ML RTUPB IV SCH ×2 (12:12→18:38)
--- NOTE | 2018-09-22 12:21 | PDOC PROGRESS REPORT ---
Subjective Progress Note for:: 09/22/18 Subjective:: This is a 32 years old female patient with past medical history of recurrent syncope, leukopenia and hypokalemia presented with this chief complaint of being blacked out. Patient is being evaluated by robotics mechanic, neurologist and her primary care physician for her underlying disorders. Recently diagnosed with possible SLE but is not definitive. At one point also she was told to have hemochromatosis but later told that she is a carrier. Presentation patient found to be hypokalemic with potassium of 2.6 and a repeat potassium is also 2.8 after she got 40 mEq of potassium. I started on 80 mEq of K rider. Patient also found to be hypotensive and her blood work also shows elevated liver chemistries. Reason For Visit: SYNCOPE,HYPOKALEMIA,SHOSHANA Physical Exam Vital Signs: Temp Pulse Resp BP Pulse Ox 98.2 F 88 16 85/59 L 100 09/22/18 12:00 09/22/18 12:00 09/22/18 12:00 09/22/18 12:00 09/22/18 12:00 Intake & Output 09/21/18 09/22/18 09/23/18 06:59 06:59 06:59 Intake Total 150 Balance 150 Weight 40 kg General appearance: PRESENT: no acute distress, well-developed, well-nourished Head exam: PRESENT: atraumatic, normocephalic Eye exam: PRESENT: conjunctiva pink, EOMI, PERRLA. ABSENT: scleral icterus Ear exam: PRESENT: normal external ear exam Mouth exam: PRESENT: moist, tongue midline Neck exam: ABSENT: carotid bruit, JVD, lymphadenopathy, thyromegaly Respiratory exam: PRESENT: clear to auscultation cielo. ABSENT: rales, rhonchi, wheezes Cardiovascular exam: PRESENT: RRR. ABSENT: diastolic murmur, rubs, systolic murmur Pulses: PRESENT: normal dorsalis pedis pul Vascular exam: PRESENT: normal capillary refill GI/Abdominal exam: PRESENT: normal bowel sounds, soft. ABSENT: distended, guarding, mass, organolmegaly, rebound, tenderness Rectal exam: PRESENT: deferred Extremities exam: PRESENT: full ROM. ABSENT: calf tenderness, clubbing, pedal edema Neurological exam: PRESENT: alert, awake, oriented to person, oriented to place, oriented to time, oriented to situation, CN II-XII grossly intact. ABSENT: motor sensory deficit Psychiatric exam: PRESENT: appropriate affect, normal mood. ABSENT: homicidal ideation, suicidal ideation Skin exam: PRESENT: dry, intact, warm. ABSENT: cyanosis, rash Results Laboratory Results: 09/21/18 15:30 09/21/18 22:15 09/21/18 09/21/18 09/21/18 15:30 15:30 15:30 WBC 2.0 L RBC 3.65 L Hgb 11.3 L Hct 33.7 L MCV 93 MCH 31.0 MCHC 33.5 RDW 16.4 H Plt Count 147 L Seg Neutrophils % Not Reportable Lymphocytes % Not Reportable Monocytes % Not Reportable Eosinophils % Not Reportable Basophils % Not Reportable Absolute Neutrophils Not Reportable Absolute Lymphocytes Not Reportable Absolute Monocytes Not Reportable Absolute Eosinophils Not Reportable Absolute Basophils Not Reportable Sodium 131.4 L Potassium 2.6 L* Chloride 80 L Carbon Dioxide 39 H Anion Gap 12 BUN 11 Creatinine 1.37 H Est GFR ( Amer) 54 L Est GFR (Non-Af Amer) 45 L Glucose 95 Calcium 8.8 Magnesium 1.9 Total Bilirubin 1.5 H AST 155 H ALT 55 H Alkaline Phosphatase 132 H Total Protein 6.7 Albumin 3.3 L 09/21/18 22:15 WBC RBC Hgb Hct MCV MCH MCHC RDW Plt Count Seg Neutrophils % Lymphocytes % Monocytes % Eosinophils % Basophils % Absolute Neutrophils Absolute Lymphocytes Absolute Monocytes Absolute Eosinophils Absolute Basophils Sodium 133.0 L Potassium 2.8 L* Chloride 90 L Carbon Dioxide 35 H Anion Gap 8 BUN 11 Creatinine 0.94 Est GFR ( Amer) > 60 Est GFR (Non-Af Amer) > 60 Glucose 146 H Calcium 7.9 L Magnesium Total Bilirubin AST ALT Alkaline Phosphatase Total Protein Albumin 09/21/18 15:30 CK-MB (CK-2) 0.37 Troponin I < 0.012 Impressions: Carotid Doppler Study 09/21/18 00:00 IMPRESSION: NO HEMODYNAMICALLY SIGNIFICANT STENOSIS. Assessment and Plan - Diagnosis (1) Hypokalemia Is this a current diagnosis for this admission?: Yes Plan: Etiology is unclear. We will replete her potassium. And check her BMP in a.m. (2) Acute kidney injury Is this a current diagnosis for this admission?: Yes Plan: Most probably due to dehydration. She is being hydrated cautiously. (3) Syncope Is this a current diagnosis for this admission?: Yes Plan: Most probably due to orthostatic hypotension. Hydration hopefully will corrected.
[2018-09-22 13:52] LABS: PATH REVIEW PATHOLOGIST REVIEWED
[2018-09-23] MEDS: POTASSI CL 20 MEQ/50 ML RIDER 20 MEQ/50 ML RTUPB IV SCH ×4 (01:11→07:38)
[2018-09-23 07:50] LABS: BLOOD UREA NITROGEN 6 mg/dL (7-20); GLUCOSE 82 mg/dL (75-110); POTASSIUM 4.4 mmol/L (3.6-5.0)
[2018-09-23 07:56] LABS: CARBON DIOXIDE 23 mmol/L (22-30); CHLORIDE 112 mmol/L (98-107); SODIUM 136.9 mmol/L (137-145)
[2018-09-23 08:07] LABS: CALCIUM 7.1 mg/dL (8.4-10.2)
[2018-09-23 08:11] LABS: ANION GAP 2 (5-19)
[2018-09-23] MEDS: HEPARIN SOD (PORCINE) 5,000 UNIT/ML 1 ML SYRINGE SUBCUT SCH (09:46)
[2018-09-23 10:39] LABS: HEMATOCRIT 25.2 % (36.0-47.0); MEAN CORPUSCULAR HEMOGLOBIN 31.8 pg (27.0-33.4); MEAN CORPUSCULAR HGB CONC 32.8 g/dL (32.0-36.0); PLATELET COUNT 117 10^3/uL (150-450); RED CELL DISTRIBUTION WIDTH 17.1 % (11.5-14.0)
[2018-09-23 11:05] LABS: HEMOGLOBIN 8.3 g/dL (12.0-15.5)
[2018-09-23 11:06] LABS: MEAN CORPUSCULAR VOLUME 97 fl (80-97)
[2018-09-23 11:15] LABS: WHITE BLOOD COUNT 1.5 10^3/uL (4.0-10.5)
--- NOTE | 2018-09-23 12:25 | PDOC DISCHARGE SUMMARY ---
General - Admit/Disc Date/PCP Admission Date/Primary Care Provider: 09/21/18 17:48 DU [facility]DENAS[facility] Discharge Date: 09/23/18 - Discharge Diagnosis (1) Hypokalemia Is this a current diagnosis for this admission?: Yes (2) Acute kidney injury Is this a current diagnosis for this admission?: Yes (3) Syncope Is this a current diagnosis for this admission?: Yes - Additional Information Home Medications: Diclofenac Sodium [Voltaren] 75 mg PO BID 09/22/18 Folic Acid [Folvite 1 mg Tablet] 1 mg PO DAILY 09/22/18 Norethindrone-E.estradiol-Iron [Microgestin Fe 1-20 Tablet] 1 tab PO DAILY 09/22/18 Ondansetron HCl [Zofran 8 mg Tablet] 8 mg PO Q8HP PRN 09/22/18 Potassium Chloride [K-Tab ER] 10 meq PO DAILY 09/22/18 History of Present Illness History of Present Illness: ANNE MARIE DRUMMOND is a 32 year old female with a PMH of prior, recurrent syncope, recent possible SLE, and previously diagnosed with hemochromatosis but later was 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 Patient had prior syncopal episodes and had previous hospitalization and multiple work-up. Onher recent admission, she was set up with Dr. Bennett for an event monitor and she says she had this and was told the event monitor turned out unremarkable. She says she had another episode last night while she stood up and went to open the door. She says she was caught by her son and did not hit her head. She siad this lasted for a few seconds. She says this happened again this morning while she was standing. She says she feels light headed and had dimming of vision prior the episodes. In the ER, she was noted to be hypokalemic. She hull shave chronic issues with hypokalemia and is on Potassium supplements. Denies vomiting or diarrhea. Hospital Course Hospital Course: This is a 32 years old female patient with past medical history of recurrent syncope, leukopenia and hypokalemia presented with this chief complaint of being blacked out. Patient is being evaluated by security control center operator, neurologist and her primary care physician for her underlying disorders. Recently diagnosed with possible SLE but is not definitive. At one point also she was told to have hemochromatosis but later told that she is a carrier. Presentation patient found to be hypokalemic with potassium of 2.6 and a repeat potassium is also 2.8 after she got 40 mEq of potassium. I started on 80 mEq of K rider. Patient also found to be hypotensive and her blood work also shows elevated liver chemistries. This morning patient seen while sitting up in bed. She is awake alert oriented. She is not in pain or distress. No nausea vomiting or abdominal pain. Her potassium corrected but her white cell count dropped from 2-1.5. She has upcoming appointment with her security control center operator and oncologist. Patient advised to keep up with her appointment. Physical Exam Vital Signs: Temp Pulse Resp BP Pulse Ox 97.5 F 70 18 98/64 L 100 09/23/18 12:16 09/23/18 12:16 09/23/18 12:16 09/23/18 12:16 09/23/18 12:16 Intake & Output 09/22/18 09/23/18 09/24/18 06:59 06:59 06:59 Intake Total 150 1422 50 Balance 150 1422 50 Weight 40 kg 40 kg General appearance: PRESENT: no acute distress Eye exam: PRESENT: conjunctiva pink Neck exam: ABSENT: carotid bruit, JVD, lymphadenopathy, thyromegaly Respiratory exam: PRESENT: clear to auscultation cielo. ABSENT: rales, rhonchi, wheezes Cardiovascular exam: PRESENT: RRR. ABSENT: diastolic murmur, rubs, systolic murmur Neurological exam: PRESENT: alert, awake, oriented to time, oriented to situation Results Laboratory Results: 09/23/18 09:56 09/23/18 07:05 09/23/18 09/23/18 09/23/18 07:05 07:05 09:56 WBC Cancelled 1.5 L* RBC Cancelled 2.60 L Hgb Cancelled 8.3 L D Hct Cancelled 25.2 L MCV Cancelled 97 D MCH Cancelled 31.8 MCHC Cancelled 32.8 RDW Cancelled 17.1 H Plt Count Cancelled 117 L Sodium 136.9 L Potassium 4.4 Chloride 112 H Carbon Dioxide 23 Anion Gap 2 L BUN 6 L Creatinine 0.48 L Est GFR ( Amer) > 60 Est GFR (Non-Af Amer) > 60 Glucose 82 Calcium 7.1 L 09/21/18 15:30 CK-MB (CK-2) 0.37 Troponin I < 0.012 Impressions: Carotid Doppler Study 09/21/18 00:00 IMPRESSION: NO HEMODYNAMICALLY SIGNIFICANT STENOSIS. Qualifiers - * PATIENT BEING DISCHARGED WITH ANY OF THE FOLLOWING DIAGNOSIS: No Acute Heart Failure Is this a Heart Failure Patient?: No
[2018-09-23 14:50] VITALS: BP 84/60
[2018-09-26 07:11] LABS: ALDOSTERONE RENIN RATIO 2 3.3 (0.0-30.0); RENIN ACTIVITY 1.04 ng/mL/hr (0.167-5.38)
== END 2018-09-23 14:30 | disposition home or self-care (01) ==
LOC: ER 14:46 → EH 17:48 → INTOOBSV 17:48 → 4S 20:11
PROVIDERS: ADMIT Internal Medicine; ATTEND Internal Medicine
DX: E87.6 Hypokalemia (principal); N17.9 Acute kidney failure, unspecified; R55 Syncope and collapse; I95.9 Hypotension, unspecified; Z14.8 Genetic carrier of other disease; D72.819 Decreased white blood cell count, unspecified; D72.810 Lymphocytopenia; Z98.82 Breast implant status; Z98.890 Other specified postprocedural states; Z82.49 Family history of ischemic heart disease and other diseases of the circulatory system; Z79.899 Other long term (current) drug therapy; Z87.442 Personal history of urinary calculi
CPT/HCPCS: 93005; 99285; 96374; 36415 ×3; 82553; 83735; 84133; 85025; 85027; 80048 ×2; 80053; 84484; 82088; 84244; 93880; 93010; G0378 ×4; J1644; J3480 ×3; J7030 ×2